=== PATIENT | female | born 1945 | race Caucasian/White ===

== ENCOUNTER → 2017-05-31 | Day surgery (SDC) | payer OTHER ==
[2017-05-09 15:07] VITALS: Ht 161.3 cm; Wt 95.5 kg
[~2017-05-31] VITALS: Ht 161.3 cm; Wt 95.5 kg
[~2017-05-31] MED LIST: 500ML BSS 0.3ML EPI 1:1000PF IRRIG ONE; ACETAMINOPHEN 325 MG TAB PO PRN; AMLO10TA3 PO; AMVISC PLUS 0.8ML SYRINGE INT OCU ONE; ATROPINE SULFATE 0.1 MG/ML 5ML SYR IV PRN; BSS FLUSH ONE; COEN100C11 PO; ENDOCOAT 0.85ML SYRINGE INT OCU ONE; EpHEDrine SULFATE INJ 50 MG/ML AMP IV PRN; EpINEphrine INJ 1MG/ML AMP 1 MG/ML AMP ONE; HYDR12.56 PO; LACTATED RINGER'S 1000ML 500 ML IV SCH; LIDOCAINE 4% OP SOLN DROP CHARGE ONE; LIDOCAINE 4% OP SOLN DROP CHARGE OPR SCH; LOSA50TA54 PO; METO50TA16 PO; MIDAZOLAM HCL 1 MG/ML 2ML VIAL ONE; MIX: 4ML BSS 1ML EPI 1:1000 PF TOP ONE; MOXIFLOXACIN OPH SOLN PER DROP CHARGE ONE; MULT-506 PO; OMG3 PO; POVIDONE-IODINE OP SOLN 30 ML BTL ONE; PROPARACAINE 0.5% OP SOLN PER DROP CHARGE OPR SCH; TOBRAMYCIN/DEXAMETHASONE OPH OINT PER APPLN CHARGE ONE
[2017-05-31] MEDS: PHENYLEPHRINE HCL 2.5% OP SOLN PER DROP CHARGE OPR SCH ×3 (11:17→11:27)
[2017-05-31] MEDS: TROPICAMIDE 1% OP SOLN PER DROP CHARGE OPR SCH ×3 (11:18→11:28)
[2017-05-31] MEDS: CYCLOPENTOLATE HCL 1% OP SOLN PER DROP CHARGE OPR SCH ×3 (11:19→11:29)
[2017-05-31] MEDS: MOXIFLOXACIN OPH SOLN PER DROP CHARGE OPR SCH ×3 (11:20→11:30)
--- NOTE | 2017-05-31 11:41 | History & Physical Bridge - [place] ---
H&P Re-Evaluation Bridge Note: I have examined the patient, reviewed the History & Physical and in the interval since the performance of the History & Physical I have noted the following changes of clinical significance: No changes noted
[2017-05-31] MEDS: LIDOCAINE HCL 1% MPF 2 ML VIAL ONE ×2 (12:37→12:39)
--- NOTE | 2017-05-31 12:48 | [facility] Post Operative Brief Note ---
Immediate Operative Summary Operative Date May 31, 2017. Pre-Operative Diagnosis Right eye cataract Post-Operative Diagnosis Same as pre-op Procedure(s) Performed Right Cataract Phacoemulsification With Intraocular Lens Implant Surgeon House Painter Helper Surgeon(s) None Estimated Blood Loss Zero Findings right cataract Specimens None Complication(s) None Disposition
[2017-05-31 12:49] VITALS: TEMP 36.4
--- NOTE | 2017-05-31 12:49 | [facility] Operative Report ---
Operative Report Date of Service May 31, 2017. Operative Report DATE OF OPERATION: 05/31/17 PREOPERATIVE DIAGNOSIS: Senile nuclear cataract, right eye POSTOPERATIVE DIAGNOSIS: Senile nuclear cataract, right eye PROCEDURE PERFORMED: Phacoemulsification with intraocular lens implantation, right eye SURGEON: Dr. Maycol Skaggs ANESTHESIA: Topical with 1% intracameral lidocaine and monitored anesthesia care COMPLICATIONS: None DESCRIPTION OF PROCEDURE: After positively identifying the patient both verbally and by wristband in the preoperative area, the right eye was marked as the operative eye. The patient was then brought back to the operating room by the anesthesia and nursing staff where they were given a drop of Lidocaine and betadine into the operative eye. They were then sterilely prepped and draped in the standard fashion typical for ophthalmic surgery. Steri-strips were placed along the upper eyelids to keep the lashes back, and a lid speculum was placed into the operative eye. At this point, a documented time out was performed with members of the ophthalmology, nursing, and anesthesia staffs all agreeing upon the correct patient, correct location for surgery, correct procedure, and correct type and power of intraocular lens to be implanted. The microscope was then swung into position. First, a paracentesis wound was made using a sideport blade. Then, in sequence, 1% preservative-free lidocaine followed by Endocoat viscoelastic was injected into the anterior chamber. Next , the main incision was made with a keratome blade in triplanar fashion. A sharp cystotome was introduced into the eye and used to create a tear in the anterior capsule, which was directed into a continuous curvilinear capsulorrhexis using Utrata forceps. Hydrodissection was then performed with BSS on a flat-tip cannula. Next, the phacoemulsification handpiece was introduced into the eye and used to remove the nucleus in a [id number] fashion. This was done without complication and then the irrigation-aspiration handpiece was introduced into the eye and used to remove all remaining cortical and epinuclear material. Amvisc was then injected into the anterior chamber as well as into the capsular bag and using the lens injector system, an MX60 21.5 D lens, serial number [id number], and expiration date 12/2018 was injected into the capsular bag and rotated into the correct position. Next, the irrigation- aspiration handpiece was used to remove all remaining Amvisc. BSS was used to hydrate the main wound, and then BSS was injected into the paracentesis site to reach physiologic pressure and then the main wound was checked and found to be watertight. The patient was given drops of Vigamox and Tobradex ointment into the operative eye, and then the surrounding area was cleaned and dried. A clear plastic shield was placed over the eye and the patient was then sat up and taken from the operating room by the anesthesia staff having tolerated the procedure well and suffering no complications. DISPOSITION: The patient was returned to the recovery room in stable condition. I attest to the content of the Intraoperative Record and any orders documented therein. Any exceptions are noted below.
--- NOTE | 2017-05-31 12:50 | Discharge Instructions-SurgCtr ---
Discharge Instructions Date of Service May 31, 2017. Visit Reason for Visit: Right Cataract Discharge Discharge Diagnosis / Problem: right cataract Discharge Goals Goal(s): Decrease discomfort, Improve function Activity Recommendations Activity Limitations: as noted below Anesthesia . Post Anesthesia Instructions: If you have had General Anesthesia or IV Sedation: * Do not drive today. * Resume driving when surgeon permits. * Do not make important decisions or sign legal documents today. * Call surgeon for: 1. Temperature elevations greater than 101 degrees F. 2. Uncontrollable pain. 3. Excessive bleeding. 4. Persistent nausea and vomiting. 5. Medication intolerance (nausea, vomiting or rash). * For nausea and vomiting use only clear liquids such as: tea, soda, bouillon until nausea subsides, then gradually increase diet as tolerated. * If you have any concerns or questions, call your surgeon's office. If physician is unavailable and it is an emergency, call 911 or go to the nearest emergency room. . Instructions / Follow-Up Instructions / Follow-Up ACTIVITY RECOMMENDATIONS: * Light activities. * You may walk outside, read, watch television. * You may notice redness on the white part of the eye and some blurry vision - this is normal. MEDICATIONS: Resume previous medications unless instructed otherwise by your surgeon. Start all eye drops at 3 pm today: * Eye drops (today): Prednisone - one drop in operative eye every 2 hours while awake Ofloxacin - one drop in operative eye every 2 hours while awake Prolensa - one drop in operative eye daily SPECIAL CARE INSTRUCTIONS: * Tape plastic shield over eye to sleep at night. Call your doctor at with any concerns or problems. FOLLOW UP VISIT: Follow-up with Dr Skaggs at [place] office as scheduled. Diet Recommendations Home Diet: no limitations Procedures Procedures Performed: Right Cataract Phacoemulsification With Intraocular Lens Implant Pending Studies Studies pending at discharge: no Medical Emergencies . Who to Call and When: Medical Emergencies: If at any time you feel your situation is an emergency, please call 911 immediately. . Non-Emergent Contact Non-Emergency issues call your: Surgeon . . "Provider Documentation" section prepared by Maycol Skaggs. .
[2017-05-31 13:05] VITALS: BP 155/78; PULSE 59; O2SAT 99
--- NOTE | 2017-05-31 13:11 | Anesthesia Progress Nt - [facility] ---
Anesthesia Post Op Note Date & Time May 31, 2017 at 13:11 Vital Signs Pain Intensity: 0 Vital Signs Past 12 Hours Date Time Temp Pulse Resp B/P (MAP) Pulse Ox O2 Delivery O2 Flow Rate FiO2 05/31/17 13:05 59 20 155/78 (103) 99 Room Air 05/31/17 12:49 36.4 56 16 157/83 (107) 99 Room Air 05/31/17 11:14 36.6 60 16 181/93 (122) 98 Notes Mental Status: alert / awake / arousable, participated in evaluation Pt Amnestic to Procedure: Yes Nausea / Vomiting: adequately controlled Pain: adequately controlled Airway Patency, RR, SpO2: stable & adequate BP & HR: stable & adequate Hydration State: stable & adequate Anesthetic Complications: no major complications apparent
== END | disposition home or self-care (01) ==
LOC: X.SURG 10:54
PROVIDERS: ATTEND Ophthalmology
DX: H25.11 Age-related nuclear cataract, right eye (principal); I10 Essential (primary) hypertension; E78.00 Pure hypercholesterolemia, unspecified; G62.9 Polyneuropathy, unspecified; Z79.899 Other long term (current) drug therapy

== ENCOUNTER → 2017-06-14 | Day surgery (SDC) | payer OTHER ==
[2017-06-13 14:50] VITALS: Ht 161.3 cm; Wt 95.5 kg
[~2017-06-14] VITALS: Ht 161.3 cm; Wt 95.5 kg
[~2017-06-14] MED LIST changes: +AMLO-114 PO; -AMLO10TA3 PO; +LIDOCAINE 4% OP SOLN DROP CHARGE OPL SCH; -LIDOCAINE 4% OP SOLN DROP CHARGE OPR SCH; -MOXIFLOXACIN OPH SOLN PER DROP CHARGE ONE; +PROPARACAINE 0.5% OP SOLN PER DROP CHARGE OPL SCH; -PROPARACAINE 0.5% OP SOLN PER DROP CHARGE OPR SCH
[2017-06-14] MEDS: PHENYLEPHRINE HCL 2.5% OP SOLN PER DROP CHARGE OPL SCH ×3 (08:13→08:23)
[2017-06-14] MEDS: TROPICAMIDE 1% OP SOLN PER DROP CHARGE OPL SCH ×3 (08:14→08:24)
[2017-06-14] MEDS: CYCLOPENTOLATE HCL 1% OP SOLN PER DROP CHARGE OPL SCH ×3 (08:15→08:25)
[2017-06-14] MEDS: MOXIFLOXACIN OPH SOLN PER DROP CHARGE OPL SCH ×3 (08:16→08:26)
[2017-06-14] MEDS: MOXIFLOXACIN OPH SOLN PER DROP CHARGE ONE ×2 (09:16→09:17)
[2017-06-14] MEDS: LIDOCAINE HCL 1% MPF 2 ML VIAL ONE ×2 (09:17→09:18)
--- NOTE | 2017-06-14 09:28 | [facility] Post Operative Brief Note ---
Immediate Operative Summary Operative Date Jun 14, 2017. Pre-Operative Diagnosis Cataract left eye Post-Operative Diagnosis Same as pre-op Procedure(s) Performed Left Cataract Phacoemulsification With Intraocular Lens Implant Surgeon Bricklayer Supervisor Surgeon(s) None Estimated Blood Loss Zero Findings left cataract Specimens None Complication(s) None Disposition
--- NOTE | 2017-06-14 09:29 | [facility] Operative Report ---
Operative Report Date of Service Jun 14, 2017. Operative Report DATE OF OPERATION: 06/14/17 PREOPERATIVE DIAGNOSIS: Senile nuclear cataract, left eye POSTOPERATIVE DIAGNOSIS: Senile nuclear cataract, left eye PROCEDURE PERFORMED: Phacoemulsification with intraocular lens implantation, left eye SURGEON: Dr. Maycol Skaggs ANESTHESIA: Topical with 1% intracameral lidocaine and monitored anesthesia care COMPLICATIONS: None DESCRIPTION OF PROCEDURE: After positively identifying the patient both verbally and by wristband in the preoperative area, the left eye was marked as the operative eye. The patient was then brought back to the operating room by the anesthesia and nursing staff where they were given a drop of Lidocaine and betadine into the operative eye. They were then sterilely prepped and draped in the standard fashion typical for ophthalmic surgery. Steri-strips were placed along the upper eyelids to keep the lashes back, and a lid speculum was placed into the operative eye. At this point, a documented time out was performed with members of the ophthalmology, nursing, and anesthesia staffs all agreeing upon the correct patient, correct location for surgery, correct procedure, and correct type and power of intraocular lens to be implanted. The microscope was then swung into position. First, a paracentesis wound was made using a sideport blade. Then, in sequence, 1% preservative-free lidocaine followed by Endocoat viscoelastic was injected into the anterior chamber. Next , the main incision was made with a keratome blade in triplanar fashion. A sharp cystotome was introduced into the eye and used to create a tear in the anterior capsule, which was directed into a continuous curvilinear capsulorrhexis using Utrata forceps. Hydrodissection was then performed with BSS on a flat-tip cannula. Next, the phacoemulsification handpiece was introduced into the eye and used to remove the nucleus in a [id number]-nvx-logggqz fashion. This was done without complication and then the irrigation-aspiration handpiece was introduced into the eye and used to remove all remaining cortical and epinuclear material. Amvisc was then injected into the anterior chamber as well as into the capsular bag and using the lens injector system, an MX60 23.0 D lens, serial number [id number], and expiration date 01/2020 was injected into the capsular bag and rotated into the correct position. Next, the irrigation- aspiration handpiece was used to remove all remaining Amvisc. BSS was used to hydrate the main wound, and then BSS was injected into the paracentesis site to reach physiologic pressure and then the main wound was checked and found to be watertight. The patient was given drops of Vigamox and Tobradex ointment into the operative eye, and then the surrounding area was cleaned and dried. A clear plastic shield was placed over the eye and the patient was then sat up and taken from the operating room by the anesthesia staff having tolerated the procedure well and suffering no complications. DISPOSITION: The patient was returned to the recovery room in stable condition. I attest to the content of the Intraoperative Record and any orders documented therein. Any exceptions are noted below.
--- NOTE | 2017-06-14 09:30 | Discharge Instructions-SurgCtr ---
Discharge Instructions Date of Service Jun 14, 2017. Visit Reason for Visit: Cataract Left Eye Discharge Discharge Diagnosis / Problem: left cataract Discharge Goals Goal(s): Decrease discomfort, Improve function Activity Recommendations Activity Limitations: as noted below Anesthesia . Post Anesthesia Instructions: If you have had General Anesthesia or IV Sedation: * Do not drive today. * Resume driving when surgeon permits. * Do not make important decisions or sign legal documents today. * Call surgeon for: 1. Temperature elevations greater than 101 degrees F. 2. Uncontrollable pain. 3. Excessive bleeding. 4. Persistent nausea and vomiting. 5. Medication intolerance (nausea, vomiting or rash). * For nausea and vomiting use only clear liquids such as: tea, soda, bouillon until nausea subsides, then gradually increase diet as tolerated. * If you have any concerns or questions, call your surgeon's office. If physician is unavailable and it is an emergency, call 911 or go to the nearest emergency room. . Instructions / Follow-Up Instructions / Follow-Up ACTIVITY RECOMMENDATIONS: * Light activities. * You may walk outside, read, watch television. * You may notice redness on the white part of the eye and some blurry vision - this is normal. MEDICATIONS: Resume previous medications unless instructed otherwise by your surgeon. Start all eye drops at 11:30 am today: * Eye drops (today): Prednisone - one drop in operative eye every 2 hours while awake Ofloxacin - one drop in operative eye every 2 hours while awake Prolensa - one drop in operative eye daily SPECIAL CARE INSTRUCTIONS: * Tape plastic shield over eye to sleep at night. Call your doctor at with any concerns or problems. FOLLOW UP VISIT: Follow-up with Dr Skaggs at [facility] as scheduled. Diet Recommendations Home Diet: no limitations Procedures Procedures Performed: Left Cataract Phacoemulsification With Intraocular Lens Implant Pending Studies Studies pending at discharge: no Medical Emergencies . Who to Call and When: Medical Emergencies: If at any time you feel your situation is an emergency, please call 911 immediately. . Non-Emergent Contact Non-Emergency issues call your: Surgeon . . "Provider Documentation" section prepared by Maycol Skaggs. .
[2017-06-14 09:33] VITALS: TEMP 36.6
--- NOTE | 2017-06-14 09:41 | Anesthesiology Progress Note ---
Anesthesia Post Op Note Date & Time Jun 14, 2017 at 09:41 Vital Signs Pain Intensity: 0 Vital Signs Past 12 Hours Date Time Temp Pulse Resp B/P (MAP) Pulse Ox O2 Delivery O2 Flow Rate FiO2 06/14/17 08:03 36.5 58 18 144/87 (106) 95 Room Air Notes Mental Status: alert / awake / arousable, participated in evaluation Nausea / Vomiting: adequately controlled Pain: adequately controlled Airway Patency, RR, SpO2: stable & adequate BP & HR: stable & adequate Hydration State: stable & adequate Anesthetic Complications: no major complications apparent
[2017-06-14 09:55] VITALS: BP 133/85; PULSE 56; O2SAT 97
== END | disposition home or self-care (01) ==
LOC: X.SURG 07:54
PROVIDERS: ATTEND Ophthalmology
DX: H25.12 Age-related nuclear cataract, left eye (principal); I10 Essential (primary) hypertension; E78.00 Pure hypercholesterolemia, unspecified

== ENCOUNTER 2023-04-17 09:05 | Observation (INO) ==
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
[~2023-04-17 09:05] MED LIST changes: -500ML BSS 0.3ML EPI 1:1000PF IRRIG ONE; +ACETAMINOPHEN 1000 MG/100 ML IV IV ONE; -ACETAMINOPHEN 325 MG TAB PO PRN; +ALLERGY Noted to ORDERED Medication SCH; -AMLO-114 PO; -AMVISC PLUS 0.8ML SYRINGE INT OCU ONE; -ATROPINE SULFATE 0.1 MG/ML 5ML SYR IV PRN; -BSS FLUSH ONE; -COEN100C11 PO; -ENDOCOAT 0.85ML SYRINGE INT OCU ONE; +ENOXAPARIN INJ 30 MG/0.3 ML SYR SQ SCH; -EpHEDrine SULFATE INJ 50 MG/ML AMP IV PRN; -EpINEphrine INJ 1MG/ML AMP 1 MG/ML AMP ONE; -HYDR12.56 PO; +LACTATED RINGER'S 1,000 ML IV SCH; -LACTATED RINGER'S 1000ML 500 ML IV SCH; -LIDOCAINE 4% OP SOLN DROP CHARGE ONE; -LIDOCAINE 4% OP SOLN DROP CHARGE OPL SCH; -LOSA50TA54 PO; -METO50TA16 PO; -MIDAZOLAM HCL 1 MG/ML 2ML VIAL ONE; -MIX: 4ML BSS 1ML EPI 1:1000 PF TOP ONE; -MULT-506 PO; -OMG3 PO; -POVIDONE-IODINE OP SOLN 30 ML BTL ONE; -PROPARACAINE 0.5% OP SOLN PER DROP CHARGE OPL SCH; -TOBRAMYCIN/DEXAMETHASONE OPH OINT PER APPLN CHARGE ONE; +ceFAZolin 2000MG 2,000 MG/15 ML SYR IV SCH
[2023-04-17] MEDS ORDERED: fentaNYL citrate PF 100 MCG/2 ML VIAL ONE ×2 (09:26→11:53)
[2023-04-17] MEDS ORDERED: ONDANSETRON INJ 2 MG/ML 2 ML VIAL IV PRN ×2 (10:04→16:08)
[2023-04-17] MEDS ORDERED: fentaNYL citrate PF 100 MCG/2 ML VIAL IV PRN (10:04)
[2023-04-17] MEDS ORDERED: ePHEDrine sulfate 50 MG/ML AMP IV PRN (10:04)
[2023-04-17] MEDS ORDERED: ATROPINE SULFATE 0.1 MG/ML 10ML SYR IV PRN (10:04)
[2023-04-17] MEDS ORDERED: BUPIVACAINE LIPOSOME 1.3% 266 MG/20 ML VIAL ONE (10:13)
[2023-04-17] MEDS ORDERED: METHYLENE BLUE 0.5% 10 ML VIAL ONE (10:13)
[2023-04-17] MEDS ORDERED: BUPIVACAINE 0.25% PF 30 ML VIAL ONE (10:14)
--- NOTE | 2023-04-17 10:16 | History & Physical Bridge Note ---
Date of Service April 17, 2023 History & Physical Bridge Note I have examined the patient, reviewed the History & Physical and in the interval since the performance of the History & Physical I have noted the following changes of clinical significance: no changes noted
[2023-04-17] MEDS ORDERED: ceFAZolin 2,000 MG/15 ML IV PUSH IV ONE (10:30)
[2023-04-17] MEDS ORDERED: Nursing to Pharmacy Communication SCH (10:30)
[2023-04-17] MEDS ORDERED: PROPOFOL IV EMULSION 10 MG/ML 20 ML VIAL IV ONE (11:27)
[2023-04-17] MEDS ORDERED: LIDOCAINE 2% 2 ML VIAL/AMP(20MG/ML) INFIL ONE (11:27)
[2023-04-17] MEDS ORDERED: ONDANSETRON INJ 2 MG/ML 2 ML VIAL ONE (11:27)
[2023-04-17] MEDS ORDERED: DEXAMETHASONE SOD INJ 4 MG/ML VIAL ONE (11:27)
--- NOTE | 2023-04-17 12:52 | Post Operative Brief Note ---
Immediate Post Op Note v1 Date of Surgery April 17, 2023 Pre & Post Diagnosis Operation Date: 04/17/23 10:30 Pre-Op Diagnosis: Carcinoma of Left Breast Metastatic to Axillary Post-Op Diagnosis: Carcinoma of Left Breast Metastatic to Axillary I identified the patient and participated in the time-out.: Yes Procedure Operation Date: 04/17/23 10:30 Actual Procedures p Left Mastectomy, Left Axillary [place] Lymph Node Biopsy and Axillary Mary Manager Research Localized Lymph Node Excision(Left) - Jayro Merrill MD Surgeon Jayro Merrill MD Eyedotter TRAV Anne assisted with tissue retraction, camera op, closure Estimated Blood Loss 25 Findings Consistent with Post-Op Diagnosis Drains Andrews-Gonzalez Drain (10 fr flat)
--- NOTE | 2023-04-17 12:59 | Operative Report ---
Post Operative Report Pre & Post Diagnosis Operation Date: 04/17/23 10:30 Pre-Op Diagnosis: Carcinoma of Left Breast Metastatic to Axillary Post-Op Diagnosis: Carcinoma of Left Breast Metastatic to Axillary I identified the patient and participated in the time-out.: Yes Procedure Operation Date: 04/17/23 10:30 Actual Procedures p Left Mastectomy, Left Axillary [place] Lymph Node Biopsy and Axillary Mary Record Changer Assembler Localized Lymph Node Excision(Left) - Jayro Merrill MD Surgeon Jayro Merrill MD Water Filtration Technician TRAV Anne assisted with tissue retraction, camera op, closure Estimated Blood Loss 25 Findings Consistent with Post-Op Diagnosis Specimens 1. Left breast mastectomy 2. [place] lymph node #1, 151 count, hot and blue 3. [place] lymph node #2, 20 count 4. [place] lymph node #3, 17 count 5. [place] lymph node #4, 18 count 6. Additional axillary tissue Drains 10 Japanese flat NEFTALI Anesthesia Type General Complications No immediate complications Description of Procedure Patient was taken the operating room, placed supine on the operating table. A timeout was performed, perioperative antibiotics were administered, SCD boots were placed. After adequate anesthesia and analgesia was obtained, a Nettles catheter was placed.4 cc of methylene blue was injected into and around the area of the nipple areolar complex, and was massaged into place. The patient was prepped and draped in the normal sterile fashion. The breast had been marked in the preoperative holding area, and the incision line was again marked on the chest wall. Elliptical incision was made with a 15 blade scalpel carried into the level of subcutaneous tissue. Flaps were raised 360 degree fashion, removing the underlying breast tissue from the overlying skin and subcutaneous fat. This was done with a traction countertraction technique using [place]una retractors. The extent of the dissection was the clavicle superiorly, the sternum medially, the rectus sheath fascia inferiorly, and the axillary fat pad laterally. Once the flap was raised into the axillary fat pad, we turned our attention to the sentinel node. The previously biopsied node had been marked preoperatively with a Mary fountain worker reflector. Using the Mary fountain worker device as well as the neoprobe, we were able to identify the sentinel lymph node, which was also the node containing the savvy fountain worker reflector. This was dissected free circumferentially with the electrocautery as well as the LigaSure device, and was sent off field for specimen. The count on this was 151. Further exploration of the axilla yielded 3 more sentinel nodes with counts of 17, 21, and 17. There was some further abnormal appearing fatty tissue that was removed and sent off the field for specimen as well. Once complete, attention was turned back to the breast. The breast was removed from the underlying pectoralis major muscle with the electrocautery, taking care to remove the pectoralis fascia with the breast. It was oriented with stitches and ink and was sent off the field for specimen. Attention was then turned to hemostasis, which was attended to and was excellent. The wound was copiously irrigated and suctioned free. Exparel and quarter percent Marcaine were mixed and was injected into the flaps and the underlying muscle. 40 cc was used. Again hemostasis was checked and attended to and was excellent. A 10 Japanese flat drain was placed through a separate stab incision was secured with a 3-0 nylon suture. The subcutaneous tissue was closed with interrupted 3-0 Vicryl. Skin was closed with running 4-0 Monocryl subcuticular stitch. Dermabond was applied. She tolerated the procedure without complication, was transferred in stable condition to the PACU. All instrument, needle, and sponge counts were correct at the end of the case. My medical assistant cardiology was necessary throughout the procedure for tissue retraction, possible camera operation, and closure of the wounds. I understand that section 1842(b)(7)(D) of the Social Security act generally prohibits Medicare physician fee schedule payment for the services of assistants at surgery in teaching hospitals when qualified residents are available to furnish such services. I certify that the services for which payment is claimed were medically necessary and that no qualified resident was available to perform the services. I further understand that these services are subject to postpayment review by the Medicare carrier. I attest to the content of the Intraoperative Record and any orders documented therein. Any exceptions are noted below.
[2023-04-17] MEDS ORDERED: PROMETHAZINE HCL INJ 25 MG/ML 1 ML VIAL ONE (13:32)
[2023-04-17] MEDS ORDERED: PROMETHAZINE HCL 6.25 MG in SODIUM CHLORIDE 0.9% 50 ML IV STA ×2 (13:38→13:54)
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
--- NOTE | 2023-04-17 14:08 | Anesthesiology Progress Note ---
Date of Service April 17, 2023 Anesthesia Post Procedure Vital Signs Vital Signs: Temp Pulse Resp BP Pulse Ox O2 Del Method O2 Flow Rate 04/17/23 14:00 75 16 154/74 H 97 Nasal Cannula 2 04/17/23 13:50 76 18 148/74 H 94 Nasal Cannula 2 04/17/23 13:40 77 18 126/91 94 Nasal Cannula 2 04/17/23 13:30 81 16 151/59 H 96 Nasal Cannula 2 04/17/23 13:20 76 16 134/72 95 Oxymask 5 04/17/23 13:12 36.4 C L 80 17 142/73 H 95 Oxymask 5 04/17/23 09:59 36.8 C 61 20 157/88 H 97 Room Air Transfer of Care Handoff Completed per policy Notes Mental Status: alert / awake / arousable and participated in evaluation Patient Amnestic to Procedure: Yes Nausea / Vomiting: adequately controlled Pain: adequately controlled Airway Patency, RR, SpO2: stable & adequate BP & HR: stable & adequate Hydration State: stable & adequate Anesthetic Complications: no major complications apparent and Pt Satisfied with anesthetic care
--- NOTE | 2023-04-17 15:11 | Mammography Report ---
SPECIMEN LEFT BREAST: 04/17/2023 CLINICAL HISTORY: 78-year-old woman presents at time of left mastectomy and axillary lymph node excis ion. Preoperative [employer] localization performed of the left axillary lymph node on March 29. COMPARISON: Comparison is made to exams dated: 03/29/2023 mammogram, 03/29/2023 localization - [facility], 03/13/2023 mammogram, 01/26/2023 mammogram, 01/26/2023 ultrasound, and 01/03/2023 ultrasound. FINDINGS: Specimen radiography was performed of the left axillary surgical excision specimen. The sp ecimen demonstrates an ovoid density with internal metallic Saturn shaped biopsy clip and adjacent me tallic [employer] reflector. These findings are compatible with successful preoperative localization and subsequent surgical excision, and this was relayed via telephone to the operating room during eaton rgery. Final surgical pathology is pending. IMPRESSION: SPECIMEN Left axillary surgical excision specimen radiograph, as above. Nafisa Govea M.D. ay/:04/17/2023 12:56:51 Facility Coordinator: OR Technologist, [facility]
--- NOTE | 2023-04-17 15:23 | Nuclear Medicine Report ---
LYMPHOSCINTIGRAPHY CLINICAL HISTORY: Carcinoma of Left Breast Metastatic to Axillary PROCEDURE: Using standard sterile technique, 4 intradermal and one deep injection of 2.5 mCi of Lymph oseek was placed in the left breast. The patient tolerated the procedure well. There were no immediat e complications. The patient was subsequently transported to the surgical suite. No imaging was obtai sarah at the referring physician's request. IMPRESSION: Satisfactory injection of Lymphoseek in the left breast. ACT 112: Negative or not required by law. Electronically signed by: Guanaco Celis M.D. 04/17/2023 3:22 PM
[2023-04-17] MEDS ORDERED: PROMETHAZINE HCL 12.5 MG in SODIUM CHLORIDE 0.9% 50 ML IV PRN (16:08)
[2023-04-17] MEDS ORDERED: oxyCODONE/ACETAMINOPHEN 5mg/325mg TAB PO PRN (16:08)
[2023-04-17] MEDS ORDERED: MoRPHine SULFATE 2 MG/ML CARP IV PRN (16:08)
[2023-04-17] MEDS ORDERED: diphenhydrAMINE Capsule 25 MG CAP PO PRN (16:08)
[2023-04-18 06:22] LABS: Hematocrit (blood only) 33.1 % (37.0-47.0); Hemoglobin 11.1 g/dl (12.0-16.0); Mean Corpuscular Hemoglobin 30.2 pg (25.0-34.0); Mean Corpuscular Hgb Conc 33.5 g/dL (32.0-36.0); Mean Corpuscular Volume 89.9 fL (80.0-100.0); Mean Platelet Volume 10.5 fL (9.4-12.4); Platelet Count 203 K/uL (130-400); RDW Standard Deviation 45.3 fL (36.4-46.3); Red Blood Count 3.68 M/uL (4.20-5.40)
[2023-04-18 06:40] LABS: BUN Creatinine Ratio 22.5 (10-20); Calcium 9.1 mg/dl (8.6-10.3); Creatinine Clr Calc Pharmacy 56.3 ml/min; Potassium 4.1 mmol/L (3.5-5.1)
--- NOTE | 2023-04-18 07:52 | Surgery Progress Note ---
Date of Service April 18, 2023 Assessment & Plan (1) S/P left mastectomy: Plan: POD#1 s/p left mastectomy and sentinel lymph node biopsy for left breast cancer doing well advance diet as tolerated ambulate will d/c to home later this morning/early afternoon Admission and Anticipated Discharge Date Admission Date: April 17, 2023 Subjective doing well; no complaints; no pain. tolerating diet; no nausea/vomiting Physical Exam Physical Exam: AFVSS NAD A&Ox3 Dressings C/D/I minimal TTP left chest wall NEFTALI drain with serosanguinous drainage Results & Data Vital Signs (Past 12 Hours) Vital Signs Temp Pulse Resp BP Pulse Ox O2 Del Method 04/18/23 07:11 36.6 C 72 18 131/55 L 96 Room Air 04/18/23 02:43 36.5 C 71 16 125/66 97 Room Air 04/17/23 23:05 36.5 C 79 16 126/61 94 Room Air 04/17/23 20:30 Room Air
[2023-04-18] MEDS ORDERED: ENOXAPARIN INJ 40 MG/0.4 ML SYR SQ SCH (08:00)
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
--- OUTSIDE RECORDS SUMMARY | 2023-04-19 06:42 | External Medical Summary | Summary of Care ---
Author Name Unknown Organization [facility] Address [address] [place] [address] Phone [phone] Care Team Providers Care Supervisor Dental Laboratory Name Role Phone Isabel Morales Primary Care Provider [phone] Reason for Visit * Reason Onset Date Comments Scheduling 03/21/2023 Dispo from 03/21 Encounter Details Date Type Department Care Team (Late st Contact Info) Description 03/21/2023 Telephone Hematology/Oncology, [address] [address] Kevan Vickers MD [address] [place] [address] Scheduling (Dispo from 03/21) Allergies Active Allergy Reactions Criticality Noted Date Comments Penicillins 02/07/2014 documented as of this encounter (statuses as of 04/06/2023) Medications Medication Sig Dispensed Refills Start Date End Date Status MULTI-VITAMINS PO TABS one daily 0 Active Tripoli 3 1000 MG CAPS Take by mouth 1 Tablet daily . 0 Active Atorvastatin Calcium 20 MG Oral Tablet (Lipitor) Take by mouth 1 Tablet in the morning. 34 Tablet 11 02/10/2022 Active Estradiol 0.1 MG/GM Vaginal Cream (Estrace) Administer 0.5 g into the vagina once a day Monday and only. At bedtime 42.5 g 3 09/29/2022 Active hydroCHLOROthiazide 12.5 MG Oral Capsule (Hydrodiuril)Indica tions:Physical exam, annual Take 1 Capsule by mouth in the morning. 90 Capsule 1 11/07/2022 Active Metoprolol Tartrate 50 MG Oral Tablet (Lopressor)Indicati ons:Physical exam, annual Take 1 Tablet by mouth in the morning and 1 Tablet before bedtime. 180 Tablet 1 11/08/2022 Active amLODIPine Besylate 10 MG Oral Tablet (Norvasc)Indication s:Physical exam, annual Take 1 Tablet by mouth in the morning. 90 Tablet 1 11/08/2022 Active Losartan Potassium 50 MG Oral Tablet (Cozaar)Indications :Essential hypertension, benign Take 1 Tablet by mouth in the morning. 90 Tablet 1 11/08/2022 Active Solifenacin Succinate 5 MG Oral Tablet (VESIcare) Take 1 Tablet by mouth in the morning. 90 Tablet 3 02/17/2023 Active documented as of this encounter (statuses as of 04/06/2023) Active Problems Problem Noted Date Diagnosed Date Advanced directives, counseling/discussion 08/06 Urge incontinence of urine 08/06/2021 Other hyperlipidemia 08/14/2018 Severe obesity (BMI 35.0-39.9) with comorbidity 08/10/2017 HTN, goal below 140/90 11/16/2015 Overview: Per HTN Protocol documented as of this encounter (statuses as of 04/06/2023) Resolved Problems Problem Noted Date Diagnosed Date Resolved Date Myelopathy 10/23/2018 01/26/2022 Obesity (BMI 35.0-39.9 without comorbidity) 08/10/2017 08/10/2017 Class 2 obesity with body ma ss index (BMI) of 35 to 39.9 without comorbidity 12/12/2016 8 HTN, goal below 140/80 05/26/201511/18 Overview: Per HTN Protocol Essential hypertension 10/06 Overview: ICD-10 update of inactive term documented as of this encounter (statuses as of 04/06/2023) Immunizations Name Administration Dates Next Due Pneumococcal Conjugate Vacc, 13 Valent (Prevnar) 05/26/2015 Pneumococcal Polysaccharide PPV23 (Pneumovax) documented as of this encounter Social History Tobacco Use Types Packs/Day Years Used Date Smoking Tobacco: Never Smokeless Tobacco: Never Alcohol Use Standard Drinks/Week Comments No 0 (1 standard drink = 0.6 oz pur e alcohol) PHQ-2 Answer Date Recorded PHQ Adult Total Score 0 01/26/2022 Hunger Vital Sign Answer Date Recorded Within the past 12 months, y ou worried that your food would run out before you got the money to buy more. Never true 01/27/20 22 Within the past 12 months, t he food you bought just didn't last and you didn't have money to get more. Never true 01/26/2022 Sex and Gender Information Value Date Recorded Sex Assigned at Female 10/23/2018 1:17 PM EDT Gender Identity Female 10/23/2018 1:17 PM EDT Sexual Orientation Straight 10/23/2018 1: 17 PM EDT Job Start Date Occupation Industry Not on file Not on file Not on file documented as of this encounter Miscellaneous Notes * Telephone Encounter - Keturah Lay OSA - 04/06/2023 10:21 AM EDT Pt seeing Gen Surg today (04/06) * Telephone Encounter - Keturah Lay OSA - 03/21/2023 3:28 PM EDT Called pt to scheduled for Office visit 2 months with CBC, diff, CMP But pt stated it needed to be after her surgery which she does not have a date for just yet. Sees Gen Surg on 04/06 and then we can call back after that appt to schedule return fro [facility]. documented in this encounter Plan of Treatment Upcoming Encounters Date Type Department Care Team (Late st Contact Info) Description 04/06/2023 11:00 AM EDT Office Visit General Surgery, [facility] [address] [id number] Jayro Merrill MD [address] [id number] 04/17/2023 7:20 AM EST Office Visit Non [facility], Operating Room, [facility] [address] [facility], [place] [address] Jayro Merrill MD [address] [address] 05/15/2023 2:40 PM EST Office Visit [facility] [address] [facility] [id number] Isabel Morales CRNP [address] [facility] [address] 05/24/2023 12:00 PM EST Laboratory Laboratory, [facility] [address] [place] [id number] [facility], Lab [address] [place] [address] 05/24/2023 1:00 PM EST Office Visit Hematology/Oncology, [facility] [address] [place] [address] Kevan Vickers MD [address] [place] [address] 09/15/2023 1:50 PM EDT Office Visit Dermatology, Tayla Reyes [place] [address] [facility] [address] [place] [address] Liliya Koch PA-C [address] [facility] [address] [place] [address] Health Maintenance Due Date Last Done Comments COVID-19 Vaccine (#1) 1945 DTaP,Tdap,and Td Vaccines (1 - Tdap) 1966 Zoster Vaccines (1 of 2) 1997 DXA Scan 03/26/2020 03/26/2013 Depression Screening 01/26/2023 01/26/2022 Influenza Vaccine (FLU shot) (#1) 2023 *NEPHROLOGY REFERRAL DUE TO RESISTANT HTN 03/12/2023 GFR 02/16/2024 02/15/2023, 06/0 02/2023, 01/26/2022, Additional history exists Albumin/Creatinine Ratio 01/26/2025 01/26/2022, 06/05 Colonoscopy Discontinued 01/11/2010 Pneumococcal Vaccine: 65+ Years Completed 05/26/2015, 04/04/2014 Cologuard Discontinued 01/02/2020, 12/04, 12/26/2019 Colorectal Cancer Screening Discontinued Fecal Occult Blood Test Discontinued GARDASIL-HPV IMMUNIZATION SERIES Aged Out No longer eligible based on patient's age to complete this topic Hepatitis B Aged Out No longer eligi ble based on patient's age to complete this topic MENINGOCOCCAL (MENACTRA/MENVEO) Aged Out No longer eligible based on patient's age to complete this topic Sigmoidoscopy Discontinued documented as of this encounter Medical Devices Implanted Type Area Supervisor Fine Grading Device Identifier Shelf Expiration Date Model / Serial / Lot Clip-03/13/2023 Implanted:Qty: 1 on 03/13/2023 by Michael Silveira DO Clip Left: Breast BARD [employer] 10/30/2024 / / [id number] [id number] Titnm 5/Ct - [id number] Implanted:Qty: 1 on 03/13/[address] [facility] CR BARD : [employer] [id number] / / documented as of this encounter Care Teams Supervisor Dental Laboratory Relationship Specialty Start Date End Date Isabel Morales CRNP [address] [facility] [place] [address] PCP - General Nurse Practitioner 11/11/22 documented as of this encounter
--- OUTSIDE RECORDS SUMMARY | 2023-04-19 06:42 | External Medical Summary | Summary of Care ---
Author Name Unknown Organization [facility] Address [address] [place] [address] Phone [phone] Care Team Providers Care Gas Well Drilling Manager Name Role Phone Isabel Morales Primary Care Provider +1- [phone] Reason for Visit * Reason Comments Outpatient Testing Encounter Details Date Type Department Care Team (Late st Contact Info) Description 04/06/2023 12:00 PM EDT Laboratory Laboratory, [facility] [address] [place] [address] [facility] [address] [place] [address] Pre-op examination Allergies Active Allergy Reactions Criticality Noted Date Comments Penicillins 02/07/2014 documented as of this encounter (statuses as of 04/06/2023) Medications Medication Sig Dispensed Refills Start Date End Date Status MULTI-VITAMINS PO TABS one daily 0 Active [place] 3 1000 MG CAPS Take by mouth [...] on file documented as of this encounter Plan of Treatment Upcoming Encounters Date Type Department Care Team (Late st Contact Info) Description 04/17/2023 7:20 AM EST Office Visit Non [facility], Operating Room, [facility] [address] [place] [facility] [address] [facility]ro Merrill [facility] [address] 05/03/2023 10:45 AM EST Office Visit General Surgery, [facility] [address] [facility] [place] [address] [facility] Merrill [facility] [address] [facility] [place] [address] 05/15/2023 2:40 PM EST Office Visit [facility] [place] [facility] [phone] Isabel Morales CRNP [address] [place] [address] 05/24/2023 12:00 PM EST Laboratory Laboratory, [address] [place] [phone] [facility], Lab [address] [place] [address] 05/24/2023 1:00 PM EST Office Visit Hematology/Oncology, [facility] [address] [place] [address] Kevan Vickers MD [address] [facility] [place] [address] 09/15/2023 1:50 PM EDT Office Visit Dermatology, [place] [address] [place] [address] Liliya Koch PA-C [address] [place] [address] Pending Results Name Type Priority Associated Diagnoses Date /Time CBC Lab Routine Pre-op examination 04/06/2023 11:58 AM EDT COMPREHENSIVE METABOLIC PANEL Lab Routine Pre-op examination 04/06/2023 11:58 AM EDT Health Maintenance Due Date Last Done Comments [...] this encounter Medical Devices Implanted Type Area Fuller Brush Worker Device Identifier Shelf Expiration Date Model / Serial / Lot Clip-03/13/2023 Implanted:Qty: 1 on 03/13/2023 by Michael Silveira DO Clip Left: Breast [employer] 10/30/2024 / / [id number] Titin 5/Ct - [id number] Implanted:Qty: 1 on 03/13/2023 at [facility] IR [facility] CR BARD : [employer] [id number] / / documented as of this encounter Visit Diagnoses Diagnosis Pre-op examination Preoperative examination, unspecified documented in this encounter Care Teams Gas Well Drilling Manager Relationship Specialty Start Date End Date Isabel Morales CRNP [address] [place] [address] PCP - General Nurse Practitioner 11/11/22 documented as of this encounter
--- OUTSIDE RECORDS SUMMARY | 2023-04-19 06:42 | External Medical Summary | Summary of Care ---
Author Name Unknown Organization [facility] Address [address] [place] [address] Phone [phone] Care Team Providers Care Pottery Striper Name Role Phone Isabel Morales Primary Care Provider +1- [phone] Reason for Visit * Reason Onset Date Comments Appointment 03/27/2023 Encounter Details Date Type Department Care Team (Late st Contact Info) Description 03/27/2023 Telephone General Surgery, [facility] [address] [place] [address] Services, Scheduling [address] [place] [address] Appointment Allergies Active Allergy Reactions Criticality Noted Date Comments Penicillins 02/07/2014 documented as of this encounter (statuses as of 03/27/2023) Medications Medication Sig Dispensed Refills Start Date End Date Status MULTI-VITAMINS PO TABS one daily 0 Active [place] 3 1000 MG CAPS Take by mouth [...] as of this encounter (statuses as of 03/27/2023) Active Problems Problem Noted Date Diagnosed Date Advanced directives, counseling/discussion 08/06 Urge incontinence of urine 08/06/2021 Other hyperlipidemia 08/14/2018 Severe obesity (BMI 35.0-39.9) with comorbidity 08/10/2017 HTN, goal below 140/90 11/16/2015 Overview: Per HTN Protocol documented as of this encounter (statuses as of 03/27/2023) Resolved Problems Problem Noted Date Diagnosed Date Resolved Date Myelopathy 10/23/2018 01/26/2022 Obesity (BMI 35.0-39.9 without comorbidity) 08/10/2017 08/10/2017 Class 2 obesity with body ma ss index (BMI) of 35 to 39.9 without comorbidity 12/12/2016 8 HTN, goal below 140/80 05/26/201511/18 Overview: Per HTN Protocol Essential hypertension 10/06 Overview: ICD-10 update of inactive term documented as of this encounter (statuses as of 03/27/2023) Immunizations Name Administration Dates Next Due Pneumococcal [...] encounter Miscellaneous Notes * Telephone Encounter - DARIUSZ Leonard - 03/27/2023 1:37 PM EDT LMOM for pt to confirm address of Mary Machine Maintenance Technician injections, [facility] building in front of [facility] at [address]. Appt is on 03/29/23 at 9:30 am documented in this encounter Plan of Treatment Upcoming Encounters Date Type Department Care Team (Late st Contact Info) Description 04/06/2023 11:00 AM EDT Office Visit General Surgery, [facility] [address] [place] [address] Jayro Merrill MD [address] [place] [address] 04/17/2023 7:20 AM EST Office Visit Non [facility], Operating Room, [facility] [address] [place] [address] Jayro Merrill MD [address] [place] [address] 05/15/2023 2:40 PM EST [facility] [address] [place] [phone] Isabel Morales, SWATHI [address] [place] [address] 09/15/2023 1:50 PM EDT Office Visit Dermatology, [place] [address] [place] [address] Liliya Koch PA-C [address] [place] [address] Health Maintenance Due Date Last Done Comments [...] this encounter Medical Devices Implanted Type Area Spd Tech Device Identifier Shelf Expiration Date Model / Serial / Lot Clip-03/13/2023 Implanted:Qty: 1 on 03/13/2023 by Michael Silveira DO Clip Left: Breast [employer] 10/30/2024 / / [id number] [place] 5/Ct - [id number] Implanted:Qty: 1 on 03/13/2023 at [facility] IR [facility] CR BARD : [employer] [id number] / / documented as of this encounter Care Teams Pottery Striper Relationship Specialty Start Date End Date Isabel Morales CRNP [address] [place] [address] PCP - General Nurse Practitioner 11/11/22 documented as of this encounter
--- OUTSIDE RECORDS SUMMARY | 2023-04-19 06:42 | External Medical Summary ---
Author Name Unknown Address Unknown Organization [facility] [address] [place] [address] Laboratory Report Ordering Provider Test Date Status DAVID SCOTT 04/06/2023 11:58:28 Final Observation Date Value Abnormality Reference (Units ) Status BUN 04/06/2023 11:58:28 21 Above high normal 6-20 (mg/dL) Final Creatinine 04/06/2023 11:58:28 0.8 0.5-1.0 (mg/dL) Final Glomerular filtration rate/1.73 sq M.predicted [Volume Rate/Area] in Serum, Plasma or Blood by Creatinine-based formula (CKD-EPI) 04/06/2023 11:58:28 76 >=60 (mL/min) Final eGFR is calculated based on the CKD-EPI 2020 equation SODIUM 04/06/2023 11:58:28 140 135-146 (m mol/L) Final Potassium 04/06/2023 11:58:28 4.5 3.5-5.1 (m mol/L) Final Cl 04/06/2023 11:58:28 102 98-107 (mm ol/L) Final CO2 04/06/2023 11:58:28 26 22-32 (mmo l/L) Final Anion gap 04/06/2023 11:58:28 12 7-15 (mmol /L) Final Glucose 04/06/2023 11:58:28 87 70-120 (mg /dL) Final Albumin 04/06/2023 11:58:28 4.3 3.8-5.0 (g /dL) Final AST (Aspartate aminotransferase) 04/06/2023 11:58:28 20 10-35 (U/L) Final Alk Phos 04/06/2023 11:58:28 76 35-130 (U/ L) Final Bilirubin, Total 04/06/2023 11:58:28 0.6 <=1 .2 (mg/dL) Final Calcium 04/06/2023 11:58:28 9.9 8.4-10.2 ( mg/dL) Final Protein 04/06/2023 11:58:28 7.1 6.0-8.3 (g /dL) Final ALT (Alanine aminotransferase) 04/06/2023 11:58:28 15 10-35 (U/L) Final Performing Location [facility] [address] [facility] [address]
--- OUTSIDE RECORDS SUMMARY | 2023-04-19 06:42 | External Medical Summary ---
Author Name Unknown Address Unknown Organization [facility] [address] [place] [address] Laboratory Report Ordering Provider Test Date Status DAVID SCOTT 04/06/2023 11:58:28 Final Observation Date Value Abnormality Reference (Units ) Status WBC, Total 04/06/2023 11:58:28 5.22 4.00-10.8 0 (K/uL) Final RBC 04/06/2023 11:58:28 4.53 3.85-5.15 (M/uL) Final Hemoglobin 04/06/2023 11:58:28 13.8 12.0-15.3 (g/dL) Final HCT 04/06/2023 11:58:28 42.1 36.0-45.2 (%) Final MCV 04/06/2023 11:58:28 92.9 81.5-97.5 (fL) Final MCH 04/06/2023 11:58:28 30.5 27.0-34.0 (pg) Final MCHC 04/06/2023 11:58:28 32.8 32.0-36.0 (g/dL) Final RDW 04/06/2023 11:58:28 14.3 11.5-15.5 (%) Final Platelets 04/06/2023 11:58:28 204 140-400 (K /uL) Final MPV 04/06/2023 11:58:28 10.3 6.6-11.1 ( fL) Final Performing Location [facility] [address] [place] [address]
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
--- OUTSIDE RECORDS SUMMARY | 2023-04-19 06:43 | External Medical Summary | Summary of Care ---
Author Name Unknown Organization [facility] Address [address] [place] [address] Phone [phone] Care Team Providers Care Fish Trapper Name Role Phone Isabel Morales Primary Care Provider +1- [phone] Encounter Details Date Type Department Care Team Description 03/13/2023 Hospital Encounter Radiology, [facility] [address] [place] [address] Arrived Allergies Active Allergy Reactions Severity Noted Date Comments Penicillins 02/07/2014 documented as of this encounter (statuses as of 03/14/2023) Medications Medication Sig Dispensed Refills Start Date End Date Status MULTI-VITAMINS PO TABS one daily 0 Active [place] 3 1000 MG CAPS Take by mouth [...] as of this encounter (statuses as of 03/14/2023) Active Problems Problem Noted Date Advanced directives, counseling/discussi on 08/06/2021 Urge incontinence of urine 08/06/2021 Other hyperlipidemia 08/14/2018 Severe obesity (BMI 35.0-39.9) with sridevi rbidity 08/10/2017 HTN, goal below 140/90 11/16/2015 Overview: Per HTN Protocol documented as of this encounter (statuses as of 03/14/2023) Resolved Problems Problem Noted Date Resolved Date Myelopathy 10/23/2018 01/26/2022 Obesity (BMI 35.0-39.9 without comorbidity) 01/201808/10/2017 Class 2 obesity with body ma ss index (BMI) of 35 to 39.9 without comorbidity 12/12/2016 08/10/2017 HTN, goal below 140/80 05/26/2015 6 Overview: Per HTN Protocol Essential hypertension 5 Overview: ICD-10 update of inactive term documented as of this encounter (statuses as of 03/14/2023) Immunizations Name Administration Dates Next Due Pneumococcal Conjugate Vacc, 13 Valent (Prevnar) 05/26/2015 Pneumococcal Polysaccharide PPV23 (Pneumovax) documented as of this encounter Social History Tobacco Use Types Packs/Day Years Used Date Smoking Tobacco: Never Smokeless Tobacco: Never Alcohol Use Standard Drinks/Week Comments No 0 (1 standard drink = 0.6 oz pur e alcohol) Food Insecurity Answer Date Recorded Within the past 12 months, y ou worried that your food would run out before you got money to buy more. Never true 01/26/2022 Within the past 12 months, t he food you bought just didn't last and you didn't have money to get more. Never true 01/26/2022 Sex Assigned at Date Recorded Female 10/23/2018 1:17 PM E DT Job Start Date Occupation Industry Not on file Not on file Not on file documented as of this encounter Plan of Treatment Upcoming Encounters Date Type Specialty Care Team Description 03/16/2023 Office Visit General Surgery Jayro Merrill MD [address] [place] [address] 03/21/2023 Telemedicine Hematology Oncology Kevan Vickers MD [address] 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) Malignant neoplasm of central portion of left female breast, unspecified estrogen receptor status (HCC) 03/13/2023 10:35 AM EDT Scheduled Orders Name Type Priority Associated Diagnoses Orde r Schedule SURGICAL PATHOLOGY Pathology Routine 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) Malignant neoplasm of central portion of left female breast, unspecified estrogen receptor status (HCC) Release Upon Ordering for 1 Occurrences starting 03/13/2023, 1 completed Health Maintenance Due Date Last Done Comments [...] this encounter Medical Devices Implanted Type Area Car Repairer Pullman Device Identifier Shelf Expiration Date Model / Serial / Lot Clip-03/13/2023 Implanted:Qty: 1 on 03/13/2023 by Michael Silveira DO Clip Left: Breast [employer] 10/30/2024 / / [id number] documented as of this encounter Procedures Procedure Name Priority Date/Time Associated Diagnosis Comments US GUIDED BREAST BIOPSY LEFT Routine 03/13/2023 11:30 AM EDT 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 No recommendations is pending pathology. Recommendations regarding management of the additional enhancing masses in the right breast is pending pathology results. Narrative 03/13/2023 3:23 PM EDT EXAM US GUIDED BREAST BIOPSY RIGHT; MAMMOGRAM POST BIOPSY CLIP PLACEMENT; US GUIDED BREAST BIOPSY LEFT- 03/13/2023 11:40 am; 03/13/2023 11:43 am; 03/13/2023 11:30 am HISTORY abnl MRI, check u/s for possible biopsy; Post US Bilateral Breast Biopsy - Clip Mammo; abnormal MRI; check u/s for possible biopsy She presents for MR directed ultrasound with intent to biopsy ultrasound correlates of MRI findings in both breasts. COMPARISON MRI DATED 02/23/2023. TECHNIQUE See below FINDINGS Preliminary ultrasound demonstrates an irregular hypoechoic mass with echogenic periphery in the 2 o'clock position approximately 6 cm from the nipple. This measures 0.6 x 0.9 x 0.7 cm and corresponds to the mass in the upper outer left breast on the recent MRI. A hypoechoic mass with a focus of calcification in the 11 o'clock position of the right breast, 4 cm from the nipple measures 0.9 x 0.5 x 1.0 cm. This likely corresponds to an enhancing mass near the central right breast on MRI dated 02/23/2023. There is no additional masses or sonographic correlates of the other enhancing masses identified in the right breast on the prior MRI. The above masses are targeted for biopsy. The left breast biopsy was performed phase followed by the right. Left breast biopsy A timeout procedure was performed and the patient's identification was verified. After discussion of the risks, benefits, and alternatives to the procedure as well as a detailed explanation of the procedure, the patient was given the opportunity to ask questions. After her questions were answered to her satisfaction, informed consent with agreement of procedure, site, and position was obtained. The procedure matches the verbalized consent. All necessary equipment was available prior to procedure. The side of the intended procedure was marked on the skin. Patient denies allergies to medications. She has no known blood dyscrasias and is not taking anticoagulant medication. Using aseptic technique, local anesthesia with buffered 10 cc of 1% lidocaine, and ultrasound guidance, core biopsy was performed of the mass. Passes through the target were documented. A heart shaped marker was placed in the mass. Successful clip placement was documented on orthogonal ultrasound images. On initial unilateral post biopsy right breast mammogram, the clip does not visualize in the left breast. Additional ultrasound evaluation of the area revealed no marker. A ribbon shaped marker was then placed at the sites of the biopsies. Repeat unilateral left breast mammogram revealed marker to be in appropriate position. The patient tolerated the procedure well, and there were no complications. Specimens were sent to surgical pathology and results are pending. Right breast biopsy Using aseptic technique, local anesthesia with buffered 10 cc of 1% lidocaine, and ultrasound guidance, core biopsy was performed of the mass . Passes through the target were documented. A heart shaped marker was placed in the mass. Unilateral right breast mammogram reveals the marker to be in appropriate position. The patient tolerated the procedure well, and there were no complications. Specimens were sent to surgical pathology and results are pending. Written discharge instructions were given to the patient and also the reviewed verbally with her. The patient expressed understanding of the instructions and was discharged from the department in stable condition. Procedure Note Michael Silveira DO - 03/13/2023 EXAM US GUIDED BREAST BIOPSY RIGHT; MAMMOGRAM POST BIOPSY CLIP PLACEMENT; USGUIDED BREAST BIOPSY LEFT- 03/13/2023 11:40 am; 03/13/2023 11:43 am;03/13/2023 11:30 am HISTORY abnl MRI, check u/s for possible biopsy; Post US Bilateral Breast Biopsy -Clip Mammo; abnormal MRI; check u/s for possible biopsy She presents for MR directed ultrasound with intent to biopsy ultrasoundcorrelates of MRI findings in both breasts. COMPARISON MRI DATED 02/23/2023. TECHNIQUE See below FINDINGS Preliminary ultrasound demonstrates an irregular hypoechoic mass withechogenic periphery in the 2 o'clock position approximately 6 cm from thenipple. This measures 0.6 x 0.9 x 0.7 cm and corresponds to the mass inthe upper outer left breast on the recent MRI. A hypoechoic mass with a focus of calcification in the 11 o'clock positionof the right breast, 4 cm from the nipple measures 0.9 x 0.5 x 1.0 cm.This likely corresponds to an enhancing mass near the central right breaston MRI dated 02/23/2023. There is no additional masses or sonographiccorrelates of the other enhancing masses identified in the right breast onthe prior MRI. The above masses are targeted for biopsy. The left breast biopsy wasperformed phase followed by the right. Left breast biopsy A timeout procedure was performed and the patient's identification wasverified. After discussion of the risks, benefits, and alternatives tothe procedure as well as a detailed explanation of the procedure, thepatient was given the opportunity to ask questions. After her questionswere answered to her satisfaction, informed consent with agreement ofprocedure, site, and position was obtained. The procedure matches theverbalized consent. All necessary equipment was available prior toprocedure. The side of the intended procedure was marked on the skin.Patient denies allergies to medications. She has no known blooddyscrasias and is not taking anticoagulant medication. Using aseptic technique, local anesthesia with buffered 10 cc of 1%lidocaine, and ultrasound guidance, core biopsy was performed of the mass.Passes through the target were documented. A heart shaped marker wasplaced in the mass. Successful clip placement was documented onorthogonal ultrasound images. On initial unilateral post biopsy rightbreast mammogram, the clip does not visualize in the left breast.Additional ultrasound evaluation of the area revealed no marker. A ribbonshaped marker was then placed at the sites of the biopsies. Repeatunilateral left breast mammogram revealed marker to be in appropriateposition. The patient tolerated the procedure well, and there were nocomplications. Specimens were sent to surgical pathology and results arepending. Right breast biopsy Using aseptic technique, local anesthesia with buffered 10 cc of 1%lidocaine, and ultrasound guidance, core biopsy was performed of the mass. Passes through the target were documented. A heart shaped marker wasplaced in the mass. Unilateral right breast mammogram reveals the markerto be in appropriate position. The patient tolerated the procedure well,and there were no complications. Specimens were sent to surgicalpathology and results are pending. Written discharge instructions weregiven to the patient and also the reviewed verbally with her. The patientexpressed understanding of the instructions [facility] IMPRESSION IMPRESSION Successful ultrasound-guided core biopsy of both breasts is performedwith markers placed. No recommendations is pending pathology.Recommendations regarding management of the additional enhancing masses inthe right breast is pending pathology results. 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
--- OUTSIDE RECORDS SUMMARY | 2023-04-19 06:43 | External Medical Summary | Summary of Care ---
Author Name Unknown Organization [facility] Address [address] [place] [address] Phone [phone] Care Team Providers Care Rv Parts And Service Director Name Role Phone Isabel Morales Primary Care Provider +1- [phone] Reason for Visit * Reason Onset Date Comments Information 03/23/2023 Encounter Details Date Type Department Care Team Description 03/23/2023 Telephone General Surgery, [facility] [address] [place] [address] Jayro Merrill MD [address] [facility] [place] [address] Information Allergies Active Allergy Reactions Severity Noted Date Comments Penicillins 02/07/2014 documented as of this encounter (statuses as of 03/23/2023) Medications Medication Sig Dispensed Refills Start Date End Date Status MULTI-VITAMINS PO TABS one daily 0 Active [place] 3 1000 MG CAPS Take by mouth [...] as of this encounter (statuses as of 03/23/2023) Active Problems Problem Noted Date Advanced directives, counseling/discussi on 08/06/2021 Urge incontinence of urine 08/06/2021 Other hyperlipidemia 08/14/2018 Severe obesity (BMI 35.0-39.9) with sridevi rbidity 08/10/2017 HTN, goal below 140/90 11/16/2015 Overview: Per HTN Protocol documented as of this encounter (statuses as of 03/23/2023) Resolved Problems Problem Noted Date Resolved Date Myelopathy 10/23/2018 01/26/2022 Obesity (BMI 35.0-39.9 without comorbidity) 01/201808/10/2017 Class 2 obesity with body ma ss index (BMI) of 35 to 39.9 without comorbidity 12/12/2016 08/10/2017 HTN, goal below 140/80 05/26/2015 6 Overview: Per HTN Protocol Essential hypertension 5 Overview: ICD-10 update of inactive term documented as of this encounter (statuses as of 03/23/2023) Immunizations Name Administration Dates Next Due Pneumococcal [...] Miscellaneous Notes * Telephone Encounter - DARIUSZ Fung - 03/23/2023 10:15 AM EDT Images pushed via PACS and reports faxed. * Telephone Encounter - DARIUSZ Woo - 03/23/2023 8:39 AM EDT Please push images for breast over to [facility]. Patient is having surgery on 04/17/23. documented in this encounter Plan of Treatment Upcoming Encounters Date Type Specialty Care Team Description 04/06/2023 Office Visit General Surgery Jayro Merrill MD [address] [place] [address] 04/17/2023 Office Visit Surgery Jayro Merrill MD [address] [place] [address] 05/15/2023 Office Visit Family Medicine Isabel Morales CRNP [address] [place] [address] 09/15/2023 Office Visit Dermatology Liliya Koch PA-C [address] [place] [address] Health Maintenance Due Date Last Done Comments [...] this encounter Medical Devices Implanted Type Area Percolator Operator Device Identifier Shelf Expiration Date Model / Serial / Lot Clip-03/13/2023 Implanted:Qty: 1 on 03/13/2023 by Michael Silveira DO Clip Left: Breast [employer] 10/30/2024 / / [id number] [id number] Titnm 5/Ct - [id number] Implanted:Qty: 1 on 03/13/2023 at [facility] IR IMAGING CR BARD : PERIPHER[employer]ASC[employer] [id number] / / documented as of this encounter Care Teams Rv Parts And Service Director Relationship Specialty Start Date End Date Isabel Morales CRNP [address] [place] [id number] PCP - General Nurse Practitioner 11/11/22 documented as of this encounter
--- OUTSIDE RECORDS SUMMARY | 2023-04-19 06:43 | External Medical Summary | Summary of Care ---
Author Name Unknown Organization [facility] Address [address] [place] [address] Phone [phone] Care Team Providers Care Supervisor Lime Name Role Phone Isabel Morales Primary Care Provider +1- [phone] Encounter Details Date Type Department Care Team Description 03/13/2023 Hospital Encounter Radiology, [facility] [address] [place] [address] Arrived Allergies Active Allergy Reactions Severity Noted Date Comments Penicillins 02/07/2014 documented as of this encounter (statuses as of 03/14/2023) Medications Medication Sig Dispensed Refills Start Date End Date Status MULTI-VITAMINS PO TABS one daily 0 Active [facility] 3 1000 MG CAPS Take by mouth [...] Merrill MD [address] [place] [address] 03/21/2023 Telemedicine Hematology Oncology Kevan Vickers MD [address] [facility] [place] [address] 05/15/2023 Office Visit Family Medicine Isabel Morales CRNP [address] [place] [address] 09/15/2023 Office Visit Dermatology Liliya Koch PA-C [address] [place] [address] Health Maintenance Due Date Last Done Comments COVID-19 Vaccine (#1) 1945 DTaP,Tdap,and Td Vaccines (1 - Tdap) 1966 Zoster Vaccines (1 of 2) 1997 DXA Scan 03/26/2020 03/26/2013 Depression Screening 01/26/2023 01/26/2022 Influenza Vaccine (FLU shot) (#1) 2023 *NEPHROLOGY REFERRAL DUE TO RESISTANT HTN 03/12/2023 GFR 02/16/2024 02/15/2023, 06/02/2023, 01/26/2022, Additional history exists Albumin/Creatinine Ratio 01/26/2025 [...] this encounter Medical Devices Implanted Type Area Direct Service Worker Device Identifier Shelf Expiration Date Model / Serial / Lot Clip-03/13/2023 Implanted:Qty: 1 on 03/13/2023 by Michael Silveira, Clip Left: Breast [employer] 10/30/2024 / / [id number] documented as of this encounter Procedures Procedure Name Priority Date/Time Associated Diagnosis Comments US GUIDED BREAST BIOPSY RIGHT Routine 03/13/2023 11:40 AM EDT 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 Procedure Note JordanaMichaelDO - 03/13/2023 EXAM US GUIDED BREAST BIOPSY [...] of the instructions and [facility]. IMPRESSION IMPRESSION Successful ultrasound-guided [...] (HCC) documented in this encounter Care Teams Supervisor Lime Relationship Specialty Start Date End Date Isabel Morales CRNP [address] [facility] [place] [id number] PCP - General Nurse Practitioner 11/11/22 documented as of this encounter
--- OUTSIDE RECORDS SUMMARY | 2023-04-19 06:43 | External Medical Summary | Summary of Care ---
Author Name Unknown Organization [facility] Address [address] [place] [address] Phone [phone] Care Team Providers Care Sheet Combining Operator Name Role Phone Isabel Morales Primary Care Provider +1- [phone] Reason for Visit * Reason Onset Date Comments Information 03/13/2023 Encounter Details Date Type Department Care Team Description 03/13/2023 Telephone Radiology, [facility] [address] [place], [place] [id number] [facility] [address] [facility] [address] Information Allergies Active Allergy Reactions Severity Noted Date Comments Penicillins 02/07/2014 documented as of this encounter (statuses as of 03/13/2023) Medications Medication Sig Dispensed Refills Start Date End Date Status MULTI-VITAMINS PO TABS one daily 0 Active [place] 3 1000 MG CAPS Take by mouth [...] as of this encounter (statuses as of 03/13/2023) Active Problems Problem Noted Date Advanced directives, counseling/discussi on 08/06/2021 Urge incontinence of urine 08/06/2021 Other hyperlipidemia 08/14/2018 Severe obesity (BMI 35.0-39.9) with sridevi rbidity 08/10/2017 HTN, goal below 140/90 11/16/2015 Overview: Per HTN Protocol documented as of this encounter (statuses as of 03/13/2023) Resolved Problems Problem Noted Date Resolved Date Myelopathy 10/23/2018 01/26/2022 Obesity (BMI 35.0-39.9 without comorbidity) 01/201808/10/2017 Class 2 obesity with body ma ss index (BMI) of 35 to 39.9 without comorbidity 12/12/2016 08/10/2017 HTN, goal below 140/80 05/26/2015 6 Overview: Per HTN Protocol Essential hypertension 5 Overview: ICD-10 update of inactive term documented as of this encounter (statuses as of 03/13/2023) Immunizations Name Administration Dates Next Due Pneumococcal [...] encounter Miscellaneous Notes * Telephone Encounter - Maggie Mark RDMS - 03/13/2023 11:41 AM EDT Following completion of a bilateral breast ultrasound guided core biopsy, discharge instructions were provided and patient expressed understanding. Specimen was delivered to the lab at 1142 am. documented in this encounter Plan of Treatment Upcoming Encounters Date Type Specialty Care Team Description 03/16/2023 Office Visit General Surgery Jayro Merrill MD [address] [place] [address] 03/21/2023 Telemedicine Hematology Oncology Kevan Vickers MD [address] [facility] [place] [address] 05/15/2023 Office Visit Family Medicine Isabel Morales CRNP [address] [place] [id number] 09/15/2023 Office Visit Dermatology Liliya Koch PA-C [address] [place] [address] Health [...] this encounter Medical Devices Implanted Type Area Water Quality Analyst Device Identifier Shelf Expiration Date Model / Serial / Lot Clip-03/13/2023 Implanted:Qty: 1 on 03/13/2023 by Michael Silveira DO Clip Right: Breast [employer] 10/30/2025 / / [id number] documented as of this encounter Care Teams Sheet Combining Operator Relationship Specialty Start Date End Date Isabel Morales CRNP [address] [facility] [place] [address] PCP - General Nurse Practitioner 11/11/22 documented as of this encounter
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
--- OUTSIDE RECORDS SUMMARY | 2023-04-19 06:43 | External Medical Summary | Summary of Care ---
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)*; Malignant neoplasm of central portion of left female breast, unspecified estrogen receptor status (HCC) Allergies Active Allergy Reactions Severity Noted Date Comments Penicillins 02/07/2014 documented as of this encounter (statuses as of 03/01/2023) Medications Medication Sig Dispensed Refills Start Date End Date Status MULTI-VITAMINS PO TABS one daily 0 Active [place] 3 1000 MG CAPS Take by mouth [...] as of this encounter (statuses as of 03/01/2023) Active Problems Problem Noted Date Advanced directives, counseling/discussi on 08/06/2021 Urge incontinence of urine 08/06/2021 Other hyperlipidemia 08/14/2018 Severe obesity (BMI 35.0-39.9) with sridevi rbidity 08/10/2017 HTN, goal below 140/90 11/16/2015 Overview: Per HTN Protocol documented as of this encounter (statuses as of 03/01/2023) Resolved Problems Problem Noted Date Resolved Date Myelopathy 10/23/2018 01/26/2022 Obesity (BMI 35.0-39.9 without comorbidity) 01/201808/10/2017 Class 2 obesity with body ma ss index (BMI) of 35 to 39.9 without comorbidity 12/12/2016 08/10/2017 HTN, goal below 140/80 05/26/2015 6 Overview: Per HTN Protocol Essential hypertension 5 Overview: ICD-10 update of inactive term documented as of this encounter (statuses as of 03/01/2023) Immunizations Name Administration Dates Next Due Pneumococcal [...] Progress Notes * Jayro Merrill MD - 03/01/2023 2:51 PM EDT [facility] BREAST CLINIC NOTES INDICATION: Left Breast [...] MRI biopsy. She saw hematology/oncology last week. A PET scan is pending for the end of this week. BREAST HISTORY: Mass: No Breast Pain: no [...] BREAST BILATERAL W WO CONTRAST performed on 9/21/23. 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 Films Compared Multiple priors to include most recent previous bilateral mammogram 11/18/2022, ultrasound guided left axilla lymph node biopsy and post clip mammogram 01/26/2023. Technique Multiplanar pre-and post gadolinium enhanced MRI of the breasts. The exam was interpreted in conjunction with AppSurfer software with kinetic and morphologic analysis and [...] with a container labeled with "Chelsie Robertson", "[id number]", "1945" and " left axillary lymph node [...] Out Location Pathologist sign out performed at [facility] ([facility] [place] [address]. FAMILY HISTORY: Family history of breast or [...] Dispense Refill MULTI-VITAMINS PO TABS one daily [place] 3 1000 MG CAPS Take by mouth [...] for this visit. Allergies: Allergies as of 03/01/2023 - Reviewed 03/01/2023 Allergen Reaction Noted Penicillins 02/07/2014 REVIEW OF [...] with breast primary, in the left axilla. Mammogram was negative for any abnormalities in November. The MRI demonstrates an almost 3 cm mass in the left mid breast with associated non-mass enhancement extending over 5 cm. She is set for PET scan at the end of this week. I had a long discussion with her concerning the findingson the MRI. We discussed the need for second-look ultrasound for both breasts and possible ultrasound-guided biopsy of the mass in the suspicious area on the right breast. If the ultrasound fails to note the mass, she will require MRI guided biopsy. We will await the results of the biopsies as wellas the PET scan. We will see her back once these studies are complete and after she sees the oncologists again. We discussed possibility of neoadjuvant chemotherapy prior to surgery. We will see her back in 2 weeks. She will call with any new or concerning symptoms in the meantime. Jayro Merrill MD 03/01/2023 documented in this encounter Nursing Notes * Patria Feliciano LPN - 03/01/2023 1:01 PM EDT Chief Complaint Patient presents with Follow Up F/u after MRI Patient is not having pain. No problems or concerns, just wants to know what going on. documented in this encounter Plan of Treatment Upcoming Encounters Date Type Specialty Care Team Description 03/03/2023 Imaging Radiology 03/09/2023 Office Visit Hematology Oncology [place], Kevan Gonzales MD [address] [place] [address] [place] [address] 03/10/2023 Office Visit Cardiology Kimberlee Rodriguez MD [address] [facility] [place] [phone] 03/13/2023 Appointment Radiology 03/13/2023 Appointment Radiology 03/13/2023 Appointment Radiology 03/16/2023 Office Visit General Surgery Jayro Merrill MD [address] [place] [address] 05/15/2023 Office Visit Family Medicine Isabel Morales CRNP [address] [place] [address] 09/15/2023 Office Visit Dermatology Liliya Koch PA-C [address] 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) Malignant neoplasm of central portion of left female breast, unspecified estrogen receptor status (HCC) Expected: 03/01/2023, Expires: 03/31/2024 US BREAST LIMITED BILATERAL Medical Imaging Routine 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) Expected: 03/01/2023, Expires: 03/31/2024 Health Maintenance Due Date Last Done Comments COVID-19 Vaccine (#1) 1945 DTaP,Tdap,and Td Vaccines (1 - Tdap) 1966 Zoster Vaccines (1 of 2) 1997 DXA Scan 03/26/2020 03/26/2013 Depression Screening 01/26/2023 01/26/2022 Influenza Vaccine (FLU shot) (#1) 2023 GFR 02/16/2024 02/15/2023, 06/0 02/2023, 01/26/2022, Additional [...] documented as of this encounter Medical Devices Not on filedocumented as of this encounter Visit Diagnoses Diagnosis 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
--- OUTSIDE RECORDS SUMMARY | 2023-04-19 06:43 | External Medical Summary | Summary of Care ---
Author Name Unknown Organization [facility] Address [address] [place] [address] Phone [phone] Care Team Providers Care Product Safety Compliance Leader Name Role Phone Isabel Morales Primary Care Provider +1- [phone] Encounter Details Date Type Department Care Team Description 03/13/2023 Hospital Encounter Radiology, [facility] [address] [place] [address] Arrived Allergies Active Allergy Reactions Severity Noted Date Comments Penicillins 02/07/2014 documented as of this encounter (statuses as of 03/14/2023) Medications Medication Sig Dispensed Refills Start Date End Date Status MULTI-VITAMINS PO TABS one daily 0 Active [place] 3 1000 MG CAPS Take by mouth [...] Merrill MD [address] [place] [address] 03/21/2023 Telemedicine Hematology Oncology Kevan Vickers MD [address] [facility] [place] [address] 05/15/2023 [...] this encounter Medical Devices Implanted Type Area Trimming Inspector Device Identifier Shelf Expiration Date Model / Serial / Lot Clip-03/13/2023 Implanted:Qty: 1 on 03/13/2023 by Michael Sivleira, DO [place] Left: Breast [employer] 10/30/2024 / / [id number] documented as of this encounter Procedures Procedure Name Priority Date/Time Associated Diagnosis Comments US BREAST LIMITED BILATERAL Routine 03/13/2023 9:31 AM EDT 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 She has current diagnosis of metastatic carcinoma to the left axilla. She presents for MRI directed ultrasound of both breasts with intent to biopsy any suspicious correlate of enhancing masses identified on MRI dated 02/23/2023. The patient has no documented relevant family history. Films Compared MRI dated 02/23/2023. Findings MRI directed ultrasound evaluation of both breasts is performed. The breast tissue has a homogeneous background echotexture - fibroglandular. Left breast In the 2 o'clock position of the left breast approximately 6 cm from the nipple, an irregular, hypoechoic, shadowing mass with echogenic periphery and demonstrable internal vascularity measures 0.6 x 0.9 x 0.7 cm. This corresponds to the enhancing mass in the upper-outer left breast on the prior MRI. This is targeted for biopsy. Right breast In the 11 o'clock position approximately 4 cm from the nipple, a hypoechoic mass with a focus of calcification measures 0.9 x 0.5 x 1.0 cm. This is thought to correlate with an enhancing mass in the near central right breast on prior MRI. This is also targeted for biopsy. No sonographic correlate of additional enhancing masses on the previous MRI is identified. Impression Bilateral Suspicious masses in the 2:00 left breast, and 11:00 right breast correlate with suspicious MRI findings. No additional sonographic correlate of additional masses in the right breast on the prior MRI BI-RADS Category: 4 - Suspicious. Recommendation Ultrasound guided core needle biopsies of the suspicious masses in both breasts have been performed. The procedure notes were dictated separately. Additional recommendations pending pathology results. These recommendations will be provided in addendum to the biopsy report when the pathology results become available. This examination was performed at [facility] US IMAGING, [address] [place] [address]. 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
--- OUTSIDE RECORDS SUMMARY | 2023-04-19 06:43 | External Medical Summary | Summary of Care ---
Author Name Unknown Organization [facility] Address [address] [place] [address] Phone [phone] Care Team Providers Care Barman Name Role Phone Isabel Morales Primary Care Provider +1- [phone] Encounter Details Date Type Department Care Team Description 03/22/2023 Telephone General Surgery, [facility] [address] [place] [id number] Jayro Merrill MD [address] [employer] [place] [address] Allergies Active Allergy Reactions Severity Noted Date Comments Penicillins 02/07/2014 documented as of this encounter (statuses as of 03/22/2023) Medications Medication Sig Dispensed Refills Start Date End Date Status MULTI-VITAMINS PO TABS one daily 0 Active [place] 3 1000 MG CAPS Take by mouth [...] as of this encounter (statuses as of 03/22/2023) Active Problems Problem Noted Date Advanced directives, counseling/discussi on 08/06/2021 Urge incontinence of urine 08/06/2021 Other hyperlipidemia 08/14/2018 Severe obesity (BMI 35.0-39.9) with sridevi rbidity 08/10/2017 HTN, goal below 140/90 11/16/2015 Overview: Per HTN Protocol documented as of this encounter (statuses as of 03/22/2023) Resolved Problems Problem Noted Date Resolved Date Myelopathy 10/23/2018 01/26/2022 Obesity (BMI 35.0-39.9 without comorbidity) 01/201808/10/2017 Class 2 obesity with body ma ss index (BMI) of 35 to 39.9 without comorbidity 12/12/2016 08/10/2017 HTN, goal below 140/80 05/26/2015 6 Overview: Per HTN Protocol Essential hypertension 5 Overview: ICD-10 update of inactive term documented as of this encounter (statuses as of 03/22/2023) Immunizations Name Administration Dates Next Due Pneumococcal [...] encounter Miscellaneous Notes * Telephone Encounter - Jayro Merrill MD - 03/22/2023 3:33 PM EDT I spoke with Mrs. Robertson by phone, as we had to cancel her telehealth appointment yesterday. I reviewed the biopsy results from both the left and the right breast. The right breast demonstrated a benign fibroadenoma. Recommendation for six-month follow-up MRI. We discussed surgical options. All her questions were answered. As of now, she would like to proceed with just a left breast mastectomy, andnot proceed with contralateral mastectomy. We discussed left breast mastectomy with sentinel lymph node biopsy and preop localization of the previously biopsied left axillary lymph node. We will havethis set up at the earliest possible convenience at the hospital. She will call with any new or concerning symptoms in the meantime. documented in this encounter Plan of Treatment Upcoming Encounters Date Type Specialty Care Team Description 05/15/2023 Office Visit Family Medicine Isabel Morales CRNP [address] [place] [address] 09/15/2023 Office Visit Dermatology Liliya Koch PA-C [address] [place] [address] [place] [address] Health Maintenance Due Date Last Done Comments [...] this encounter Medical Devices Implanted Type Area Lye Machine Operator Device Identifier Shelf Expiration Date Model / Serial / Lot Clip-03/13/2023 Implanted:Qty: 1 on 03/13/2023 by Michael Silveira DO Clip Left: Breast [employer] 10/30/2024 / / [id number] Titnm 5/Ct - [id number] Implanted:Qty: 1 on 03/13/2023 at [facility] CR BARD : [employer] [id number] / / documented as of this encounter Care Teams Barman Relationship Specialty Start Date End Date Isabel Morales CRNP [facility] [place] [address] PCP - General Nurse Practitioner 11/11/22 documented as of this encounter
--- OUTSIDE RECORDS SUMMARY | 2023-04-19 06:43 | External Medical Summary | Summary of Care ---
Author Name Unknown Organization [facility] Address [address] [place] [address] Phone [phone] Care Team Providers Care Steel Grinder Name Role Phone Isabel Morales Primary Care Provider +1- [phone] Reason for Visit * Reason Onset Date Comments Test Results 03/06/2023 Unexpected or In determinate Result Encounter Details Date Type Department Care Team Description 03/06/2023 Telephone Hematology/Oncology, [facility] [address] [place] [address] Kevan Vickers MD [address] [place] [address] Test Results (Unexpected or Indeterminate ... Allergies Active Allergy Reactions Severity Noted Date Comments Penicillins 02/07/2014 documented as of this encounter (statuses as of 03/06/2023) Medications Medication Sig Dispensed Refills Start Date End Date Status MULTI-VITAMINS PO TABS one daily 0 Active [place] 3 1000 MG CAPS Take by mouth [...] as of this encounter (statuses as of 03/06/2023) Active Problems Problem Noted Date Advanced directives, counseling/discussi on 08/06/2021 Urge incontinence of urine 08/06/2021 Other hyperlipidemia 08/14/2018 Severe obesity (BMI 35.0-39.9) with sridevi rbidity 08/10/2017 HTN, goal below 140/90 11/16/2015 Overview: Per HTN Protocol documented as of this encounter (statuses as of 03/06/2023) Resolved Problems Problem Noted Date Resolved Date Myelopathy 10/23/2018 01/26/2022 Obesity (BMI 35.0-39.9 without comorbidity) 01/201808/10/2017 Class 2 obesity with body ma ss index (BMI) of 35 to 39.9 without comorbidity 12/12/2016 08/10/2017 HTN, goal below 140/80 05/26/2015 6 Overview: Per HTN Protocol Essential hypertension 5 Overview: ICD-10 update of inactive term documented as of this encounter (statuses as of 03/06/2023) Immunizations Name Administration Dates Next Due Pneumococcal [...] Miscellaneous Notes * Telephone Encounter - DARIUSZ Richey - 03/06/2023 1:01 PM EDT Hello- The radiologist discovered an unexpected or indeterminate finding on Chelsie Ailyn ([id number]) and asks that you review the following report. Study Type: PET CT SKULL BASE TO MID-THIGH Date of Study: 03/03/2023 IMPRESSION 1. The biopsy-proven left axillary lymph node has activity below background blood pool activity. This would indicate that evaluation for the primary lesion or other sites of metastatic disease is markedly limited by FDG PET. 2. There is a small nodule with minimally increased activity in the lateral left breast, approximate 2 o'clock position, as detailed above. This activity is barely above background glandular activityand is nonspecific. Correlation with prior mammographic imaging would be recommended. 3. No other significant abnormality identified to suggest a metastatic process. 4. Multiple thyroid nodules without appreciable activity. Ultrasound follow-up could be performed as clinically desired to evaluate morphology. Please respond to this encounter to acknowledge receipt of this message and take responsibility to ensure this report is reviewed. Thank you, DARIUSZ Richey Client Service Rep [facility] documented in this encounter Plan of Treatment Upcoming Encounters Date Type Specialty Care Team Description 03/09/2023 Office Visit Hematology Oncology Kevan Vickers MD [address] [place] [address] [place] [id number] 03/13/2023 Appointment Radiology 03/13/2023 Appointment Radiology 03/13/2023 Appointment Radiology 03/16/2023 Office Visit General Surgery Jayro Merrill MD [address] [place] [address] 05/15/2023 Office Visit Family Medicine Isabel Moraels CRNP [address] [place] [address] 09/15/2023 Office Visit Dermatology Liliya Koch PA-C [address] [place] [address] Health Maintenance Due Date Last Done Comments COVID-19 Vaccine (#1) 1945 DTaP,Tdap,and Td Vaccines (1 - Tdap) 1966 Zoster Vaccines (1 of 2) 1997 DXA Scan 03/26/2020 03/26/2013 Depression Screening 01/26/2023 01/26/2022 Influenza Vaccine (FLU shot) (#1) 2023 GFR 02/16/2024 02/15/2023, 02/2023, 01/26/2022, Additional history exists Albumin/Creatinine Ratio [...] Not on filedocumented as of this encounter Care Teams Steel Grinder Relationship Specialty Start Date End Date Isabel Morales CRNP [address] [facility] [place] [address] PCP - General Nurse Practitioner 11/11/22 documented as of this encounter
--- OUTSIDE RECORDS SUMMARY | 2023-04-19 06:43 | External Medical Summary | Summary of Care ---
Author Name Unknown Organization [facility] Address [address] [place] [address] Phone [phone] Care Team Providers Care City Marshal Name Role Phone Isabel Morales Primary Care Provider +1- [phone] Encounter Details Date Type Department Care Team Description 03/13/2023 Hospital Encounter Radiology, [facility] [address] [place] [address] Arrived Allergies Active Allergy Reactions Severity Noted Date Comments Penicillins 02/07/2014 documented as of this encounter (statuses as of 03/14/2023) Medications Medication Sig Dispensed Refills Start Date End Date Status MULTI-VITAMINS PO TABS one daily 0 Active [place] 3 1000 MG CAPS Take by mouth [...] Merrill MD [address] [place] [address] 03/21/2023 Telemedicine Hematology Oncology [facility] [address] [facility] [address] 05/15/2023 Office Visit Family Medicine Isabel [...] TO RESISTANT HTN 03/12/2023 GFR 02/16/2024 02/15/2023, 0602/2023, 01/26/2022, Additional history exists Albumin/Creatinine Ratio 01/26/2025 [...] this encounter Medical Devices Implanted Type Area Optical Instrument Inspector Device Identifier Shelf Expiration Date Model / Serial / Lot Clip-03/13/2023 Implanted:Qty: 1 on 03/13/2023 by Michael Silveira, Clip Left: Breast [employer] 10/30/2024 / / [id number] documented as of this encounter Procedures Procedure Name Priority Date/Time Associated Diagnosis Comments MAMMOGRAM POST BIOPSY CLIP PLACEMENT Routine 03/13/2023 11:43 AM EDT 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 Procedure Note Jordana MichaelDO - 03/13/2023 EXAM US GUIDED BREAST BIOPSY [...] [facility] the [facility]. IMPRESSION IMPRESSION Successful ultrasound-guided core biopsy of both breasts is performedwith markers placed. No recommendations is pending pathology.Recommendations regarding management of the additional enhancing masses inthe right breast is pending pathology results. 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
--- OUTSIDE RECORDS SUMMARY | 2023-04-19 06:43 | External Medical Summary | Summary of Care ---
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) Procedures MRI BREAST BILATERAL W WO CONTRAST Jayro Merrill MD [address] [place] [address] Referral ID Status Reason Start Date Expiration Date V isits Requested Visits Authorized [id number] Authorized 02/09/2023 999 999 Reason for Visit * Precert (Within 10 days (routine)) - Authorized Specialty Diagnoses / Procedures Referred By Contarnoldo almazan Referred To Contact Radiology Diagnoses 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) Procedures MRI BREAST BILATERAL W WO CONTRAST Jayro Merrill MD [address] [place] [address] Referral ID Status Reason Start Date Expiration Date V isits Requested Visits Authorized [id number] Authorized 02/09/2023 999 999 Encounter Details Date Type Department Care Team Description 02/23/2023 Hospital Encounter Radiology, [address] [phone] Arrived Allergies Active Allergy Reactions Severity Noted Date Comments Penicillins 02/07/2014 documented as of this encounter (statuses as of 02/24/2023) Medications Medication Sig Dispensed Refills Start Date End Date Status MULTI-VITAMINS PO TABS one daily 0 Active [place] 3 1000 MG CAPS Take by mouth [...] the morning. 90 Tablet 3 02/17/2023 Active Hospital, Clinic, or Other Facility Administered Medication Ordered Dose Route Frequency Start Date End Date Status sodium chloride 0.9 % flush/inj 10 mL 10 mL IV PUSH ONCE 02/23/2023 02/23/2023 Ended documented as of this encounter (statuses as of 02/24/2023) Active Problems Problem Noted Date Advanced directives, counseling/discussi on 08/06/2021 Urge incontinence of urine 08/06/2021 Other hyperlipidemia 08/14/2018 Severe obesity (BMI 35.0-39.9) with sridevi rbidity 08/10/2017 HTN, goal below 140/90 11/16/2015 Overview: Per HTN Protocol documented as of this encounter (statuses as of 02/24/2023) Resolved Problems Problem Noted Date Resolved Date Myelopathy 10/23/2018 01/26/2022 Obesity (BMI 35.0-39.9 without comorbidity) 01/201808/10/2017 Class 2 obesity with body ma ss index (BMI) of 35 to 39.9 without comorbidity 12/12/2016 08/10/2017 HTN, goal below 140/80 05/26/2015 6 Overview: Per HTN Protocol Essential hypertension 5 Overview: ICD-10 update of inactive term documented as of this encounter (statuses as of 02/24/2023) Immunizations Name Administration Dates Next Due Pneumococcal [...] Encounters Date Type Specialty Care Team Description 03/01/2023 Office Visit General Surgery Jayro Merrill MD [address] [place] [address] 03/03/2023 Imaging Radiology 03/09/2023 Office Visit Hematology Oncology Kevan Vickers MD [address] [place] [address] 03/10/2023 Office Visit Cardiology Kimberlee Rodriguez MD [address] 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) 1 Occurrences starting 02/23/2023 until 02/23/2023 Health Maintenance Due Date Last Done Comments [...] lymph node (HCC) documented in this encounter Administered Medications Inactive Administered Medications - up to 3 most recent administrations Medication Order MAR Action Action Date Dose Rate Site gadobutrol (Gadavist) inj 9 mL 9 mL (rounded from 9.04 mL = 0.1 mL/kg 90.4 kg), Intravenous, ONCE, On Madhavi 02/23/23 at 0735, For 1 dose, Radiology Medication Routing (Non-IR) Given 02/23/2023 8:02 AM EDT 9 mL Forearm Left sodium chloride 0.9 % flush/inj 10 mL 10 mL, IV Push, ONCE, On Madhavi 02/23/23 at 0735, For 1 dose, Do not flush if lock, PICC, or central line not in place; IV infusing or unable to flush., Radiology Medication Routing (Non-IR) Given 02/23/2023 7:35 AM EDT 10 mL Forearm Left documented in this encounter Care Teams Master Electrician Relationship Specialty Start Date End Date Isabel Morales CRNP [address] [facility] [place] [address] PCP - General Nurse Practitioner 11/11/22 documented as of this encounter
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
--- OUTSIDE RECORDS SUMMARY | 2023-04-19 06:43 | External Medical Summary | Summary of Care ---
Author Name Unknown Organization [facility] Address [address] [place] [address] Phone [phone] Care Team Providers Care Commercial Analyst Name Role Phone Isabel Morales Primary Care Provider +1- [phone] Reason for Visit * Reason Onset Date Comments Information 03/23/2023 Encounter Details Date Type Department Care Team Description 03/23/2023 Telephone General Surgery, [facility] [address] [place] [address] [facility]ill MD [address] [facility] [place] [address] Information Allergies Active Allergy Reactions Severity Noted Date Comments Penicillins 02/07/2014 documented as of this encounter (statuses as of 03/23/2023) Medications Medication Sig Dispensed Refills Start Date End Date Status MULTI-VITAMINS PO TABS one daily 0 Active [place] 3 1000 MG CAPS Take by mouth [...] Miscellaneous Notes * Telephone Encounter - DARIUSZ Woo - 03/23/2023 8:39 AM EDT Please push images for breast over to [facility] [place]. Patient is having surgery on 04/17/23. documented in this encounter Plan of Treatment Upcoming Encounters Date Type Specialty Care Team Description 04/17/2023 Office Visit Surgery Jayro Merrill MD [address] [place] [address] 05/15/2023 Office Visit Family Medicine Isabel Morales CRNP [address] [place] [address] 09/15/2023 Office Visit Dermatology Liliya Koch PA-C [address] [facility] [address] [place] [address] Health Maintenance Due Date Last Done Comments [...] this encounter Medical Devices Implanted Type Area Assistant Superintendent Device Identifier Shelf Expiration Date Model / Serial / Lot Clip-03/13/2023 Implanted:Qty: 1 on 03/13/2023 by Michael Silveira DO Clip Left: Breast [employer] 10/30/2024 / / [id number] Titnm 5/Ct - [id number] Implanted:Qty: 1 on 03/13/2023 at [facility] IR IMAGING CR BARD : [employer] [id number] / / documented as of this encounter Care Teams Commercial Analyst Relationship Specialty Start Date End Date Isabel Morales CRNP [address] [facility] [place] [id number] PCP - General Nurse Practitioner 11/11/22 documented as of this encounter
--- OUTSIDE RECORDS SUMMARY | 2023-04-19 06:43 | External Medical Summary | Summary of Care ---
Author Name Unknown Organization [facility] Address [address] [place] [address] Phone [phone] Care Team Providers Care Rural Health Consultant Name Role Phone Isabel Morales Primary Care Provider +1- [phone] Reason for Visit * Reason Onset Date Comments Scheduling 03/21/2023 Dispo from 03/21 Encounter Details Date Type Department Care Team Description 03/21/2023 Telephone Hematology/Oncology, [facility] [address] [place] [address] Kevan Vickers MD [address] [place] [address] Scheduling (Dispo from 03/21) Allergies Active Allergy Reactions Severity Noted Date Comments Penicillins 02/07/2014 documented as of this encounter (statuses as of 03/21/2023) Medications Medication Sig Dispensed Refills Start Date End Date Status MULTI-VITAMINS PO TABS one daily 0 Active [place] 3 1000 MG CAPS Take by mouth [...] as of this encounter (statuses as of 03/21/2023) Active Problems Problem Noted Date Advanced directives, counseling/discussi on 08/06/2021 Urge incontinence of urine 08/06/2021 Other hyperlipidemia 08/14/2018 Severe obesity (BMI 35.0-39.9) with sridevi rbidity 08/10/2017 HTN, goal below 140/90 11/16/2015 Overview: Per HTN Protocol documented as of this encounter (statuses as of 03/21/2023) Resolved Problems Problem Noted Date Resolved Date Myelopathy 10/23/2018 01/26/2022 Obesity (BMI 35.0-39.9 without comorbidity) 01/201808/10/2017 Class 2 obesity with body ma ss index (BMI) of 35 to 39.9 without comorbidity 12/12/2016 08/10/2017 HTN, goal below 140/80 05/26/2015 6 Overview: Per HTN Protocol Essential hypertension 5 Overview: ICD-10 update of inactive term documented as of this encounter (statuses as of 03/21/2023) Immunizations Name Administration Dates Next Due Pneumococcal [...] Miscellaneous Notes * Telephone Encounter - DARIUSZ Vu - 03/21/2023 3:28 PM EDT Called pt to scheduled for Office visit 2 months with CBC, diff, CMP But pt stated it needed to be after her surgery which she does not have a date for just yet. Sees Gen Surg on 04/06 and then we can call back after that appt to schedule return fro [place]. documented in this encounter Plan of Treatment Upcoming Encounters Date Type Specialty Care Team Description 04/06/2023 Office Visit General Surgery Jayro Merrill MD [address] [place] [address] 05/15/2023 Office Visit Family Medicine Isabel Morales CRNP [address] [place] [address] 09/15/2023 Office Visit Dermatology Liliya Koch PA-C [address] [place] [address] [place] [address] Health Maintenance Due Date Last Done Comments [...] this encounter Medical Devices Implanted Type Area Digital Imager Device Identifier Shelf Expiration Date Model / Serial / Lot Clip-03/13/2023 Implanted:Qty: 1 on 03/13/2023 by Michael Silveira DO Clip Left: Breast [employer] 10/30/2024 / / [id number] Titnm 5/Ct - [id number] Implanted:Qty: 1 on 03/13/2023 at [facility] IR IMAGING CR BARD : [employer] [id number] / / documented as of this encounter Care Teams Rural Health Consultant Relationship Specialty Start Date End Date Isabel Morales CRNP [address] [facility] [place] [address] PCP - General Nurse Practitioner 11/11/22 documented as of this encounter
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
--- OUTSIDE RECORDS SUMMARY | 2023-04-19 06:44 | External Medical Summary | Summary of Care ---
Author Name Unknown Organization [facility] Address [address] [place] [address] Phone [phone] Care Team Providers Care Adhesive Bandage Machine Operator Name Role Phone Isabel Morales Primary Care Provider +1- [phone] Reason for Referral * Evaluate & Treat - Unlimited Visits (Within 10 days (routine)) - Authorized Specialty Diagnoses / Procedures Referred By Fer almazan Referred To Contact Hematology/Oncology / Hematology Oncology Diagnoses Metastatic carcinoma (HCC) Abnormal breast biopsy Isabel Morales CRNP [address] [place] [address] Referral ID Status Reason Start Date Expiration Date Visits Requested Visits Authorized [id number] Authorized Specialty Services Required 02/01/2023 999 999 Question Answer Referral Priority Within 10 days (routine) Reason for Referral Malignant Oncology (Solid Organ Cancer) * Evaluate & Treat - Unlimited Visits (Within 10 days (routine)) - Authorized Specialty Diagnoses / Procedures Referred By Fer almazan Referred To Contact Breast Clinic Multi Specialty / Surgical Oncology Diagnoses Abnormal mammogram Metastatic carcinoma (HCC) Abnormal breast biopsy Isabel Morales CRNP [address] [place] [address] Referral ID Status Reason Start Date Expiration Date Visits Requested Visits Authorized [id number] Authorized Specialty Services Required 02/01/2023 999 999 Question Answer Referral Priority Within 10 days (routine) What is the reason to be seen? Breast Cancer Is there suspicion of Breast Cancer? Yes Comments Biopsy positive for carcinoma Reason for Visit * Reason Onset Date Comments Test Results Biopsy 02/01/2023 Referral 02/01/2023 Metastatic carci noma Encounter Details Date Type Department Care Team Description 02/01/2023 Telephone [facility] [place] [address] [place] [address] Isabel Morales CRNP [address] [facility] [place] [address] Test Results Biopsy; Referral (Metastatic ... Allergies Active Allergy Reactions Severity Noted Date Comments Penicillins 02/07/2014 documented as of this encounter (statuses as of 02/09/2023) Medications Medication Sig Dispensed Refills Start Date End Date Status MULTI-VITAMINS PO TABS one daily 0 Active [place] 3 1000 MG CAPS Take by mouth [...] as of this encounter (statuses as of 02/09/2023) Active Problems Problem Noted Date Advanced directives, counseling/discussi on 08/06/2021 Urge incontinence of urine 08/06/2021 Other hyperlipidemia 08/14/2018 Severe obesity (BMI 35.0-39.9) with sridevi rbidity 08/10/2017 HTN, goal below 140/90 11/16/2015 Overview: Per HTN Protocol documented as of this encounter (statuses as of 02/09/2023) Resolved Problems Problem Noted Date Resolved Date Myelopathy 10/23/2018 01/26/2022 Obesity (BMI 35.0-39.9 without comorbidity) 01/201808/10/2017 Class 2 obesity with body ma ss index (BMI) of 35 to 39.9 without comorbidity 12/12/2016 08/10/2017 HTN, goal below 140/80 05/26/2015 6 Overview: Per HTN Protocol Essential hypertension 5 Overview: ICD-10 update of inactive term documented as of this encounter (statuses as of 02/09/2023) Immunizations Name Administration Dates Next Due Pneumococcal [...] Notes * Telephone Encounter - DARIUSZ Vu 02/09/2023 2:29 PM EDT PT scheduled to see Dr. Kevan Vickers on 02/15. * Telephone Encounter - SWATHI Strong - 02/01/2023 4:19 PM EDT Phone call to patient to inform her of biopsy results, all questions answered. She is agreeable to referral to breast center and oncology. Referrals ordered. She is expecting a call for scheduling. Thank you documented in this encounter Plan of Treatment Upcoming Encounters Date Type Specialty Care Team Description 02/15/2023 Office Visit Hematology Oncology Kevan Vickers MD [address] [place] [phone] 02/23/2023 Appointment Radiology 03/01/2023 Office Visit General Surgery Jayro Merrill MD [address] [place] [address] 03/10/2023 Office Visit Cardiology Kimberlee Rodriguez MD [address] [place] [address] 05/15/2023 Office Visit Family Medicine Isabel Morales CRNP [address] [place] [address] 09/15/2023 Office Visit Dermatology Liliya Koch PA-C [address] [place] [address] Scheduled Referrals Name Type Priority Associated Diagnoses Orde r Schedule BREAST CLINIC REFERRAL OP Referral Within 10 days (routine) Abnormal mammogram Metastatic carcinoma (HCC) Abnormal breast biopsy Ordered: 02/01/2023 HEMATOLOGY/ONCOLOGY REFERRAL OP Referral Within 10 days (routine) Metastatic carcinoma (HCC) Abnormal breast biopsy Ordered: 02/01/2023 Health Maintenance Due Date Last Done Comments COVID-19 Vaccine (#1) 1945 DTaP,Tdap,and Td Vaccines (1 - Tdap) 1966 Zoster Vaccines (1 of 2) 1997 DXA Scan 03/26/2020 03/26/2013 Depression Screening 01/26/2023 01/26/2022 Influenza Vaccine (FLU shot) (#1) 2023 GFR 11/12/2023 11/11/2022, 01/04, 12/03/2020, Additional history exists Albumin/Creatinine Ratio 01/26/2025 01/26/2022, [...] as of this encounter Visit Diagnoses Diagnosis Abnormal mammogram- Primary Abnormal mammogram, unspecified Metastatic carcinoma (HCC) Other malignant neoplasm without specification of site Abnormal breast biopsy Other nonspecific abnormal histological findings documented in this encounter Care Teams Adhesive Bandage Machine Operator Relationship Specialty Start Date End Date Isabel Morales CRNP [address] [facility] [place] [address] PCP - General Nurse Practitioner 11/11/22 documented as of this encounter
--- OUTSIDE RECORDS SUMMARY | 2023-04-19 06:44 | External Medical Summary ---
Author Name Unknown Address Unknown Organization [id number]:[facility] [place] [address] [place] [address] Laboratory Report Ordering Provider Test Date Status ROZINA WISE 02/15/2023 14:07:48 Final Observation Date Value Abnormality Reference (Units ) Status Iron 02/15/2023 14:07:48 94 33-151 (ug /dL) Final Iron-binding capacity 02/15/2023 14:07:48 283 250-425 (ug/dL) Final Transferrin Sat % 02/15/2023 14:07:48 33 15 -55 (%) Final Performing Location LABORATORY C - [address] [place] [address]
--- OUTSIDE RECORDS SUMMARY | 2023-04-19 06:44 | External Medical Summary ---
Author Name Unknown Address Unknown Organization [id number]:LABORATORY [facility] - [address] [place] [address] [address] [place] [address] Laboratory Report Ordering Provider Test Date Status ROZINA WISE 02/15/2023 14:07:48 Final Observation Date Value Abnormality Reference (Units ) Status WBC, Total 02/15/2023 14:07:48 5.44 4.00-10.80 (K/uL) Final RBC 02/15/2023 14:07:48 4.69 3.85-5.15 (M/uL) Final Hemoglobin 02/15/2023 14:07:48 14.5 12.0-15.3 (g/dL) Final HCT 02/15/2023 14:07:48 43.1 36.0-45.2 (%) Final MCV 02/15/2023 14:07:48 91.9 81.5-97.5 (fL) Final MCH 02/15/2023 14:07:48 30.9 27.0-34.0 (pg) Final MCHC 02/15/2023 14:07:48 33.6 32.0-36.0 (g/dL) Final RDW 02/15/2023 14:07:48 14.0 11.5-15.5 (%) Final Platelets 02/15/2023 14:07:48 219 140-400 (K/uL) Final MPV 02/15/2023 14:07:48 10.3 6.6-11.1 (fL) Final Nucleated erythrocytes/100 leukocytes [Ratio] in Blood by Automated count 02/15/2023 14:07:48 0 <=0 (/100 WBCs) Final Performing Location LABORATORY [facility] - [address] [facility] [address] [place] [address]
--- OUTSIDE RECORDS SUMMARY | 2023-04-19 06:44 | External Medical Summary | Summary of Care ---
Author Name Unknown Organization [facility] Address [address] [place] [address] Phone [phone] Care Team Providers Care Manager Utilities Name Role Phone Isabel Morales Primary Care Provider +1- [phone] Reason for Visit * Reason Onset Date Comments Medication Refill 02/17/2023 Encounter Details Date Type Department Care Team Description 02/17/2023 Refill Urogynecology [facility] [address] [place] [address] Zay Chanel MD [address] [place] [address] Allergies Active Allergy Reactions Severity Noted Date Comments Penicillins 02/07/2014 documented as of this encounter (statuses as of 02/17/2023) Medications Medication Sig Dispensed Refills Start Date End Date Status MULTI-VITAMINS PO TABS one daily 0 Active [place] 3 1000 MG CAPS Take by mouth 1 Tablet daily . 0 Active Atorvastatin Calcium 20 MG Oral Tablet (Lipitor) Take by mouth 1 Tablet in the morning. 34 Tablet 11 02/10/2022 Active Estradiol 0.1 MG/GM Vaginal Cream (Estrace) Administer 0.5 g into the vagina once a day Monday and only. At bedtime 42.5 g 3 09/29/2022 Active hydroCHLOROthiaz lisa 12.5 MG Oral Capsule (Hydrodiuril)Ind ications:Physica l exam, annual Take 1 Capsule by mouth in the morning. 90 Capsule 1 11/07/2022 Active Metoprolol Tartrate 50 MG Oral Tablet (Lopressor)Indic ations:Physical exam, annual Take 1 Tablet by mouth in the morning and 1 Tablet before bedtime. 180 Tablet 1 11/08/2022 Active amLODIPine Besylate 10 MG Oral Tablet (Norvasc)Indicat ions:Physical exam, annual Take 1 Tablet by mouth in the morning. 90 Tablet 1 11/08/2022 Active Losartan Potassium 50 MG Oral Tablet (Cozaar)Indicati ons:Essential hypertension, benign Take 1 Tablet by mouth in the morning. 90 Tablet 1 11/08/2022 Active Solifenacin Succinate 5 MG Oral Tablet (VESIcare) Take 1 Tablet by mouth in the morning. 90 Tablet 3 02/17/2023 Active Solifenacin Succinate 5 MG Oral Tablet (VESIcare) Take 1 Tablet by mouth in the morning. 90 Tablet 3 06/16/2022 02/17/2023 Discontinue d(Refill) documented as of this encounter (statuses as of 02/17/2023) Active Problems Problem Noted Date Advanced directives, counseling/discussi on 08/06/2021 Urge incontinence of urine 08/06/2021 Other hyperlipidemia 08/14/2018 Severe obesity (BMI 35.0-39.9) with sridevi rbidity 08/10/2017 HTN, goal below 140/90 11/16/2015 Overview: Per HTN Protocol documented as of this encounter (statuses as of 02/17/2023) Resolved Problems Problem Noted Date Resolved Date Myelopathy 10/23/2018 01/26/2022 Obesity (BMI 35.0-39.9 without comorbidity) 01/201808/10/2017 Class 2 obesity with body ma ss index (BMI) of 35 to 39.9 without comorbidity 12/12/2016 08/10/2017 HTN, goal below 140/80 05/26/2015 6 Overview: Per HTN Protocol Essential hypertension 5 Overview: ICD-10 update of inactive term documented as of this encounter (statuses as of 02/17/2023) Immunizations Name Administration Dates Next Due Pneumococcal [...] encounter Miscellaneous Notes * Telephone Encounter - Zay Chanel MD - 02/17/2023 1:50 PM EDTSigned Prescriptions: Disp Refills Solifenacin Succinate 5 MG Oral Tablet (VE*90 Tab*3 Sig: Take 1 Tablet by mouth in the morning. Authorizing Provider: ZAY CHANEL * Telephone Encounter - DARIUSZ Tan - 02/17/2023 1:35 PM EDT Received call from patient that needs refill from [facility] SOLIFENACIN Patient last seen 09/29/2022 (in office), Visit date not found (telemedicine) Future appt Visit date not found documented in this encounter Plan of Treatment Upcoming Encounters Date Type Specialty Care Team Description 02/23/2023 Appointment Radiology 03/01/2023 Office Visit General Surgery Jayro Merrill MD [address] [place] [address] 03/03/2023 Appointment Radiology 03/09/2023 Office Visit Hematology Oncology Kevan Vickers MD [address] [facility] [place] [phone] 03/10/2023 Office Visit Cardiology Kimberlee Rodriguez MD [address] [facility] [place] [phone] 05/15/2023 Office Visit Family Medicine Isabel Morales CRNP [address] [place], [place] [phone] 09/15/2023 Office Visit Dermatology Liliya oKch PA-C [address] [facility] [address] [place], [place] [phone] Health Maintenance Due Date Last Done Comments COVID-19 Vaccine (#1) 1945 DTaP,Tdap,and Td Vaccines (1 - Tdap) 1966 Zoster Vaccines (1 of 2) 1997 DXA Scan 03/26/2020 03/26/2013 Depression Screening 01/26/2023 01/26/2022 Influenza Vaccine (FLU shot) (#1) 2023 GFR 02/16/2024 02/15/2023, 06/02/2023, 01/26/2022, Additional history [...] filedocumented as of this encounter Care Teams Manager Utilities Relationship Specialty Start Date End Date Isabel Morales CRNP 21 [facility] [place] [address] PCP - General Nurse Practitioner 11/11/22 documented as of this encounter
--- OUTSIDE RECORDS SUMMARY | 2023-04-19 06:44 | External Medical Summary ---
Author Name Unknown Address Unknown Organization K01:[facility] [place] [address] [place] [address] Laboratory Report Ordering Provider Test Date Status CHERELLE BRUNER 02/15/2023 14:07:48 Final Observation Date Value Abnormality Reference (Units ) Status MYCODE SPECIMEN-LAV 02/15/2023 14:07:48 Freezing of extracted DNA, whole blood and/or serum. Final Performing Location LABORATORY C - [address] [place] [address]
--- OUTSIDE RECORDS SUMMARY | 2023-04-19 06:44 | External Medical Summary ---
Author Name Unknown Address Unknown Organization K01:[facility] [place] - [address] [facility] [place] [address] Laboratory Report Ordering Provider Test Date Status ROZINA WISE 02/15/2023 14:07:48 Final Observation Date Value Abnormality Reference (Units ) Status Ferritin 02/15/2023 14:07:48 203 Above high normal 13 -150 (ng/mL) Final Postmenopausal women have hi gher ferritin levels than pre-menopausal women. The above reference interval is based on pre-menopausal women. Performing Location LABORATORY C - [address] [place] [address]
--- OUTSIDE RECORDS SUMMARY | 2023-04-19 06:44 | External Medical Summary | Summary of Care ---
Author Name Unknown Organization [facility] Address [address] [place] [address] Phone [phone] Care Team Providers Care Supervisor Malted Milk Name Role Phone Isabel Morales Primary Care Provider +1- [phone] Reason for Visit * Reason Comments Outpatient Testing Encounter Details Date Type Department Care Team Description 02/15/2023 Laboratory Laboratory, [facility] [address] [place] [address] 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); Secondary malignant neoplasm of breast (HCC); Other abnormal tumor markers Allergies Active Allergy Reactions Severity Noted Date Comments Penicillins 02/07/2014 documented as of this encounter (statuses as of 02/15/2023) Medications Medication Sig Dispensed Refills Start Date End Date Status MULTI-VITAMINS PO TABS one daily 0 Active [place] 3 1000 MG CAPS Take by mouth [...] as of this encounter (statuses as of 02/15/2023) Active Problems Problem Noted Date Advanced directives, counseling/discussi on 08/06/2021 Urge incontinence of urine 08/06/2021 Other hyperlipidemia 08/14/2018 Severe obesity (BMI 35.0-39.9) with sridevi rbidity 08/10/2017 HTN, goal below 140/90 11/16/2015 Overview: Per HTN Protocol documented as of this encounter (statuses as of 02/15/2023) Resolved Problems Problem Noted Date Resolved Date Myelopathy 10/23/2018 01/26/2022 Obesity (BMI 35.0-39.9 without comorbidity) 01/201808/10/2017 Class 2 obesity with body ma ss index (BMI) of 35 to 39.9 without comorbidity 12/12/2016 08/10/2017 HTN, goal below 140/80 05/26/2015 6 Overview: Per HTN Protocol Essential hypertension 5 Overview: ICD-10 update of inactive term documented as of this encounter (statuses as of 02/15/2023) Immunizations Name Administration Dates Next Due Pneumococcal [...] Jayro Merrill MD [address] [place] [address] 03/03/2023 Appointment Radiology 03/09/2023 Office Visit Hematology Oncology Kevan Vickers MD [address] [place] [place] [phone] 03/10/2023 Office Visit [facility] [phone] 05/15/2023 Office Visit Family Medicine Isabel Morales CRNP [address] [place] [phone] 09/15/2023 Office Visit Dermatology Liliya Koch PA-C [address] [place] [phone] Pending Results Name Type Priority Associated Diagnoses Date /Time MYCODE INITIAL ADULT Lab Routine MyCode Research Other*[id number] 02/15/2023 2:07 PM EDT COMPREHENSIVE METABOLIC PANEL Lab STAT 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) 02/15/2023 2:07 PM EDT LD Lab STAT 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) 02/15/2023 2:07 PM EDT IRON SCREEN, INCLUDING TIBC Lab STAT 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) 02/15/2023 2:07 PM EDT FERRITIN Lab STAT 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) 02/15/2023 2:07 PM EDT CA 27.29 Lab STAT 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) 02/15/2023 2:07 PM EDT CEA Lab STAT 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) Other abnormal tumor markers 02/15/2023 2:07 PM EDT MYCODE INITIAL ADULT-PINK Lab Routine MyCode Research Other*[id number] 02/15/2023 2:07 PM EDT MYCODE SST1 Lab Routine MyCode Research Other*[id number] 02/15/2023 2:07 PM EDT MYCODE SST2 Lab Routine MyCode Research Other*[id number] 02/15/2023 2:07 PM EDT Health Maintenance Due Date Last Done [...] Not on filedocumented as of this encounter Procedures Procedure Name Priority Date/Time Associated Diagnosis Comments DIFFERENTIAL, AUTOMATED STAT 02/15/2023 2:07 PM EDT 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) CBC WITH WBC DIFFERENTIAL STAT 02/15/2023 2:07 PM EDT 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) CBC STAT 02/15/2023 2:07 PM EDT 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75 1.80 - 7.70 K/uL 02/15/2023 2:19 PM EDT [facility] Absolute Lymphocytes 1.80 1.00 - 4.80 K/ul 02/15/2023 2:19 PM EDT [facility] Absolute Monocytes 0.58 0.00 - 1.10 K/uL 02/15/2023 2:19 PM EDT LABORATORY GL Absolute Eosinophils 0.25 0.00 - 0.70 K/uL 02/15/2023 2:19 PM EDT LABORATORY [facility] Absolute Basophils 0.05 0.00 - 0.20 K/uL 02/15/2023 2:19 PM EDT LABORATORY GL Absolute Immature Granulocytes 0.01 0.00 - 0.20 K/uL 02/15/2023 2:19 PM EDT LABORATORY [facility] Blood Venous blood specimen / Unknown Venipuncture / Unknown 02/15/2023 2:07 PM EDT 02/15/2023 2:09 PM EDT Kevan Vickers MD LAB BLOOD ORD ERABLES LABORATORY [facility] [address] [place] [address] * CBC (02/15/2023 2:07 PM EDT) Pathologist [facility] WBC 5.44 4.00 - 10.80 K/uL 02/15/2023 2:19 PM EDT LABORATORY [facility] RBC 4.69 3.85 - 5.15 M/uL 02/15/2023 2:19 PM EDT LABORATORY [facility] HGB 14.5 12.0 - 15.3 g/dL 02/15/2023 2:19 PM EDT LABORATORY [facility] HCT 43.1 36.0 - 45.2 % 02/15/2023 2:19 PM EDT LABORATORY [facility] MCV 91.9 81.5 - 97.5 fL 02/15/2023 2:19 PM EDT LABORATORY [facility] MCH 30.9 27.0 - 34.0 pg 02/15/2023 2:19 PM EDT LABORATORY [facility] MCHC 33.6 32.0 - 36.0 g/dL 02/15/2023 2:19 PM EDT LABORATORY [facility] RDW 14.0 11.5 - 15.5 % 02/15/2023 2:19 PM EDT LABORATORY [facility] PLT 219 140 - 400 K/uL 02/15/2023 2:19 PM EDT LABORATORY [facility] MPV 10.3 6.6 - 11.1 fL 02/15/2023 2:19 PM EDT LABORATORY [facility] nRBCs 0 <=0 /100 WBCs 02/15/2023 2:19 PM EDT LABORATORY [facility] Blood Venous blood specimen / Unknown Venipuncture / Unknown 02/15/2023 2:07 PM EDT 02/15/2023 2:09 PM EDT Kevan Vickers MD LAB BLOOD ORD ERABLES LABORATORY [facility] [address] [facility] [place] [address] documented in this encounter Visit Diagnoses Diagnosis MyCode Research Other*[id number] 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 [place] [address] PCP - General Nurse Practitioner 11/11/22 documented as of this encounter
--- OUTSIDE RECORDS SUMMARY | 2023-04-19 06:44 | External Medical Summary | Summary of Care ---
Author Name Unknown Organization [facility] Address [address] [place] [address] Phone [phone] Care Team Providers Care Window And Door Installer Name Role Phone Isabel Morales Primary Care Provider +1- [phone] Encounter Details Date Type Department Care Team Description 02/20/2023 Orders Only Outcomes Research Department [address] [place] [address] Lizette Pimentel CHRA [employer]CC[employer]nection Research Other*[id number] Allergies Active Allergy Reactions Severity Noted Date Comments Penicillins 02/07/2014 documented as of this encounter (statuses as of 02/20/2023) Medications Medication Sig Dispensed Refills Start Date End Date Status MULTI-VITAMINS PO TABS one daily 0 Active [place] 3 1000 MG CAPS Take by mouth [...] as of this encounter (statuses as of 02/20/2023) Active Problems Problem Noted Date Advanced directives, counseling/discussi on 08/06/2021 Urge incontinence of urine 08/06/2021 Other hyperlipidemia 08/14/2018 Severe obesity (BMI 35.0-39.9) with sridevi rbidity 08/10/2017 HTN, goal below 140/90 11/16/2015 Overview: Per HTN Protocol documented as of this encounter (statuses as of 02/20/2023) Resolved Problems Problem Noted Date Resolved Date Myelopathy 10/23/2018 01/26/2022 Obesity (BMI 35.0-39.9 without comorbidity) 01/201808/10/2017 Class 2 obesity with body ma ss index (BMI) of 35 to 39.9 without comorbidity 12/12/2016 08/10/2017 HTN, goal below 140/80 05/26/2015 6 Overview: Per HTN Protocol Essential hypertension 5 Overview: ICD-10 update of inactive term documented as of this encounter (statuses as of 02/20/2023) Immunizations Name Administration Dates Next Due Pneumococcal [...] Jayro Merrill MD [address] [place] [address] 03/03/2023 Appointment Radiology 03/09/2023 Office Visit Hematology Oncology [facility]ickers [facility] [address] [facility] [place] [phone] 03/10/2023 Office Visit Cardiology Kimberlee Rodriguez MD [address] [facility] [place] [phone] 05/15/2023 Office Visit Family Medicine Isabel Morales CRNP [address] [place] [phone] 09/15/2023 Office Visit Dermatology Liliya Koch PA-C [address] [facility] [address] [place] [phone] Scheduled Orders Name Type Priority Associated Diagnoses Orde r Schedule MYCODE SUBSEQUENT ADULT Lab Routine MyCode Research Other*[id number] Every 6 Months for 2 Occurrences starting 02/20/2023 until 03/11/2024 Health Maintenance Due Date Last Done Comments [...] as of this encounter Visit Diagnoses Diagnosis MyCode Research Other*[id number] documented in this encounter Care Teams Window And Door Installer Relationship Specialty Start Date End Date [facility]ales [facility] [place] [address] PCP - General Nurse Practitioner 11/11/22 documented as of this encounter
--- OUTSIDE RECORDS SUMMARY | 2023-04-19 06:44 | External Medical Summary ---
Author Name Unknown Address Unknown Organization K01:LABORATORY [facility] - [address] [place] [address] Laboratory Report Ordering Provider Test Date Status ROZINA WISE 02/15/2023 14:07:48 Final Observation Date Value Abnormality Reference (Units ) Status LDH 02/15/2023 14:07:48 223 <=250 (U/L ) Final Performing Location LAB[facility]ATORY [facility] - [address] [place] [address]
--- OUTSIDE RECORDS SUMMARY | 2023-04-19 06:44 | External Medical Summary | Summary of Care ---
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 * Evaluate & Treat - Unlimited Visits (Within 10 days (routine)) - Authorized Specialty Diagnoses / Procedures Referred By Fer almazan Referred To Contact Breast Clinic Multi Specialty / Surgical Oncology Diagnoses Abnormal mammogram Metastatic carcinoma (HCC) Abnormal breast biopsy Isabel Morales CRNP [address] [place] [address] Referral ID Status Reason Start Date Expiration Date Visits Requested Visits Authorized [id number] Authorized Specialty Services Required 02/01/2023 999 999 Encounter Details Date Type Department Care Team Description 02/09/2023 Office Visit General [facility] [address] [facility] [address] Jayro Merrill MD [address] [place] [address] 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)* Allergies Active Allergy Reactions Severity Noted Date Comments Penicillins 02/07/2014 documented as of this encounter (statuses as of 02/09/2023) Medications Medication Sig Dispensed Refills Start Date End Date Status MULTI-VITAMINS PO TABS one daily 0 Active Brigantine 3 1000 MG CAPS Take by mouth [...] Sign Reading Time Taken Comments Blood Pressure - - Pulse 73 02/09/2023 8:50 AM EDT Temperature - - Respiratory Rate - - Oxygen Saturation - - Inhaled Oxygen Concentration - - Weight 91.7 kg (202 lb 3.2 oz) 02/09/2023 8:50 A M EDT Height - - Body Mass Index 35.82 02/10/2022 12:48 PM EDT documented in this encounter Progress Notes * Jayro Merrill MD - 02/09/2023 1:57 PM EDT [facility] BRE[facility]IC NOTES INDICATION: Left Breast Cancer Clinical Stage unknown HISTORY OF PRESENT ILLNESS: Chelsie Robetrson is a 78 year old year old [...] negative. This was found on screening mammogram. BREAST HISTORY: Mass: No Breast Pain: no Nipple discharge: No Previous problems/surgeries: None Breast Cancer: no Other Cancers: no GYNECOLOGIC HISTORY: Menarche at age: 15 Menopause at age: [age] Number of children: 5 Patient's age at first live : 26 Ever take oral contraceptives? Yes, history of use for 2 year(s) Ever take estrogen? Estradiol RADIOLOGIC INTERPRETATION: Result MAMMOGRAM SCREENING MARIBEL BILATERAL History Encounter for screening mammogram for breast cancer The patient has no documented relevant family history. Films Compared 01/14/2021 MAMMOGRAM SCREENING MARIBEL BILATERAL, 01/01/2020 MAMMOGRAM SCREENING BILATERAL, 09/18/2018MAMMOGRAM SCREENING BILATERAL, and 08/10/2017 MAMMOGRAM SCREENING BILATERAL Findings Left The left breast has scattered areas [...] Category: 0 - Incomplete: Needs Additional Imaging Evaluation. Recommendation Callback ultrasound is recommended for the left axilla. Screening mammogram in 1 year is recommended for the right breast. ------ EXAM MAMMOGRAM POST BIOPSY CLIP PLACEMENT; US GUIDED BREAST BIOPSY LEFT- 01/26/2023 11:25 am; 01/26/2023 11:46 am HISTORY Post US Left Lymph Node Biopsy - Clip Mammo; left axillary lymph node biopsy COMPARISON Ultrasound dated 01/03/2023. TECHNIQUE Please see below FINDINGS A timeout procedure was performed and the patient's identification was verified. After discussion of the benefits and risks of the procedure and the alternatives, the patient was given the opportunity to ask questions. After her questions were answered to her satisfaction, informed consent with agreement of procedure, site, and position was obtained. The procedure matches verbalized consent. All necessary equipment was available prior to procedure. The side of the intended procedure was marked on the skin. Patient denies allergies to medications. She has no known blood dyscrasias and is not taking anticoagulant medication. Preliminary ultrasound redemonstrates morphologically abnormal left axillary lymph node with cortical thickness of 5.3 mm corresponding to the lymph node recommended for biopsy. Using aseptic technique, local anesthesia with 1% buffered lidocaine, and ultrasound guidance, core biopsy was performed of the lymph node. Passes through the target were documented. A tumark marker was placed in the lymph node. Postprocedure lateral and exaggerated CC views of the left breast were obtained revealing the marker to be within the lymph node. the patient tolerated the procedure well, and there were no complications. Specimens were sent to surgical pathology and results are pending. IMPRESSION IMPRESSION Successful ultrasound-guided core biopsy of morphologically abnormal left axillary lymph node performed. Recommendation Pending pathology MY INTERPRETATION: I have reviewed the films [...] with a container labeled with "Chelsie Robertson", "[id number]", "1945" and " left axillary lymph node [...] Out Location Pathologist sign out performed at [facility] [address] [place] [address]. FAMILY HISTORY: Family history of breast or [...] Dispense Refill MULTI-VITAMINS PO TABS one daily [place] 3 1000 MG CAPS Take by mouth [...] for this visit. Allergies: Allergies as of 02/09/2023 - Reviewed 02/09/2023 Allergen Reaction Noted Penicillins 02/07/2014 REVIEW OF SYSTEMS - ROS EXAM: As per HPI, otherwise negative EXAMINATION Pulse 73, weight 91.7 kg (202 lb 3.2 oz). Constitutional: alert, healthy, well nourished Head: normocephalic, atraumatic Eyes: conjunctiva non-injected, sclera white Neck: supple, no adenopathy Lungs: clear to auscultation, breath sounds are equal and symmetric Heart: regular rate & rhythm and no murmur, gallops or rubs Abdomen: soft, non-tender Extremities: no edema, no skin discoloration Neuro: alert, gait normal, motor normal Skin: no obvious rashes or significant lesions BREAST EXAMINATION Right Breast: No evidence of mass, skin retraction, nipple inversion, Pagets, peau d'orange, arm edema, nipple discharge, palpable axillary adenopathy, or palpable supraclavicular adenopathy. There are no surgical scars. Left Breast: No evidence of mass, skin retraction, nipple inversion, Pagets, peau d'orange, arm edema, nipple discharge, palpable axillary adenopathy, or palpable supraclavicular adenopathy. There are no surgical scars. IMPRESSION: 78-year-old woman presents with metastatic carcinoma, consistent with breast primary, in the left axilla. Mammogram was negative for any abnormalities in November. I had a long discussion with her concerning the finding. We discussed the need for a breast MRI for further evaluation of the left breast as well as the contralateral breast. I briefly discussed certain treatment modalities, however much will depend on what is found on the MRI. She has a appointment with the medical oncologist next week. We have set her up for the MRI, she will return to clinic once this is complete for further discussion of treatment options. She will call with any new or concerning symptoms in the meantime. I spent a total of 40-54 minutes (exact time 50 mins) on the date of service in preparation, delivery, and documentation of the care provided to Chelsie Robertson excluding any time spent in the performanceof separately billed services. Jayro Merrill MD 02/09/2023 1:57 PM documented in this encounter Nursing Notes * Patria Feliciano LPN - 02/09/2023 9:11 AM EDT Cultural Anthropology Professor Documentation Provider requested paper machine back tender. Name of paper machine back tender: Patria Felciiano * SHAUNA Waldrop - 02/09/2023 8:52 AM EDT Chief Complaint Patient presents with NEW PATIENT Left breast Ca. Patient presents today for evaluation of Abnormal Mammogram. Patient had mammogram done at [facility] on 11/18/2022. BREAST HISTORY: Mass: No Breast Pain: no Nipple discharge: No Previous problems/surgeries: None Breast Cancer: no Other Cancers: no GYNECOLOGIC HISTORY: LMP: No LMP recorded. Patient is postmenopausal. Menarche at age: 15 Menopause at age: 54-53 Number of children: 5 Patient's age at first live : 26 Did you breast feed any of your children: Yes Ever take oral contraceptives? Yes, history of use for 2 year(s) Ever take estrogen? Estradiol Family History of Breast Cancer: Yes. Mother and a sister. documented in this encounter Plan of Treatment Upcoming Encounters Date Type Specialty Care Team Description 02/15/2023 Office Visit Hematology Oncology Kevan Vickers MD [address] [place], [place] [address] [place] [id number] 02/23/2023 Appointment Radiology 03/01/2023 Office Visit General Surgery Jayro Merrill MD [address] [place] [address] 03/10/2023 Office Visit Cardiology [facility] [phone] 05/15/2023 Office Visit Family Medicine Isabel Morales CRNP [address] [place] [address] 09/15/2023 Office Visit Dermatology Liliya Koch PA-C [address] [facility] [address] [place] [address] Scheduled Orders Name Type Priority Associated Diagnoses Orde r Schedule MRI BREAST BILATERAL W WO CONTRAST Medical Imaging Routine 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
--- OUTSIDE RECORDS SUMMARY | 2023-04-19 06:44 | External Medical Summary ---
Author Name Unknown Address Unknown Organization [id number]:[facility]ORY [facility] [place] [address] [facility] [address] Laboratory Report Ordering Provider Test Date Status ROZINA WISE 02/15/2023 14:07:48 Final Observation Date Value Abnormality Reference (Units ) Status BUN 02/15/2023 14:07:48 25 Above high normal 6-20 (mg/dL) Final Creatinine 02/15/2023 14:07:48 1.2 Above high normal 0.5-1.0 (mg/dL) Final Glomerular filtration rate/1.73 sq M.predicted [Volume Rate/Area] in Serum, Plasma or Blood by Creatinine-based formula (CKD-EPI) 02/15/2023 14:07:48 49 Below low normal >=60 (mL/min) Final eGFR is calculated based on the CKD-EPI 2020 equation SODIUM 02/15/2023 14:07:48 141 135-146 (m mol/L) Final Potassium 02/15/2023 14:07:48 4.8 3.5-5.1 (m mol/L) Final Cl 02/15/2023 14:07:48 105 98-107 (mm ol/L) Final CO2 02/15/2023 14:07:48 24 22-32 (mmo l/L) Final Anion gap 02/15/2023 14:07:48 12 7-15 (mmol /L) Final Glucose 02/15/2023 14:07:48 99 70-120 (mg /dL) Final Albumin 02/15/2023 14:07:48 4.6 3.8-5.0 (g /dL) Final AST (Aspartate aminotransferase) 02/15/2023 14:07:48 22 10-35 (U/L) Final Alk Phos 02/15/2023 14:07:48 73 35-130 (U/ L) Final Bilirubin, Total 02/15/2023 14:07:48 0.4 <=1 .2 (mg/dL) Final Calcium 02/15/2023 14:07:48 10.0 8.4-10.2 ( mg/dL) Final Protein 02/15/2023 14:07:48 7.7 6.0-8.3 (g /dL) Final ALT (Alanine aminotransferase) 02/15/2023 14:07:48 20 10-35 (U/L) Final Performing Location [facility]ORY [facility] [place] - [address] [facility] [address]
--- OUTSIDE RECORDS SUMMARY | 2023-04-19 06:44 | External Medical Summary ---
Author Name Unknown Address Unknown Organization K01:LABORATORY [facility] - [address] [place] [address] Laboratory Report Ordering Provider Test Date Status ROZINA WISE 02/15/2023 14:07:48 Final Observation Date Value Abnormality Reference (Units ) Status CEA 02/15/2023 14:07:48 1.8 <=5.2 (ng/ mL) Final Performing Location LAB[facility]ORY [facility] - [address] [facility] [address]
--- OUTSIDE RECORDS SUMMARY | 2023-04-19 06:44 | External Medical Summary ---
Author Name Unknown Address Unknown Organization K01:[facility]ATORY [facility] [place] - [address] [address] Laboratory Report Ordering Provider Test Date Status CHERELLE BRUNER 02/15/2023 14:07:48 Final Observation Date Value Abnormality Reference (Units ) Status MYCODE SPECIMEN-SST 02/15/2023 14:07:48 Freezing of extracted DNA, whole blood and/or serum. Final Performing Location LABORATORY [facility] - [address] [place] [address]
--- OUTSIDE RECORDS SUMMARY | 2023-04-19 06:44 | External Medical Summary ---
Author Name Unknown Address Unknown Organization : Laboratory Report Ordering Provider Test Date Status ROZINA WISE 02/15/2023 14:07:48 Final Observation Date Value Abnormality Reference (Units ) Status Cancer Ag 27-02/15/2023 14:07:48 13 <38 (U/mL) Final This test was performed usin g the Siemens chemilumi-
nescent method. Values obtained from different assay
methods cannot be used interchangeably. CA27.29
levels, regardless of value, should not be interpreted
as absolute evidence of the presence or absence of
disease.

Test Performed at:
[facility]
[address]
[place] [address]
Kash Mayfield M.D., Ph.D.,Director of Laboratories Performing Location
--- OUTSIDE RECORDS SUMMARY | 2023-04-19 06:44 | External Medical Summary ---
Author Name Unknown Address Unknown Organization K01:LABORATORY [facility] [place] - [address] [address] Laboratory Report Ordering Provider Test Date Status CHERELLE BRUNER 02/15/2023 14:07:48 Final Observation Date Value Abnormality Reference (Units ) Status MYCODE SPECIMEN-SST 02/15/2023 14:07:48 Freezing of extracted DNA, whole blood and/or serum. Final Performing Location LABORATORY C - [address] [place] [address]
--- OUTSIDE RECORDS SUMMARY | 2023-04-19 06:44 | External Medical Summary ---
Author Name Unknown Address Unknown Organization K1F:LABORATORY [facility] - [address] [facility] [place] [address] Laboratory Report Ordering Provider Test Date Status ROZINA WISE 02/15/2023 14:07:48 Final Observation Date Value Abnormality Reference (Units ) Status SYNC LEUKOCYTES IN BLOOD BY AUTOMATED COUNT 02/15/2023 14:07:48 5.44 4.00-10.80 (K/uL) Final Segs 02/15/2023 14:07:48 50.5 40.0-75.0 (%) Final Lymphs % 02/15/2023 14:07:48 33.1 18.0-42.0 (%) Final Monos 02/15/2023 14:07:48 10.7 1.0-11.0 (%) Final Eosinophils 02/15/2023 14:07:48 4.6 0.0-6.0 (%) Final Basos 02/15/2023 14:07:48 0.9 0.0-2.0 (%) Final Immature Granulocyte, Percent 02/15/2023 14:07:48 0.2 0.0-2.0 (%) Final Absolute Segs 02/15/2023 14:07:48 2.75 1.80-7.70 (K/uL) Final Lymphs, absolute 02/15/2023 14:07:48 1.80 1.00-4.80 (K/ul) Final Monos, Abs 02/15/2023 14:07:48 0.58 0.00-1.10 (K/uL) Final Eos, Abs 02/15/2023 14:07:48 0.25 0.00-0.70 (K/uL) Final Basos, Abs 02/15/2023 14:07:48 0.05 0.00-0.20 (K/uL) Final Immature Granulocytes, Number 02/15/2023 14:07:48 0.01 0.00-0.20 (K/uL) Final Performing Location LABORATORY [facility] - [facility] [address] [place] [address]
--- OUTSIDE RECORDS SUMMARY | 2023-04-19 06:45 | External Medical Summary | Summary of Care ---
Author Name Unknown Organization [facility] Address [address] [place] [address] Phone [phone] Care Team Providers Care Secretarial Stenographer Name Role Phone Isabel Morales Primary Care Provider +1- [phone] Encounter Details Date Type Department Care Team Description 01/23/2023 Orders Only Outcomes Research Department [address] [place] [address] Lizette Pimentel CHRA [employer] Other*[id number] Allergies Active Allergy Reactions Severity Noted Date Comments Penicillins 02/07/2014 documented as of this encounter (statuses as of 01/23/2023) Medications Medication Sig Dispensed Refills Start Date End Date Status MULTI-VITAMINS PO TABS one daily 0 Active [place] 3 1000 MG CAPS Take by mouth [...] as of this encounter (statuses as of 01/23/2023) Active Problems Problem Noted Date Advanced directives, counseling/discussi on 08/06/2021 Urge incontinence of urine 08/06/2021 Other hyperlipidemia 08/14/2018 Severe obesity (BMI 35.0-39.9) with sridevi rbidity 08/10/2017 HTN, goal below 140/90 11/16/2015 Overview: Per HTN Protocol documented as of this encounter (statuses as of 01/23/2023) Resolved Problems Problem Noted Date Resolved Date Myelopathy 10/23/2018 01/26/2022 Obesity (BMI 35.0-39.9 without comorbidity) 01/201808/10/2017 Class 2 obesity with body ma ss index (BMI) of 35 to 39.9 without comorbidity 12/12/2016 08/10/2017 HTN, goal below 140/80 05/26/2015 6 Overview: Per HTN Protocol Essential hypertension 5 Overview: ICD-10 update of inactive term documented as of this encounter (statuses as of 01/23/2023) Immunizations Name Administration Dates Next Due Pneumococcal [...] Encounters Date Type Specialty Care Team Description 01/26/2023 Appointment Radiology 03/10/2023 Office Visit Cardiology Kimberlee Rodriguez MD [address] [facility] [place] [phone] 05/15/2023 Office Visit Family Medicine Isabel Morales CRNP [address] [facility] [address] [place] [phone] 09/15/2023 Office Visit Dermatology Liliya Koch PA-C [address] [facility] [address] [place] [phone] Scheduled Orders Name Type Priority Associated Diagnoses Orde r Schedule MYCODE INITIAL ADULT Lab Routine [employer] Other*[id number] Expected: 01/23/2023 (Approximate), Expires: 02/12/2024 Health Maintenance Due Date Last Done Comments COVID-19 Vaccine (#1) 1945 DTaP,Tdap,and Td Vaccines (1 - Tdap) 1966 Zoster Vaccines (1 of 2) 1997 DXA Scan 03/26/2020 03/26/2013 Depression Screening, Annual for Pts 12 and Over 01/26/2023 01/26/2022 Influenza Vaccine (FLU shot) (#1) [...] this encounter Visit Diagnoses Diagnosis [employer] Other*[id number] documented in this encounter Care Teams Secretarial Stenographer Relationship Specialty Start Date End Date Isabel Morales CRNP [address] [facility] [place] [address] PCP - General Nurse Practitioner 11/11/22 documented as of this encounter
--- OUTSIDE RECORDS SUMMARY | 2023-04-19 06:45 | External Medical Summary | Summary of Care ---
Author Name Unknown Organization [facility] Address [address] [place] [address] Phone [phone] Care Team Providers Care Edge Roller Name Role Phone Isabel Morales Primary Care Provider +1- [phone] Reason for Referral * Evaluate & Treat - Unlimited Visits (Within 10 days (routine)) - Authorized Specialty Diagnoses / Procedures Referred By Fer almazan Referred To Contact Hematology/Oncology / Hematology Oncology Diagnoses Metastatic carcinoma (HCC) Abnormal breast biopsy Isabel Morales CRNP [address] [place] [address] Referral ID Status Reason Start Date Expiration Date Visits Requested Visits Authorized [id number] Authorized Specialty Services Required 02/01/2023 999 999 [...] Abnormal breast biopsy Isabel Morales CRNP [address] [place] [address] Referral ID Status Reason Start Date Expiration Date Visits Requested Visits Authorized [id number] Authorized Specialty Services Required 02/01/2023 999 999 Question Answer Referral Priority Within 10 days (routine) What is the reason to be seen? Breast Cancer Is there suspicion of Breast Cancer? Yes Comments Biopsy positive for carcinoma Reason for Visit * Reason Onset Date Comments Test Results Biopsy 02/01/2023 Referral 02/01/2023 Encounter Details Date Type Department Care Team Description [facility]/01[facility]2023 [facility] [address] [place] [address] Isabel Morales CRNP [address] [facility] [place] [address] Test Results Biopsy; Referral Allergies Active Allergy Reactions Severity Noted Date Comments Penicillins 02/07/2014 documented as of this encounter (statuses as of 02/07/2023) Medications Medication Sig Dispensed Refills Start Date End Date Status MULTI-VITAMINS PO TABS one daily 0 Active [place] 3 1000 MG CAPS Take by mouth [...] as of this encounter (statuses as of 02/07/2023) Active Problems Problem Noted Date Advanced directives, counseling/discussi on 08/06/2021 Urge incontinence of urine 08/06/2021 Other hyperlipidemia 08/14/2018 Severe obesity (BMI 35.0-39.9) with sridevi rbidity 08/10/2017 HTN, goal below 140/90 11/16/2015 Overview: Per HTN Protocol documented as of this encounter (statuses as of 02/07/2023) Resolved Problems Problem Noted Date Resolved Date Myelopathy 10/23/2018 01/26/2022 Obesity (BMI 35.0-39.9 without comorbidity) 01/201808/10/2017 Class 2 obesity with body ma ss index (BMI) of 35 to 39.9 without comorbidity 12/12/2016 08/10/2017 HTN, goal below 140/80 05/26/2015 6 Overview: Per HTN Protocol Essential hypertension 5 Overview: ICD-10 update of inactive term documented as of this encounter (statuses as of 02/07/2023) Immunizations Name Administration Dates Next Due Pneumococcal [...] encounter Miscellaneous Notes * Telephone Encounter - SWATHI Strong - 02/01/2023 4:19 PM EDT Phone call to patient to inform her of biopsy results, all questions answered. She is agreeable to referral to breast center and oncology. Referrals ordered. She is expecting a call for scheduling. Thank you documented in this encounter Plan of Treatment Upcoming Encounters Date Type Specialty Care Team Description 02/09/2023 Office Visit General Surgery Jayro Merrill MD [address] [facility] [place] [address] 02/15/2023 Office Visit Hematology Oncology Kevan Vickers MD [address] [facility] [phone] 03/10/2023 Office Visit Cardiology Kimberlee Rodriguez MD [address] [facility] [place] [phone] 05/15/2023 Office Visit Family Medicine Isabel Morales CRNP [address] [place] [phone] 09/15/2023 Office Visit Dermatology [facility] Koch [facility]C [facility] [address] [place] [address] Scheduled Referrals Name Type Priority Associated Diagnoses [...] findings documented in this encounter Care Teams Edge Roller Relationship Specialty Start Date End Date Isabel Morales CRNP [address] [place] [address] PCP - General Nurse Practitioner 11/11/22 documented as of this encounter
--- OUTSIDE RECORDS SUMMARY | 2023-04-19 06:45 | External Medical Summary | Summary of Care ---
Author Name Unknown Organization [facility] Address [address] [place] [address] Phone [phone] Care Team Providers Care Retail Field Supervisor Name Role Phone Isabel Morales Primary Care Provider +1- [phone] Reason for Visit * Reason Onset Date Comments Order Request 01/10/2023 Encounter Details Date Type Department Care Team Description 01/10/2023 Telephone Radiology [facility] [address] [facility] [address] Isabel Morales CRNP [address] [place] [address] Order Request Allergies Active Allergy Reactions Severity Noted Date Comments Penicillins 02/07/2014 documented as of this encounter (statuses as of 01/11/2023) Medications Medication Sig Dispensed Refills Start Date End Date Status MULTI-VITAMINS PO TABS one daily 0 Active [place] 3 1000 MG CAPS Take by mouth [...] as of this encounter (statuses as of 01/11/2023) Active Problems Problem Noted Date Advanced directives, counseling/discussi on 08/06/2021 Urge incontinence of urine 08/06/2021 Other hyperlipidemia 08/14/2018 Severe obesity (BMI 35.0-39.9) with sridevi rbidity 08/10/2017 HTN, goal below 140/90 11/16/2015 Overview: Per HTN Protocol documented as of this encounter (statuses as of 01/11/2023) Resolved Problems Problem Noted Date Resolved Date Myelopathy 10/23/2018 01/26/2022 Obesity (BMI 35.0-39.9 without comorbidity) 01/201808/10/2017 Class 2 obesity with body ma ss index (BMI) of 35 to 39.9 without comorbidity 12/12/2016 08/10/2017 HTN, goal below 140/80 05/26/2015 6 Overview: Per HTN Protocol Essential hypertension 5 Overview: ICD-10 update of inactive term documented as of this encounter (statuses as of 01/11/2023) Immunizations Name Administration Dates Next Due Pneumococcal [...] * Telephone Encounter - SWATHI Strong - 01/11/2023 1:34 PM EDT Orders signed. Thank you * Telephone Encounter - DARIUSZ Fung - 01/11/2023 9:00 AM EDT Spoke with patient, she is requesting to be scheduled at [facility]. * Telephone Encounter - Krystyna Cisse RDMS - 01/10/2023 3:39 PM EDT Confirmed with the lab - the number of specimens should be ONE, as one lymph node will be sampled. Thank you! * Telephone Encounter - SWATHI Strong - 01/10/2023 12:22 PM EDT Ashlee, I am happy to sign the orders, but I do not know what to put in the number of specimens slot and cannot sign the orders without this information. Please fereIsabel * Telephone Encounter - Krystyna Cisse RDMS - 01/10/2023 8:30 AM EDT Order pended as recommended per 01/03/23 diagnostic work-up. Mammography professor of social work will contact patient to schedule. documented in this encounter Plan of Treatment Upcoming Encounters Date Type Specialty Care Team Description 03/10/2023 [facility] [address] [facility] [id number] 05/15/2023 [facility] [place] [phone] 09/15/2023 Office Visit Dermatology Liliya Koch PA-C [address] [place] [phone] Scheduled Orders Name Type Priority Associated Diagnoses Orde r Schedule US NEEDLE BIOPSY Medical Imaging Routine Abnormal mammogram Expected: 01/11/2023 (Approximate), Expires: 04/12/2023 SURGICAL PATHOLOGY Pathology Routine Abnormal mammogram Expected: 01/11/2023 (Approximate), Expires: 01/12/2024 Health Maintenance Due Date Last Done Comments [...] Diagnosis Abnormal mammogram- Primary Abnormal mammogram, unspecified documented in this encounter Care Teams Retail Field Supervisor Relationship Specialty Start Date End Date Isabel Morales CRNP 21 [facility] [place] [address] PCP - General Nurse Practitioner 11/11/22 documented as of this encounter
--- OUTSIDE RECORDS SUMMARY | 2023-04-19 06:45 | External Medical Summary | Summary of Care ---
Author Name Unknown Organization [facility] Address [address] [place] [address] Phone [phone] Care Team Providers Care Clay Shop Supervisor Name Role Phone Isabel Morales Primary Care Provider +1- [phone] Reason for Referral * Evaluate & Treat - Unlimited Visits (Within 10 days (routine)) - Authorized Specialty Diagnoses / Procedures Referred By Fer almazan Referred To Contact Hematology/Oncology / Hematology Oncology Diagnoses Metastatic carcinoma (HCC) Abnormal breast biopsy Isabel Morales CRNP [address] [place] [address] Referral ID Status Reason Start Date Expiration Date Visits Requested Visits Authorized [id number] Authorized Specialty Services Required 02/01/2023 999 999 [...] Abnormal breast biopsy Isabel Morales CRNP [address] [place] [address] Referral ID Status Reason Start Date Expiration Date Visits Requested Visits Authorized [id number] Authorized Specialty Services Required 02/01/2023 999 999 Question Answer Referral Priority Within 10 days (routine) What is the reason to be seen? Breast Cancer Is there suspicion of Breast Cancer? Yes Comments Biopsy positive for carcinoma Reason for Visit * Reason Onset Date Comments Test Results Biopsy 02/01/2023 Encounter Details Date Type Department Care Team Description [facility] [address] [place] [address] Isabel Morales CRNP 21 [facility] [place] [address] Test Results Biopsy Allergies Active Allergy Reactions Severity Noted Date Comments Penicillins 02/07/2014 documented as of this encounter (statuses as of 02/01/2023) Medications Medication Sig Dispensed Refills Start Date End Date Status MULTI-VITAMINS PO TABS one daily 0 Active [place] 3 1000 MG CAPS Take by mouth [...] as of this encounter (statuses as of 02/01/2023) Active Problems Problem Noted Date Advanced directives, counseling/discussi on 08/06/2021 Urge incontinence of urine 08/06/2021 Other hyperlipidemia 08/14/2018 Severe obesity (BMI 35.0-39.9) with sridevi rbidity 08/10/2017 HTN, goal below 140/90 11/16/2015 Overview: Per HTN Protocol documented as of this encounter (statuses as of 02/01/2023) Resolved Problems Problem Noted Date Resolved Date Myelopathy 10/23/2018 01/26/2022 Obesity (BMI 35.0-39.9 without comorbidity) 01/201808/10/2017 Class 2 obesity with body ma ss index (BMI) of 35 to 39.9 without comorbidity 12/12/2016 08/10/2017 HTN, goal below 140/80 05/26/2015 6 Overview: Per HTN Protocol Essential hypertension 5 Overview: ICD-10 update of inactive term documented as of this encounter (statuses as of 02/01/2023) Immunizations Name Administration Dates Next Due Pneumococcal [...] Kimberlee Rodriguez MD 400 [facility] [place] [id number] 05/15/2023 Office Visit Family Medicine Isabel Morales CRNP [address] [place] [phone] 09/15/2023 Office Visit Dermatology Liliya Koch PA-C [address] [place] [phone] Scheduled Referrals Name Type Priority Associated Diagnoses [...] findings documented in this encounter Care Teams Clay Shop Supervisor Relationship Specialty Start Date End Date Isabel Morales CRNP 21 [facility] [place] [address] PCP - General Nurse Practitioner 11/11/22 documented as of this encounter
--- OUTSIDE RECORDS SUMMARY | 2023-04-19 06:45 | External Medical Summary | Summary of Care ---
Author Name Unknown Organization [facility] Address [address] [place] [address] Phone [phone] Care Team Providers Care Manager Furniture Name Role Phone Isabel Morales Primary Care Provider +1- [phone] Encounter Details Date Type Department Care Team Description 01/03/2023 Hospital Encounter Radiology, [address] [place] [phone] Arrived Allergies Active Allergy Reactions Severity Noted Date Comments Penicillins 02/07/2014 documented as of this encounter (statuses as of 01/04/2023) Medications Medication Sig Dispensed Refills Start Date End Date Status MULTI-VITAMINS PO TABS one daily 0 Active [place] 3 1000 MG CAPS Take by mouth [...] as of this encounter (statuses as of 01/04/2023) Active Problems Problem Noted Date Advanced directives, counseling/discussi on 08/06/2021 Urge incontinence of urine 08/06/2021 Other hyperlipidemia 08/14/2018 Severe obesity (BMI 35.0-39.9) with sridevi rbidity 08/10/2017 HTN, goal below 140/90 11/16/2015 Overview: Per HTN Protocol documented as of this encounter (statuses as of 01/04/2023) Resolved Problems Problem Noted Date Resolved Date Myelopathy 10/23/2018 01/26/2022 Obesity (BMI 35.0-39.9 without comorbidity) 01/201808/10/2017 Class 2 obesity with body ma ss index (BMI) of 35 to 39.9 without comorbidity 12/12/2016 08/10/2017 HTN, goal below 140/80 05/26/2015 6 Overview: Per HTN Protocol Essential hypertension 5 Overview: ICD-10 update of inactive term documented as of this encounter (statuses as of 01/04/2023) Immunizations Name Administration Dates Next Due Pneumococcal [...] Encounters Date Type Specialty Care Team Description 03/02/2023 Office Visit Cardiology Kimberlee Rodriguez MD [address] [place] [id number] 05/15/2023 Office Visit Family Medicine Isabel Morales CRNP [address] [place] [phone] 09/15/2023 Office Visit Dermatology Liliya Koch PA-C [address] [place] [id number] Health Maintenance Due Date Last Done Comments [...] Name Priority Date/Time Associated Diagnosis Comments US AXILLA LEFT Routine 01/03/2023 2:22 PM EDT Abnormal mammogram documented in this encounter Results * (ABNORMAL) US BREAST AXILLA LEFT (01/03/2023 2:22 PM EDT) Anatomical Region Laterality Modality Breast Left Ultrasound Narrative 01/03/2023 4:58 PM EDT Result US BREAST AXILLA LEFT History Abnormal mammogram The patient has no documented relevant family history. Films Compared 11/18/2022 MAMMOGRAM SCREENING MARIBEL BILATERAL, 01/14/2021 MAMMOGRAM SCREENING MARIBEL BILATERAL, 01/01/2020 MAMMOGRAM SCREENING BILATERAL, and 09/18/2018 MAMMOGRAM SCREENING BILATERAL Findings The axilla tissue has a homogeneous background echotexture. Targeted ultrasound of the left axilla demonstrates 3 lymph nodes. 1 of the lymph nodes is bulky with thickened cortex measuring 5 mm in thickness. This is thought to correlate with dense lymph node seen partially overlying the pectoralis on MLO view on screening mammogram 11/18/2022. Color Doppler demonstrates no increased vascularity. The remainder of the 2 lymph nodes are morphologically normal, well-defined with hypoechoic rim /cortex and hyperechoic fatty hilum. Cortex measures approximately 2 mm in thickness, within normal range. Impression Lymph node with thickened cortex. Clinical correlation, correlation with lab data and ultrasound-guided core biopsy would be helpful for further evaluation. BI-RADS Category: 4 - Suspicious. Recommendation US guided axilla lymph node core biopsy is recommended. CT chest with intravenous contrast is a consideration for further evaluation as deemed clinically necessary. Patient was informed of the above at the time of her visit on 01/03/2023. This examination was performed at [facility], [address] [place] [id number]. Isabel ECHEVARRIA RAD ULTRASOUND documented in this encounter Visit Diagnoses Diagnosis Abnormal mammogram Abnormal mammogram, unspecified documented in this encounter Care Teams Manager Furniture Relationship Specialty Start Date End Date Isabel Morales CRNP 21 [facility] [place] [phone] PCP - General Nurse Practitioner 11/11/22 documented as of this encounter
--- OUTSIDE RECORDS SUMMARY | 2023-04-19 06:45 | External Medical Summary | Summary of Care ---
Author Name Unknown Organization [facility] Address [address] [place] [address] Phone [phone] Care Team Providers Care Activities Specialist Name Role Phone Isabel Morales Primary Care Provider +1- [phone] Encounter Details Date Type Department Care Team Description 01/26/2023 Hospital Encounter Radiology, [facility] [address] [place] [address] Arrived Allergies Active Allergy Reactions Severity Noted Date Comments Penicillins 02/07/2014 documented as of this encounter (statuses as of 01/27/2023) Medications Medication Sig Dispensed Refills Start Date End Date Status MULTI-VITAMINS PO TABS one daily 0 Active [place] 3 1000 MG CAPS Take by mouth [...] as of this encounter (statuses as of 01/27/2023) Active Problems Problem Noted Date Advanced directives, counseling/discussi on 08/06/2021 Urge incontinence of urine 08/06/2021 Other hyperlipidemia 08/14/2018 Severe obesity (BMI 35.0-39.9) with sridevi rbidity 08/10/2017 HTN, goal below 140/90 11/16/2015 Overview: Per HTN Protocol documented as of this encounter (statuses as of 01/27/2023) Resolved Problems Problem Noted Date Resolved Date Myelopathy 10/23/2018 01/26/2022 Obesity (BMI 35.0-39.9 without comorbidity) 01/201808/10/2017 Class 2 obesity with body ma ss index (BMI) of 35 to 39.9 without comorbidity 12/12/2016 08/10/2017 HTN, goal below 140/80 05/26/2015 6 Overview: Per HTN Protocol Essential hypertension 5 Overview: ICD-10 update of inactive term documented as of this encounter (statuses as of 01/27/2023) Immunizations Name Administration Dates Next Due Pneumococcal [...] Office Visit Cardiology Kimberlee Rodriguez MD 400 [facility] [place] [phone] 05/15/2023 Office Visit Family Medicine Isabel Morales CRNP [address] [place] [phone] 09/15/2023 Office Visit Dermatology Liliya Koch PA-C [address] [place] [phone] Pending Results Name Type Priority Associated Diagnoses Date /Time SURGICAL PATHOLOGY Pathology Routine Abnormal mammogram 01/26/2023 10:53 AM EDT Scheduled Orders Name Type Priority Associated Diagnoses Orde r Schedule SURGICAL PATHOLOGY Pathology Routine Abnormal mammogram Release Upon Ordering for 1 Occurrences starting 01/26/2023, 1 completed Health Maintenance Due Date Last [...] this encounter Medical Devices Implanted Type [employer] Device Identifier Shelf Expiration Date Model / Serial / Lot Hologic [employer]ark Vision Implanted:Qty: 1 on 01/26/2023 by Michael Silveira DO at [facility] Breast [id number] / / [id number] documented as of this encounter Procedures Procedure Name Priority Date/Time Associated Diagnosis Comments US GUIDED BREAST BIOPSY LEFT Routine 01/26/2023 11:46 AM EDT Abnormal mammogram documented in this encounter Results * US GUIDED BREAST BIOPSY LEFT (01/26/2023 11:46 AM EDT) Anatomical Region Laterality Modality Breast Left Ultrasound 01/26/2023 2:58 PM EDT Impressions 01/26/2023 2:55 PM EDT IMPRESSION Successful ultrasound-guided core biopsy of morphologically abnormal left axillary lymph node performed. Recommendation Pending pathology Narrative 01/26/2023 2:55 PM EDT EXAM MAMMOGRAM POST BIOPSY CLIP PLACEMENT; US [...] to surgical pathology and results are pending. Procedure Note Michael Silveira DO - 01/26/2023 EXAM MAMMOGRAM POST BIOPSY CLIP PLACEMENT; US GUIDED BREAST BIOPSY LEFT-01/26/2023 11:25 am; 01/26/2023 11:46 am HISTORY Post US Left Lymph Node Biopsy - Clip Mammo; left axillary lymph nodebiopsy COMPARISON Ultrasound dated 01/03/2023. TECHNIQUE Please see below FINDINGS A timeout procedure was performed and the patient's identification wasverified. After discussion of the benefits and risks of the procedure andthe alternatives, the patient was given the opportunity to ask questions.After her questions were answered to her satisfaction, informed consentwith agreement of procedure, site, and position was obtained. Theprocedure matches verbalized consent. All necessary equipment wasavailable prior to procedure. The side of the intended procedure wasmarked on the skin. Patient denies allergies to medications. She has noknown blood dyscrasias and is not taking anticoagulant medication. Preliminary ultrasound redemonstrates morphologically abnormal leftaxillary lymph node with cortical thickness of 5.3 mm corresponding to thelymph node recommended for biopsy. Using aseptic technique, localanesthesia with 1% buffered lidocaine, and ultrasound guidance, corebiopsy was performed of the lymph node. Passes through the target weredocumented. A tumark marker was placed in the lymph node. Postprocedurelateral and exaggerated CC views of the left breast were obtainedrevealing the marker to be within the lymph node. the patient toleratedthe procedure well, and there were no complications. Specimens were sentto surgical pathology and results are pending. IMPRESSION IMPRESSION Successful ultrasound-guided core biopsy of morphologically abnormal leftaxillary lymph node performed. Recommendation Pending pathology Isabel ECHEVARRIA RAD ULTRASOUND documented in this encounter Visit Diagnoses Diagnosis Abnormal mammogram Abnormal mammogram, unspecified documented in this encounter Care Teams Activities Specialist Relationship Specialty Start Date End Date Isabel Morales CRNP 21 [facility] [place] [address] PCP - General Nurse Practitioner 11/11/22 documented as of this encounter
--- OUTSIDE RECORDS SUMMARY | 2023-04-19 06:45 | External Medical Summary | Summary of Care ---
Author Name Unknown Organization [facility] Address [address] [place] [address] Phone [phone] Care Team Providers Care Fly Fishing Guide Name Role Phone Isabel Morales Primary Care Provider +1- [phone] Reason for Referral * Evaluate & Treat - Unlimited Visits (Within 10 days (routine)) - Authorized Specialty Diagnoses / Procedures Referred By Fer almazan Referred To Contact Hematology/Oncology / Hematology Oncology Diagnoses Metastatic carcinoma (HCC) Abnormal breast biopsy Isabel Morales CRNP [address] [place] [address] Referral ID Status Reason Start Date Expiration Date Visits Requested Visits Authorized [id number] Authorized Specialty Services Required 02/01/2023 999 999 [...] Abnormal breast biopsy Isabel Morales CRNP [address] [place] [address] Referral ID Status Reason Start Date Expiration Date Visits Requested Visits Authorized [id number] Authorized Specialty Services Required 02/01/2023 999 999 Question Answer Referral Priority Within 10 days (routine) What is the reason to be seen? Breast Cancer Is there suspicion of Breast Cancer? Yes Comments Biopsy positive for carcinoma Reason for Visit * Reason Onset Date Comments Test Results Biopsy 02/01/2023 Encounter Details Date Type Department Care Team Description [facility] [place] [address] Isabel Morales CRNP 21 [facility] [place] [address] Test Results Biopsy Allergies Active Allergy Reactions Severity Noted Date Comments Penicillins 02/07/2014 documented as of this encounter (statuses as of 02/01/2023) Medications Medication Sig Dispensed Refills Start Date End Date Status MULTI-VITAMINS PO TABS one daily 0 Active [place] 3 1000 MG CAPS Take by mouth [...] Office Visit Cardiology Kimberlee Rodriguez MD 400 [facility] [place] [phone] 05/15/2023 Office Visit Family Medicine Isabel Morales CRNP [address] [place] [phone] 09/15/2023 Office Visit Dermatology Liliya Koch PA-C [address] [place] [phone] Scheduled Referrals Name Type Priority Associated Diagnoses [...] findings documented in this encounter Care Teams Fly Fishing Guide Relationship Specialty Start Date End Date Isabel Morales CRNP 21 [facility] [place] [address] PCP - General Nurse Practitioner 11/11/22 documented as of this encounter
--- OUTSIDE RECORDS SUMMARY | 2023-04-19 06:45 | External Medical Summary | Summary of Care ---
Author Name Unknown Organization [facility] Address [address] [place] [address] Phone [phone] Care Team Providers Care Wardrobe Coordinator Name Role Phone Isabel Morales Primary Care Provider +1- [phone] Encounter Details Date Type Department Care Team Description 11/16/2022 Telephone Nephrology, [address] [address] Cain William MD [address] [place] [address] Allergies Active Allergy Reactions Severity Noted Date Comments Penicillins 02/07/2014 documented as of this encounter (statuses as of 12/01/2022) Medications Medication Sig Dispensed Refills Start Date End Date Status MULTI-VITAMINS PO TABS one daily 0 Active [place] 3 1000 MG CAPS Take by mouth [...] as of this encounter (statuses as of 12/01/2022) Active Problems Problem Noted Date Advanced directives, counseling/discussi on 08/06/2021 Urge incontinence of urine 08/06/2021 Other hyperlipidemia 08/14/2018 Severe obesity (BMI 35.0-39.9) with sridevi rbidity 08/10/2017 HTN, goal below 140/90 11/16/2015 Overview: Per HTN Protocol documented as of this encounter (statuses as of 12/01/2022) Resolved Problems Problem Noted Date Resolved Date Myelopathy 10/23/2018 01/26/2022 Obesity (BMI 35.0-39.9 without comorbidity) 01/201808/10/2017 Class 2 obesity with body ma ss index (BMI) of 35 to 39.9 without comorbidity 12/12/2016 08/10/2017 HTN, goal below 140/80 05/26/2015 6 Overview: Per HTN Protocol Essential hypertension 5 Overview: ICD-10 update of inactive term documented as of this encounter (statuses as of 12/01/2022) Immunizations Name Administration Dates Next Due Pneumococcal [...] Miscellaneous Notes * Telephone Encounter - DARIUSZ Alaniz - 11/16/2022 9:49 AM EDT Called patient to schedule appointment on recall list. Patient is not interested to schedule an follow-up visit with Dr. William. documented in this encounter Plan of Treatment Upcoming Encounters Date Type Specialty Care Team Description 01/03/2023 Appointment Radiology 01/03/2023 Appointment Radiology 03/02/2023 Office Visit [facility]iology [facility] [address] [facility] [phone] 05/15/2023 Office Visit Family Medicine Isabel Morales CRNP [address] [place] [address] 09/15/2023 Office Visit Dermatology Liliya Koch PA-C [address] [place] [address] Health Maintenance Due Date Last Done Comments COVID-19 Vaccine (#1) 1945 DTaP,Tdap,and Td Vaccines (1 - Tdap) 1966 Zoster Vaccines (1 of 2) 1997 DXA Scan 03/26/2020 03/26/2013 Depression Screening, Annual for Pts 12 and Over 01/26/2023 01/26/2022 Influenza Vaccine (FLU shot) (Season Ended) 2023 GFR 11/12/2023 11/11/2022, 01/04, 12/03/2020, Additional [...] filedocumented as of this encounter Care Teams Wardrobe Coordinator Relationship Specialty Start Date End Date Isabel Morales CRNP 21 [facility] [place] [address] PCP - General Nurse Practitioner 11/11/22 documented as of this encounter
--- OUTSIDE RECORDS SUMMARY | 2023-04-19 06:45 | External Medical Summary | Summary of Care ---
Author Name Unknown Organization [facility] Address [address] [place] [address] Phone [phone] Care Team Providers Care Supervisor Vendor Quality Name Role Phone Isabel Morales Primary Care Provider +1- [phone] Reason for Visit * Reason Onset Date Comments Appointment 01/13/[address] B iopsy Encounter Details Date Type Department Care Team Description 01/13[facility] [place] [address] Isabel Morales CRNP [address] [place] [address] Appointment (US Axillary LN Biopsy) Allergies Active Allergy Reactions Severity Noted Date Comments Penicillins 02/07/2014 documented as of this encounter (statuses as of 01/13/2023) Medications Medication Sig Dispensed Refills Start Date End Date Status MULTI-VITAMINS PO TABS one daily 0 Active [place] 3 1000 MG CAPS Take by mouth [...] as of this encounter (statuses as of 01/13/2023) Active Problems Problem Noted Date Advanced directives, counseling/discussi on 08/06/2021 Urge incontinence of urine 08/06/2021 Other hyperlipidemia 08/14/2018 Severe obesity (BMI 35.0-39.9) with sridevi rbidity 08/10/2017 HTN, goal below 140/90 11/16/2015 Overview: Per HTN Protocol documented as of this encounter (statuses as of 01/13/2023) Resolved Problems Problem Noted Date Resolved Date Myelopathy 10/23/2018 01/26/2022 Obesity (BMI 35.0-39.9 without comorbidity) 01/201808/10/2017 Class 2 obesity with body ma ss index (BMI) of 35 to 39.9 without comorbidity 12/12/2016 08/10/2017 HTN, goal below 140/80 05/26/2015 6 Overview: Per HTN Protocol Essential hypertension 5 Overview: ICD-10 update of inactive term documented as of this encounter (statuses as of 01/13/2023) Immunizations Name Administration Dates Next Due Pneumococcal [...] Miscellaneous Notes * Telephone Encounter - DARIUSZ Goetz - 01/13/2023 3:40 PM EDT Called and spoke with the patient. Scheduled US guided left breast axillary lymph node biopsy for 01/26/23 at 1030. Patient identified by: name/birthdate Person taught: Patient PATIENT INSTRUCTIONS GIVEN: - General Preoperative Instructions Reviewed - No Medication Instructions Reviewed - patient denies taking any anticoagulants - No food or fluid restrictions prior procedure - Software Configuration Engineer recommended - Location and check-in instructions - Wear comfortable, supportive bra Verbalizes understanding of education: Yes Procedure date at time of Imaging Encounter: 01/26/23 at 1030 What procedure is patient having? US Guided Axillary Lymph Node Biopsy Laterality confirmed as Left The Patient was given the opportunity to ask questions concerning the procedure. Signature: DARIUSZ Goetz 01/13/2023 documented in this encounter Plan of Treatment Upcoming Encounters Date Type Specialty Care Team Description 01/26/2023 Appointment Radiology 03/10/2023 Office Visit Cardiology Kimberlee Rodriguez MD [address] [place] [address] [place] [id number] 05/15/2023 Office Visit Family Medicine Isabel Morales CRNP 21 [facility] [place] [address] 09/15/2023 Office Visit Dermatology Liliya Koch PA-C [address] [place] [address] Health Maintenance Due Date Last Done Comments [...] filedocumented as of this encounter Care Teams Supervisor Vendor Quality Relationship Specialty Start Date End Date Isabel Morales CRNP [address] [place] [address] PCP - General Nurse Practitioner 11/11/22 documented as of this encounter
--- OUTSIDE RECORDS SUMMARY | 2023-04-19 06:45 | External Medical Summary | Summary of Care ---
Author Name Unknown Organization [facility] Address [address] [place] [address] Phone [phone] Care Team Providers Care Cork Compounder Name Role Phone Isabel Morales Primary Care Provider +1- [phone] Encounter Details Date Type Department Care Team Description 01/03/2023 Hospital Encounter Radiology, [address] [id number] Canceled (Clinician Appt Cancel Appt Not Needed) Allergies Active Allergy Reactions Severity Noted Date Comments Penicillins 02/07/2014 documented as of this encounter (statuses as of 01/04/2023) Medications Medication Sig Dispensed Refills Start Date End Date Status MULTI-VITAMINS PO TABS one daily 0 Active [place] 3 1000 MG CAPS Take by mouth [...] Office Visit [facility] [phone] 05/15/2023 Office Visit Family Medicine Isabel Morales CRNP 21 [place] [phone] 09/15/2023 Office Visit Dermatology Liliya Koch PA-C [address] [place] [phone] Health Maintenance Due Date Last Done Comments [...] of this encounter Visit Diagnoses Diagnosis Abnormal mammogram Abnormal mammogram, unspecified documented in this encounter Care Teams Cork Compounder Relationship Specialty Start Date End Date Isabel Morales CRNP 21 [facility] [place] [phone] PCP - General Nurse Practitioner 11/11/22 documented as of this encounter
--- OUTSIDE RECORDS SUMMARY | 2023-04-19 06:45 | External Medical Summary | Summary of Care ---
Author Name Unknown Organization [facility] Address [address] [place] [address] Phone [phone] Care Team Providers Care Sucker Machine Operator Name Role Phone Isabel Morales Primary Care Provider +1- [phone] Reason for Visit * Reason Onset Date Comments Information 01/26/2023 Encounter Details Date Type Department Care Team Description 01/26/2023 Telephone Radiology, [facility] [address] [place] [address] Isabel Morales CRNP [address] [place] [address] Information Allergies Active Allergy Reactions Severity Noted Date Comments Penicillins 02/07/2014 documented as of this encounter (statuses as of 01/26/2023) Medications Medication Sig Dispensed Refills Start Date End Date Status MULTI-VITAMINS PO TABS one daily 0 Active [place] 3 1000 MG CAPS Take by mouth [...] as of this encounter (statuses as of 01/26/2023) Active Problems Problem Noted Date Advanced directives, counseling/discussi on 08/06/2021 Urge incontinence of urine 08/06/2021 Other hyperlipidemia 08/14/2018 Severe obesity (BMI 35.0-39.9) with sridevi rbidity 08/10/2017 HTN, goal below 140/90 11/16/2015 Overview: Per HTN Protocol documented as of this encounter (statuses as of 01/26/2023) Resolved Problems Problem Noted Date Resolved Date Myelopathy 10/23/2018 01/26/2022 Obesity (BMI 35.0-39.9 without comorbidity) 01/201808/10/2017 Class 2 obesity with body ma ss index (BMI) of 35 to 39.9 without comorbidity 12/12/2016 08/10/2017 HTN, goal below 140/80 05/26/2015 6 Overview: Per HTN Protocol Essential hypertension 5 Overview: ICD-10 update of inactive term documented as of this encounter (statuses as of 01/26/2023) Immunizations Name Administration Dates Next Due Pneumococcal [...] Telephone Encounter - Maggie Mark RDMS - 01/26/2023 11:46 AM EDT Following completion of left axillary ultrasound guided core biopsy, discharge instructions were provided and patient expressed understanding. Specimen was delivered to the lab at 1150 am. documented in this encounter Plan of Treatment Upcoming Encounters Date Type Specialty Care Team Description 03/10/2023 Office Visit Cardiology Kimberlee Rodriguez MD 400 [facility] [place] [phone] 05/15/2023 Office Visit Family Medicine Isabel Morales CRNP [address] [place] [phone] 09/15/2023 Office Visit Dermatology Liliya Koch PA-C 27 [facility] [address] [place] [phone] Health Maintenance Due Date Last Done Comments [...] this encounter Medical Devices Implanted Type Area Adult Basic Education Instructor Device Identifier Shelf Expiration Date Model / Serial / Lot Hologic [place] Vision Implanted:Qty: 1 on 01/26/2023 by Michael Silveira DO at [facility] Breast [id number] / / [id number] documented as of this encounter Care Teams Sucker Machine Operator Relationship Specialty Start Date End Date Isabel Morales CRNP 21 [facility] [place] [address] PCP - General Nurse Practitioner 11/11/22 documented as of this encounter
--- OUTSIDE RECORDS SUMMARY | 2023-04-19 06:45 | External Medical Summary | Summary of Care ---
Author Name Unknown Organization [facility] Address [address] [place] [address] Phone [phone] Care Team Providers Care Weight Engineer Name Role Phone Isabel Morales Primary Care Provider +1- [phone] Encounter Details Date Type Department Care Team Description 01/26/2023 Hospital Encounter Radiology, [facility] [address] [place] [address] Arrived Allergies Active Allergy Reactions Severity Noted Date Comments Penicillins 02/07/2014 documented as of this encounter (statuses as of 01/27/2023) Medications Medication Sig Dispensed Refills Start Date End Date Status MULTI-VITAMINS PO TABS one daily 0 Active [place] 3 1000 MG CAPS Take by mouth [...] Office Visit Cardiology Kimberlee Rodriguez MD 400 [facility] [place] [address] 05/15/2023 Office Visit Family Medicine Isabel Morales CRNP [address] [place] [address] 09/15/2023 Office Visit Dermatology Liliya Koch PA-C [address] [place] [phone] Health Maintenance Due Date Last Done Comments [...] this encounter Medical Devices Implanted Type Area Business Planning Director Device Identifier Shelf Expiration Date Model / Serial / Lot Kandygic [place]ark Vision Implanted:Qty: 1 on 01/26/2023 by Michael Silveira DO at [facility] Breast [id number] / / [id number] documented as of this encounter Procedures Procedure Name Priority Date/Time Associated Diagnosis Comments MAMMOGRAM POST BIOPSY CLIP PLACEMENT Routine 01/26/2023 11:25 AM EDT Abnormal mammogram documented in this encounter Results * MAMMOGRAM POST BIOPSY CLIP PLACEMENT (01/26/2023 11:25 AM EDT) Anatomical Region Laterality Modality Breast Mammography 01/26/2023 2:58 PM EDT Impressions 01/26/2023 2:55 [...] performed. Recommendation Pending pathology Isabel ECHEVARRIA RAD MAMMOGRAPHY documented in this encounter Visit Diagnoses Diagnosis Abnormal mammogram Abnormal mammogram, unspecified documented in this encounter Care Teams Weight Engineer Relationship Specialty Start Date End Date Isabel Morales CRNP 21 [facility] [place] [address] PCP - General Nurse Practitioner 11/11/22 documented as of this encounter
--- OUTSIDE RECORDS SUMMARY | 2023-04-19 06:45 | External Medical Summary | Summary of Care ---
Author Name Unknown Organization [facility] Address [address] [place] [address] Phone [phone] Care Team Providers Care Guitar Teacher Name Role Phone Isabel Morales Primary Care Provider +1- [phone] Reason for Referral * Evaluate & Treat - Unlimited Visits (Within 10 days (routine)) - Authorized Specialty Diagnoses / Procedures Referred By Fer almazan Referred To Contact Hematology/Oncology / Hematology Oncology Diagnoses Metastatic carcinoma (HCC) Abnormal breast biopsy Isabel Morales CRNP [address] [place] [address] Referral ID Status Reason Start Date Expiration Date Visits Requested Visits Authorized [id number] Authorized Specialty Services Required 02/01/2023 999 999 Question Answer Referral Priority Within 10 days (routine) Reason for Referral Malignant Oncology (Solid Organ Cancer) * Evaluate & Treat - Unlimited Visits (Within 10 days (routine)) - Authorized Specialty Diagnoses / Procedures Referred By Fer lamazan Referred To Contact Breast Clinic Multi Specialty / Surgical Oncology Diagnoses Abnormal mammogram Metastatic carcinoma (HCC) Abnormal breast biopsy Isabel Morales CRNP [address] [place] [address] Referral ID Status Reason Start Date Expiration Date Visits Requested Visits Authorized [id number] Authorized Specialty Services Required 02/01/2023 999 999 Question Answer Referral Priority Within 10 days (routine) What is the reason to be seen? Breast Cancer Is there suspicion of Breast Cancer? Yes Comments Biopsy positive for carcinoma Reason for Visit * Reason Onset Date Comments Test Results Biopsy 02/01/2023 Referral 02/01/2023 Metastatic carci noma Encounter Details Date Type Department Care Team Description 02/01/2023 Telephone [facility] [place] [address] [place] [address] Isabel Morales CRNP 21 [facility] [place] [address] Test Results Biopsy; Referral (Metastatic ... Allergies Active Allergy Reactions Severity Noted Date Comments Penicillins 02/07/2014 documented as of this encounter (statuses as of 02/07/2023) Medications Medication Sig Dispensed Refills Start Date End Date Status MULTI-VITAMINS PO TABS one daily 0 Active [place] 3 1000 MG CAPS Take by mouth [...] Jayro Merrill MD [address] [place] [address] 02/15/2023 Office Visit Hematology Oncology Kevan Vickers MD 400 [facility] [place] [phone] 03/10/2023 Office Visit Cardiology Kimberlee Rodriguez MD 400 [facility] [place] [phone] 05/15/2023 Office Visit Family Medicine Isabel Morales CRNP [address] [place] [phone] 09/15/2023 Office Visit Dermatology [facility]ya [facility]-C [facility] [address] [place] [phone] Scheduled Referrals Name Type Priority Associated Diagnoses [...] findings documented in this encounter Care Teams Guitar Teacher Relationship Specialty Start Date End Date Isabel Morales CRNP 21 [facility] [place] [address] PCP - General Nurse Practitioner 11/11/22 documented as of this encounter
--- OUTSIDE RECORDS SUMMARY | 2023-04-19 06:46 | External Medical Summary | Summary of Care ---
Author Name Unknown Organization [facility] Address [address] [place] [address] Phone [phone] Care Team Providers Care Teacher Cclc Name Role Phone Isabel Morales Primary Care Provider +1- [phone] Encounter Details Date Type Department Care Team Description 11/18/2022 Hospital Encounter Radiology, [address] [place] [address] Arrived Allergies Active Allergy Reactions Severity Noted Date Comments Penicillins 02/07/2014 documented as of this encounter (statuses as of 11/19/2022) Medications Medication Sig Dispensed Refills Start Date End Date Status MULTI-VITAMINS PO TABS one daily 0 Active [place] 3 1000 MG CAPS Take by mouth [...] as of this encounter (statuses as of 11/19/2022) Active Problems Problem Noted Date Advanced directives, counseling/discussi on 08/06/2021 Urge incontinence of urine 08/06/2021 Other hyperlipidemia 08/14/2018 Severe obesity (BMI 35.0-39.9) with sridevi rbidity 08/10/2017 HTN, goal below 140/90 11/16/2015 Overview: Per HTN Protocol documented as of this encounter (statuses as of 11/19/2022) Resolved Problems Problem Noted Date Resolved Date Myelopathy 10/23/2018 01/26/2022 Obesity (BMI 35.0-39.9 without comorbidity) 01/201808/10/2017 Class 2 obesity with body ma ss index (BMI) of 35 to 39.9 without comorbidity 12/12/2016 08/10/2017 HTN, goal below 140/80 05/26/2015 6 Overview: Per HTN Protocol Essential hypertension 5 Overview: ICD-10 update of inactive term documented as of this encounter (statuses as of 11/19/2022) Immunizations Name Administration Dates Next Due Pneumococcal [...] Office Visit [facility] [phone] 05/15/2023 Office Visit Family Medicine Isabel Morales CRNP 21 [place] [phone] 09/15/2023 Office Visit Dermatology Liliya Koch PA-C 27 [place] [phone] Pending Results Name Type Priority Associated Diagnoses Date /Time MAMMOGRAM SCREENING MARIBEL BILATERAL Medical Imaging Routine Encounter for screening mammogram for breast cancer 11/18/2022 3:00 PM EDT Scheduled Orders Name Type Priority Associated Diagnoses Orde r Schedule MAMMOGRAM SCREENING MARIBEL BILATERAL Medical Imaging Routine Encounter for screening mammogram for breast cancer 1 Occurrences starting 11/18/2022 until 11/18/2022 Health Maintenance Due Date Last Done Comments [...] as of this encounter Visit Diagnoses Diagnosis Encounter for screening mammogram for breast cancer documented in this encounter Care Teams Teacher Cclc Relationship Specialty Start Date End Date Isabel Morales CRNP 21 [facility] [place] [phone] PCP - General Nurse Practitioner 11/11/22 documented as of this encounter
--- OUTSIDE RECORDS SUMMARY | 2023-04-19 06:46 | External Medical Summary ---
Author Name Unknown Address Unknown Organization K01:[facility] [place] [facility] [address] [facility] [address] [facility] [address] Laboratory Report Ordering Provider Test Date Status JUJU NEVILLE 11/11/2022 15:10:29 Final Observation Date Value Abnormality Reference (Units ) Status WBC, Total 11/11/2022 15:10:29 5.62 4.00-10.80 (K/uL) Final RBC 11/11/2022 15:10:29 4.66 3.85-5.15 (M/uL) Final Hemoglobin 11/11/2022 15:10:29 14.2 12.0-15.3 (g/dL) Final HCT 11/11/2022 15:10:29 43.3 36.0-45.2 (%) Final MCV 11/11/2022 15:10:29 92.9 81.5-97.5 (fL) Final MCH 11/11/2022 15:10:29 30.5 27.0-34.0 (pg) Final MCHC 11/11/2022 15:10:29 32.8 32.0-36.0 (g/dL) Final RDW 11/11/2022 15:10:29 13.7 11.5-15.5 (%) Final Platelets 11/11/2022 15:10:29 221 140-400 (K/uL) Final MPV 11/11/2022 15:10:29 10.9 6.6-11.1 (fL) Final Nucleated erythrocytes/100 leukocytes [Ratio] in Blood by Automated count 11/11/2022 15:10:29 0 <=0 (/100 WBCs) Final Performing Location [facility] [place] [facility] [address] [facility] [address]
--- OUTSIDE RECORDS SUMMARY | 2023-04-19 06:46 | External Medical Summary | Summary of Care ---
Author Name Unknown Organization [facility] Address [address] [place] [address] Phone [phone] Care Team Providers Care Public Records Officer Name Role Phone Isabel Morales Primary Care Provider +1- [phone] Reason for Visit * Reason Onset Date Comments Order Request 11/22/2022 Breast Ultrasoun d Encounter Details Date Type Department Care Team Description 11/22/[address] [facility] [address] [place] [address] Isabel Morales CRNP [address] [place] [address] Order Request (Breast Ultrasound) Allergies Active Allergy Reactions Severity Noted Date Comments Penicillins 02/07/2014 documented as of this encounter (statuses as of 11/22/2022) Medications Medication Sig Dispensed Refills Start Date End Date Status MULTI-VITAMINS PO TABS one daily 0 Active [place] 3 1000 MG CAPS Take by mouth [...] as of this encounter (statuses as of 11/22/2022) Active Problems Problem Noted Date Advanced directives, counseling/discussi on 08/06/2021 Urge incontinence of urine 08/06/2021 Other hyperlipidemia 08/14/2018 Severe obesity (BMI 35.0-39.9) with sridevi rbidity 08/10/2017 HTN, goal below 140/90 11/16/2015 Overview: Per HTN Protocol documented as of this encounter (statuses as of 11/22/2022) Resolved Problems Problem Noted Date Resolved Date Myelopathy 10/23/2018 01/26/2022 Obesity (BMI 35.0-39.9 without comorbidity) 01/201808/10/2017 Class 2 obesity with body ma ss index (BMI) of 35 to 39.9 without comorbidity 12/12/2016 08/10/2017 HTN, goal below 140/80 05/26/2015 6 Overview: Per HTN Protocol Essential hypertension 5 Overview: ICD-10 update of inactive term documented as of this encounter (statuses as of 11/22/2022) Immunizations Name Administration Dates Next Due Pneumococcal [...] * Telephone Encounter - DARIUSZ Fung - 11/22/2022 10:31 AM EDT Per 11/18 mammogram recommendation, patient needs to be scheduled per below. Impression Left Left axilla lymph node. Assessment: 0 - Incomplete. Callback ultrasound is recommended. Recommendation Callback ultrasound is recommended for the left axilla. Diagnostic mammogram order placed. Unable to place ultrasound order. Please review and place appropriate order. Thank you documented in this encounter Plan of Treatment Upcoming Encounters Date Type Specialty Care Team Description 03/02/2023 Office Visit Cardiology Kimberlee Rodriguez MD 400 [facility] [place] [phone] 05/15/2023 Office Visit Family Medicine Isabel Morales CRNP 21 [place] [phone] 09/15/2023 Office Visit Dermatology Liliya Koch PA-C [address] [place] [phone] Health Maintenance Due Date Last Done Comments [...] filedocumented as of this encounter Care Teams Public Records Officer Relationship Specialty Start Date End Date Isabel Morales CRNP 21 [facility] [place] [address] PCP - General Nurse Practitioner 11/11/22 documented as of this encounter
--- OUTSIDE RECORDS SUMMARY | 2023-04-19 06:46 | External Medical Summary | Summary of Care ---
Author Name Unknown Organization [facility] Address [address] [place] [address] Phone [phone] Care Team Providers Care Adjunct Faculty Name Role Phone Isabel Morales Primary Care Provider +1- [phone] Reason for Visit * Reason Comments Outpatient Testing Encounter Details Date Type Department Care Team Description 11/11/2022 Laboratory Laboratory, [place] [address] [place] [address] [place], [facility] [address] [place] [address] HTN, goal below 140/90; Other hyperlipidemia Allergies Active Allergy Reactions Severity Noted Date Comments Penicillins 02/07/2014 documented as of this encounter (statuses as of 11/11/2022) Medications Medication Sig Dispensed Refills Start Date End Date Status MULTI-VITAMINS PO TABS one daily 0 Active [place] 3 1000 MG CAPS Take by mouth [...] as of this encounter (statuses as of 11/11/2022) Active Problems Problem Noted Date Advanced directives, counseling/discussi on 08/06/2021 Urge incontinence of urine 08/06/2021 Other hyperlipidemia 08/14/2018 Severe obesity (BMI 35.0-39.9) with sridevi rbidity 08/10/2017 HTN, goal below 140/90 11/16/2015 Overview: Per HTN Protocol documented as of this encounter (statuses as of 11/11/2022) Resolved Problems Problem Noted Date Resolved Date Myelopathy 10/23/2018 01/26/2022 Obesity (BMI 35.0-39.9 without comorbidity) 01/201808/10/2017 Class 2 obesity with body ma ss index (BMI) of 35 to 39.9 without comorbidity 12/12/2016 08/10/2017 HTN, goal below 140/80 05/26/2015 6 Overview: Per HTN Protocol Essential hypertension 5 Overview: ICD-10 update of inactive term documented as of this encounter (statuses as of 11/11/2022) Immunizations Name Administration Dates Next Due Pneumococcal [...] Encounters Date Type Specialty Care Team Description 11/14/2022 Office Visit Nephrology Cain William MD [address] [place] [phone] 11/18/2022 Appointment Radiology 03/02/2023 Office Visit Cardiology Kimberlee Rodriguez MD [address] [place] [phone] 05/15/2023 Office Visit Family Medicine Isabel Morales CRNP 21 [place] [phone] 09/15/2023 Office Visit Dermatology Liliya Koch PA-C [address] [place] [address] Pending Results Name Type Priority Associated Diagnoses Date /Time COMPREHENSIVE METABOLIC PANEL Lab Routine HTN, goal below 140/90 11/11/2022 3:10 PM EDT LIPID PANEL WITH DIRECT LDL IF TG IS HIGH Lab Routine Other hyperlipidemia 11/11/2022 3:10 PM EDT CBC Lab Routine HTN, goal below 140/90 11/11/2022 3:10 PM EDT Health Maintenance Due Date Last Done Comments COVID-19 Vaccine (#1) 1945 DTaP,Tdap,and Td Vaccines (1 - Tdap) 1966 Zoster Vaccines (1 of 2) 1997 DXA Scan 03/26/2020 03/26/2013 Depression Screening, Annual for Pts 12 and Over 01/26/2023 01/26/2022 GFR 01/26/2023 01/26/2022, 07/0 06/2020, 08/10/2017, Additional history exists Influenza Vaccine (FLU shot) (Season Ended) 2023 Albumin/Creatinine Ratio 01/26/2025 01/26/2022, 06/05 Colonoscopy Discontinued [...] as of this encounter Visit Diagnoses Diagnosis HTN, goal below 140/90 Unspecified essential hypertension Other hyperlipidemia documented in this encounter Care Teams Adjunct Faculty Relationship Specialty Start Date End Date Isabel Morales CRNP 21 [facility] [place] [address] PCP - General Nurse Practitioner 11/11/22 documented as of this encounter
--- OUTSIDE RECORDS SUMMARY | 2023-04-19 06:46 | External Medical Summary | Summary of Care ---
Author Name Unknown Organization [facility] Address [address] [place] [address] Phone [phone] Care Team Providers Care Panama Hat Smearer Name Role Phone Isabel Morales Primary Care Provider [phone]- [phone] Reason for Visit * Reason Onset Date Comments Order Request 11/22/2022 Breast Ultrasoun d Encounter Details Date Type Department Care Team Description 11/22/2022 Telephone [facility] [address] [place] [address] Isabel Morales CRNP [address] [place] [address] Order Request (Breast Ultrasound) Allergies Active Allergy Reactions Severity Noted Date Comments Penicillins 02/07/2014 documented as of this encounter (statuses as of 11/23/2022) Medications Medication Sig Dispensed Refills Start Date End Date Status MULTI-VITAMINS PO TABS one daily 0 Active [place] 3 1000 MG CAPS Take by mouth [...] as of this encounter (statuses as of 11/23/2022) Active Problems Problem Noted Date Advanced directives, counseling/discussi on 08/06/2021 Urge incontinence of urine 08/06/2021 Other hyperlipidemia 08/14/2018 Severe obesity (BMI 35.0-39.9) with sridevi rbidity 08/10/2017 HTN, goal below 140/90 11/16/2015 Overview: Per HTN Protocol documented as of this encounter (statuses as of 11/23/2022) Resolved Problems Problem Noted Date Resolved Date Myelopathy 10/23/2018 01/26/2022 Obesity (BMI 35.0-39.9 without comorbidity) 01/201808/10/2017 Class 2 obesity with body ma ss index (BMI) of 35 to 39.9 without comorbidity 12/12/2016 08/10/2017 HTN, goal below 140/80 05/26/2015 6 Overview: Per HTN Protocol Essential hypertension 5 Overview: ICD-10 update of inactive term documented as of this encounter (statuses as of 11/23/2022) Immunizations Name Administration Dates Next Due Pneumococcal [...] as of this encounter Miscellaneous Notes * Addendum Note - Antony Jenkins MD - 11/22/2022 3:23 PM EDTAddended by: ANTONY JENKINS on: 11/22/2022 03:23 PM Modules accepted: Orders * Telephone Encounter - Antony Jenkins MD - 11/22/2022 3:23 PM EDT Order placed * Telephone Encounter - DARIUSZ Fung - [...] 03/02/2023 Office Visit Cardiology Kimberlee Rodriguez MD [address] [place] [address] [place] [phone] 05/15/2023 Office Visit Family Medicine Isabel Morales CRNP [address] [place] [address] 09/15/2023 Office Visit Dermatology Liliya Koch PA-C [address] [place] [address] Scheduled Orders Name Type Priority Associated Diagnoses Orde r Schedule US BREAST LIMITED LEFT Medical Imaging Routine Abnormal mammogram Expected: 11/22/2022, Expires: 12/23/2023 Health Maintenance Due Date Last Done Comments [...] unspecified documented in this encounter Care Teams Panama Hat Smearer Relationship Specialty Start Date End Date Isabel Morales CRNP [address] [place] [address] PCP - General Nurse Practitioner 11/11/22 documented as of this encounter
--- OUTSIDE RECORDS SUMMARY | 2023-04-19 06:46 | External Medical Summary | Summary of Care ---
Author Name Unknown Organization [facility] Address [address] [place] [address] Phone [phone] Care Team Providers Care Hospital Admissions Officer Name Role Phone Isabel Morales Primary Care Provider [phone]- [phone] Reason for Visit * Reason Comments Follow Up 6 mo Encounter Details Date Type Department Care Team Description 11/11[facility] [place] [address] Isabel Morales CRNP [address] [place] [address] HTN, goal below 140/90*; Other hyperlipidemia; Urge incontinence of urine; Encounter for screening mammogram for breast cancer; Stage 2 chronic kidney disease Allergies Active Allergy Reactions Severity Noted Date Comments Penicillins 02/07/2014 documented as of this encounter (statuses as of 11/21/2022) Medications Medication Sig Dispensed Refills Start Date End Date Status MULTI-VITAMINS PO TABS one daily 0 Active [place] 3 1000 MG CAPS Take by mouth [...] as of this encounter (statuses as of 11/21/2022) Active Problems Problem Noted Date Advanced directives, counseling/discussi on 08/06/2021 Urge incontinence of urine 08/06/2021 Other hyperlipidemia 08/14/2018 Severe obesity (BMI 35.0-39.9) with sridevi rbidity 08/10/2017 HTN, goal below 140/90 11/16/2015 Overview: Per HTN Protocol documented as of this encounter (statuses as of 11/21/2022) Resolved Problems Problem Noted Date Resolved Date Myelopathy 10/23/2018 01/26/2022 Obesity (BMI 35.0-39.9 without comorbidity) 01/201808/10/2017 Class 2 obesity with body ma ss index (BMI) of 35 to 39.9 without comorbidity 12/12/2016 08/10/2017 HTN, goal below 140/80 05/26/2015 6 Overview: Per HTN Protocol Essential hypertension 5 Overview: ICD-10 update of inactive term documented as of this encounter (statuses as of 11/21/2022) Immunizations Name Administration Dates Next Due Pneumococcal Conjugate Vacc, 13 Valent (Prevnar) 05/26/2015 Pneumococcal Polysaccharide PPV23 (Pneumovax) documented as of this encounter Social History Tobacco Use Types Packs/Day Years Used Date Smoking Tobacco: Never Smokeless Tobacco: Never Tobacco Cessation:Counseling Given: No Alcohol Use Standard Drinks/Week Comments No 0 [...] Sign Reading Time Taken Comments Blood Pressure 138/70 11/11/2022 2:30 PM EDT Pulse 58 11/11/2022 2:30 PM EDT Temperature 36.6 C (97.9 F) 11/11/2022 2:30 PM ED T Respiratory Rate 18 11/11/2022 2:30 PM EDT Oxygen Saturation 98% 11/11/2022 2:30 PM EDT Inhaled Oxygen Concentration - - Weight 93.7 kg (206 lb 8 oz) 11/11/2022 2:30 PM EDT Height - - Body Mass Index 36.58 02/10/2022 12:48 PM EDT documented in this encounter Progress Notes * SWATHI Strong - 11/11/2022 2:45 PM EDT Images from the original note were not included. History of Present Illness Chelsie Robertson is a 77 year old female that presents for Follow Up (6 mo) Presents for routine follow-up. Hyperlipidemia/hypertension/CKD on amlodipine, losartan, metoprolol, HCTZ and atorvastatin. Followswith cardiology and nephrolog. No chest pain, shortness of breath, dizziness, palpitations or edema. Urge incontinence on Vesicare. With some improvement. Diet/exercise: not much exercise. Cooks most meals at home, tries to eat a balanced diet. Mammogram due, will schedule. Physical Exam Vitals: 11/11/22 1430 Temp: 36.6 C (97.9 F) Pulse: 58 Resp: 18 SpO2: 98% BP: 138/70 Physical Exam Vitals and nursing note reviewed. Constitutional: General: She is not in acute distress. Appearance: Normal appearance. She is obese. She is not ill-appearing. HENT: Head: Normocephalic and atraumatic. Right Ear: Tympanic membrane and ear canal normal. Left Ear: Tympanic membrane and ear canal normal. Nose: Nose normal. Eyes: Extraocular Movements: Extraocular movements intact. Cardiovascular: Rate and Rhythm: Normal rate and regular rhythm. Pulses: Normal pulses. Heart sounds: Normal heart sounds. No murmur heard. No friction rub. No gallop. Pulmonary: Effort: Pulmonary effort is normal. No respiratory distress. Breath sounds: Normal breath sounds. No wheezing, rhonchi or rales. Abdominal: General: Bowel sounds are normal. Palpations: Abdomen is soft. Musculoskeletal: Cervical back: Normal range of motion and neck supple. No tenderness. Right lower leg: No edema. Left lower leg: No edema. Lymphadenopathy: Cervical: No cervical adenopathy. Skin: General: Skin is warm and dry. Neurological: Mental Status: She is alert and oriented to person, place, and time. Psychiatric: Behavior: Behavior normal. I have reviewed the following results: CMP, Lipid Panel, TSH and CBC Assessment and Plan HTN, goal below 140/90 Stable. Follow-up with cardiology as scheduled. - COMPREHENSIVE METABOLIC PANEL; Future - CBC; Future Other hyperlipidemia - LIPID PANEL WITH DIRECT LDL IF TG IS HIGH; Future Urge incontinence of urine Continue Vesicare as prescribed. Encounter for screening mammogram for breast cancer - MAMMOGRAM SCREENING MARIBEL BILATERAL; Future Stage 2 chronic kidney disease Stable. Wrap-Up Follow Up: Return in about 6 months (around 05/13/2023), or if symptoms worsen or fail to improve, for routine follow-up. | For: routine follow-up | Check-out note: Lab today please Will order labs for 6 months to have done 2-3 days prior to appointment. Time: I spent a total of 30-39 minutes (exact time 35 mins) on the date of service in preparation, delivery, and documentation of the care provided to Chelsie Robertson excluding any time spent in the performanceof separately billed services. documented in this encounter Nursing Notes * Eliane Savage CMA - 11/11/2022 2:27 PM EDT Chief Complaint Patient presents with Follow Up 6 mo No concerns for today. Last saw Dr. Stoddard. Patient has been verbally educated on the need or importance of Dexa Scan and Immunizations: shingles, tdap documented in this encounter Plan of Treatment Upcoming Encounters Date Type Specialty Care Team Description 03/02/2023 Office Visit Cardiology Kimberlee Rodriguez MD [address] [place] [phone] 05/15/2023 Office Visit Family Medicine Isabel Morales CRNP [address] [place] [phone] 09/15/2023 Office Visit Dermatology Liliya Koch PA-C [address] [place] [address] Pending Results Name Type Priority Associated Diagnoses Date /Time MAMMOGRAM SCREENING MARIBEL BILATERAL Medical Imaging Routine Encounter for screening mammogram for breast cancer 11/18/2022 3:00 PM EDT Scheduled Orders Name Type Priority Associated Diagnoses Orde r Schedule MAMMOGRAM SCREENING MARIBEL BILATERAL Medical Imaging Routine Encounter for screening mammogram for breast cancer Expected: 11/11/2022 (Approximate), Expires: 12/12/2023 Health Maintenance Due Date Last Done Comments [...] filedocumented as of this encounter Results * CBC (11/11/2022 3:10 PM EDT) WBC 5.62 4.00 - 10.80 K/uL 11/11/2022 10:25 PM EDT [facility] RBC 4.66 3.85 - 5.15 M/uL 11/11/2022 10:25 PM EDT [facility] HGB 14.2 12.0 - 15.3 g/dL 11/11/2022 10:25 PM EDT [facility] HCT 43.3 36.0 - 45.2 % 11/11/2022 10:25 PM EDT [facility] MCV 92.9 81.5 - 97.5 fL 11/11/2022 10:25 PM EDT [facility] MCH 30.5 27.0 - 34.0 pg 11/11/2022 10:25 PM EDT [facility] MCHC 32.8 32.0 - 36.0 g/dL 11/11/2022 10:25 PM EDT [facility] RDW 13.7 11.5 - 15.5 % 11/11/2022 10:25 PM EDT [facility] PLT 221 140 - 400 K/uL 11/11/2022 10:25 PM EDT [facility] MPV 10.9 6.6 - 11.1 fL 11/11/2022 10:25 PM EDT [facility] nRBCs 0 <=0 /100 WBCs 11/11/2022 10:25 PM EDT [facility]ORY [facility] Blood Venous blood specimen / Unknown Venipuncture / Unknown 11/11/2022 3:10 PM EDT 11/11/2022 3:10 PM EDT Isabel ECHEVARRIA LAB BLOOD ORDERABL ES [facility] [address] [place] [address] * (ABNORMAL) LIPID PANEL WITH DIRECT LDL IF TG IS HIGH (11/11/2022 3:10 PM EDT) Triglycerides 119 <=174 mg/dL 11/11/2022 10:41 PM EDT [facility]ORY [facility] Comment: Triglyceride Reference Ranges (mg/dL): <150 Acceptable 150-174 Borderline high 175-499 High >=500 Very high Cholesterol 241(H) <200 mg/dL 11/11/2022 10:41 PM EDT LAB[facility]ORY [facility] Comment: Total Cholesterol Reference Ranges (mg/dL): <200 Desirable 200-239 Borderline high >=240 High HDL Cholesterol 66 >49 mg/dL 10:41 PM EDT [facility] Comment: HDL Cholesterol Reference Ranges (mg/dL): >=60 High (Desirable) <50 Low (Undesirable) For Females <40 Low (Undesirable) For Males Non-HDL Cholesterol 175(H) <=159 mg/dL 11/11/2022 10:41 PM EDT [facility] Comment: Non-HDL Cholesterol Reference Range (mg/dL): <100 Target level for high risk ASCVD patient <130 Optimal for general population 130-159 Near optimal for general population 160-189 Borderline High 190-219 High >=220 Very High LDL Cholesterol 151(H) <=129 mg/dL 11/11/2022 10:41 PM EDT LAB[facility] Comment: LDL Cholesterol Reference Ranges (mg/dL): <70 Target level for high risk ASCVD patient <100 Optimal for general population 100-129 Near optimal for general population 130-159 Borderline high 160-189 High >=190 Very high Blood Venous blood specimen / Unknown Venipuncture / Unknown 11/11/2022 3:10 PM EDT 11/11/2022 3:10 PM EDT Isabel Morales SANDAL PARTS ASSEMBLER LAB BLOOD ORDERABL ES [facility] [address] [place] [address] * (ABNORMAL) COMPREHENSIVE METABOLIC PANEL (11/11/2022 3:10 PM EDT) BUN 21(H) 6 - 20 mg/dL 11/11/2022 10:41 PM EDT [facility] Creatinine 0.9 0.5 - 1.0 mg/dL 11/11/2022 10:41 PM EDT [facility] Estimated Glomerular Filtration Rate 67 >=60 mL/min 11/11/2022 10:41 PM EDT [facility] Comment:eGFR is calculated b ased on the CKD-EPI 2020 equation Sodium 137 135 - 146 mmol/L 11/11/2022 10:41 PM EDT [facility] Potassium 4.4 3.5 - 5.1 mmol/L 11/11/2022 10:41 PM EDT [facility] Chloride 101 98 - 107 mmol/L 11/11/2022 10:41 PM EDT [facility] CO2 24 22 - 32 mmol/L 11/11/2022 10:41 PM EDT [facility] Anion Gap 12 7 - 15 mmol/L 11/11/2022 10:41 PM EDT [facility] Glucose 83 70 - 120 mg/dL 11/11/2022 10:41 PM EDT [facility] Albumin 4.2 3.8 - 5.0 g/dL 11/11/2022 10:41 PM EDT [facility] AST 21 10 - 35 U/L 11/11/2022 10:41 PM EDT [facility] Comment:Result may be falsel y elevated due to hemolysis. Alkaline Phosphatase 68 35 - 130 U/L 11/11/2022 10:41 PM EDT [facility] Bilirubin, Total 0.6 <=1.2 mg/dL 11/11/2022 10:41 PM EDT [facility] Calcium 9.7 8.4 - 10.2 mg/dL 11/11/2022 10:41 PM EDT [facility] Protein 6.7 6.0 - 8.3 g/dL 11/11/2022 10:41 PM EDT [facility] ALT 16 10 - 35 U/L 11/11/2022 10:41 PM EDT LAB[facility]ORY [facility] Blood Venous blood specimen / Unknown Venipuncture / Unknown 11/11/2022 3:10 PM EDT 11/11/2022 3:10 PM EDT Isabel ECHEVARRIA LAB BLOOD ORDERABL ES [facility] [address] [place] [address] documented in this encounter Visit Diagnoses Diagnosis HTN, goal below 140/90- Primary Unspecified essential hypertension Other hyperlipidemia Urge incontinence of urine Urge incontinence Encounter for screening mammogram for breast cancer Stage 2 chronic kidney disease documented in this encounter Care Teams Hospital Admissions Officer Relationship Specialty Start Date End Date [facility] [phone] PCP - General Nurse Practitioner 11/11/22 documented as of this encounter"
--- OUTSIDE RECORDS SUMMARY | 2023-04-19 06:46 | External Medical Summary | Summary of Care ---
Author Name Unknown Organization [facility] Address [address] [place] [address] Phone [phone] Care Team Providers Care Creative Consultant Name Role Phone Isabel Morales Primary Care Provider +1- [phone] Reason for Visit * Reason Onset Date Comments Order Request 11/22/2022 Breast Ultrasoun d Encounter Details Date Type Department Care Team Description 11/22/2022 Telephone [facility] [address] [place] [address] Isabel Morales CRNP [address] [place] [address] Order Request (Breast Ultrasound) Allergies Active Allergy Reactions Severity Noted Date Comments Penicillins 02/07/2014 documented as of this encounter (statuses as of 11/22/2022) Medications Medication Sig Dispensed Refills Start Date End Date Status MULTI-VITAMINS PO TABS one daily 0 Active [place] 3 1000 MG CAPS Take by mouth [...] 03/02/2023 Office Visit Cardiology Kimberlee Rodriguez MD [address] [place] [address] [place] [phone] 05/15/2023 Office Visit Family Medicine Isabel Morales CRNP [address] [place] [address] 09/15/2023 Office Visit Dermatology Liliya Koch PA-C [address] [place] [address] Scheduled Orders Name Type Priority Associated Diagnoses [...] unspecified documented in this encounter Care Teams Creative Consultant Relationship Specialty Start Date End Date Isabel Morales CRNP [address] [place] [address] PCP - General Nurse Practitioner 11/11/22 documented as of this encounter
--- OUTSIDE RECORDS SUMMARY | 2023-04-19 06:46 | External Medical Summary ---
Author Name Unknown Address Unknown Organization K01:[facility] - [address] [facility] [address] Laboratory Report Ordering Provider Test Date Status JUJU NEVILLE 11/11/2022 15:10:29 Final Observation Date Value Abnormality Reference (Units ) Status Triglyceride 11/11/2022 15:10:29 119 <=174 ( mg/dL) Final Triglyceride Reference Range s (mg/dL):
<150 Acceptable
150-174 Borderline high
175-499 High
>=500 Very high Cholesterol 11/11/2022 15:10:29 241 Above high normal <200 (mg/dL) Final Total Cholesterol Reference Ranges (mg/dL):
<200 Desirable
200-239 Borderline high
>=240 High HDL 11/11/2022 15:10:29 66 >49 (mg/dL ) Final HDL Cholesterol Reference Ra nges (mg/dL):
>=60 High (Desirable)
<50 Low (Undesirable) For Females
<40 Low (Undesirable) For Males NON-HDL CHOLESTEROL 11/11/2022 15:10:29 175 Above high normal <=159 (mg/dL) Final Non-HDL Cholesterol Referenc e Range (mg/dL):
<100 Target level for high risk ASCVD patient
<130 Optimal for general population
130-159 Near optimal for general population
160-189 Borderline High
190-219 High
>=220 Very High LDL, (calculated) 11/11/2022 15:10:29 151 Above high n ormal <=129 (mg/dL) Final LDL Cholesterol Reference Ra nges (mg/dL):
<70 Target level for high risk ASCVD patient
<100 Optimal for general population
100-129 Near optimal for general population
130-159 Borderline high
160-189 High
>=190 Very high Performing Location LABORATORY [facility] - [address] [facility] [address]
--- OUTSIDE RECORDS SUMMARY | 2023-04-19 06:46 | External Medical Summary | Summary of Care ---
Author Name Unknown Organization [facility] Address [address] [place] [address] Phone [phone] Care Team Providers Care Terrazzo Journeyman Name Role Phone Unavailable Primary Care Provider Unavailabl e Reason for Visit * Reason Onset Date Comments Medication Refill 11/07/2022 Encounter Details Date Type Department Care Team Description 11/07/2022 [facility] [place] [address] Jamin Morales CRNP [address] [place], [place] [phone] Physical exam, annual Allergies Active Allergy Reactions Severity Noted Date Comments Penicillins 02/07/2014 documented as of this encounter (statuses as of 11/07/2022) Medications Medication Sig Dispensed Refills Start Date End Date Status MULTI-VITAMINS PO TABS one daily 0 Active [place] 3 1000 MG CAPS Take by mouth 1 Tablet daily . 0 Active Atorvastatin Calcium 20 MG Oral Tablet (Lipitor) Take by mouth 1 Tablet in the morning. 34 Tablet 11 02/10/2022 Active Solifenacin Succinate 5 MG Oral Tablet (VESIcare) Take 1 Tablet by mouth in the morning. 90 Tablet 3 06/16/2022 Active Metoprolol Tartrate 50 MG Oral Tablet (Lopressor)Indic ations:Physical exam, annual Take 1 Tablet by mouth in the morning and 1 Tablet before bedtime. 180 Tablet 1 06/15/2022 Active Losartan Potassium 50 MG Oral Tablet (Cozaar)Indicati ons:Essential hypertension, benign Take 1 Tablet by mouth in the morning. 90 Tablet 1 06/15/2022 Active amLODIPine Besylate 10 MG Oral Tablet (Norvasc)Indicat ions:Physical exam, annual Take 1 Tablet by mouth in the morning. 90 Tablet 1 06/15/2022 Active Estradiol 0.1 MG/GM Vaginal Cream (Estrace) Administer 0.5 g into the vagina once a day Monday and only. At bedtime 42.5 g 3 09/29/2022 Active hydroCHLOROthiaz lisa 12.5 MG Oral Capsule (Hydrodiuril)Ind ications:Physica l exam, annual Take 1 Capsule by mouth in the morning. 90 Capsule 1 11/07/2022 Active hydroCHLOROthiaz lisa 12.5 MG Oral Capsule (Hydrodiuril)Ind ications:Physica l exam, annual Take 1 Capsule by mouth in the morning. 90 Capsule 1 06/15/2022 11/07/2022 Discontinue d(Refill) documented as of this encounter (statuses as of 11/07/2022) Active Problems Problem Noted Date Advanced directives, counseling/discussi on 08/06/2021 Urge incontinence of urine 08/06/2021 Other hyperlipidemia 08/14/2018 Severe obesity (BMI 35.0-39.9) with sridevi rbidity 08/10/2017 HTN, goal below 140/90 11/16/2015 Overview: Per HTN Protocol documented as of this encounter (statuses as of 11/07/2022) Resolved Problems Problem Noted Date Resolved Date Myelopathy 10/23/2018 01/26/2022 Obesity (BMI 35.0-39.9 without comorbidity) 01/201808/10/2017 Class 2 obesity with body ma ss index (BMI) of 35 to 39.9 without comorbidity 12/12/2016 08/10/2017 HTN, goal below 140/80 05/26/2015 6 Overview: Per HTN Protocol Essential hypertension 5 Overview: ICD-10 update of inactive term documented as of this encounter (statuses as of 11/07/2022) Immunizations Name Administration Dates Next Due Pneumococcal [...] * Telephone Encounter - SWATHI Strong - 11/07/2022 2:54 PM EDTSigned Prescriptions: Disp Refills hydroCHLOROthiazide 12.5 MG Oral Capsule (*90 Cap*1 Sig: Take 1 Capsule by mouth in the morning. Authorizing Provider: JAMIN MORALES * Telephone Encounter - Sisi Quiros LPN - 11/07/2022 11:25 AM EDT Pending Prescriptions: Disp Refills hydroCHLOROthiazide 12.5 MG Oral Capsule *90 Cap*1 Sig: Take 1 Capsule by mouth in the morning. Last Visit: 01/26/2022 (in office), 12/03/2019 (telemedicine) Next Visit: 11/11/2022 Last date the medication was ordered: 06/15/22 Patient Active Problem List Diagnosis Code HTN, goal below 140/90 I10 Severe obesity (BMI 35.0-39.9) with comorbidity (HCC) E66.01 Other hyperlipidemia E78.49 Advanced directives, counseling/discussion Z71.89 Urge incontinence of urine N39.41 Labs: Lab Results Component Value Date/Time CREAT GFR 0.89 06/23/2016 07:58 AM CREATININE - [facility] 1.2 (H) 01/26/2022 03:45 PM CREATININE - [facility] 0.8 08/10/2017 09:36 AM CREATININE, RANDOM URINE - [facility] 333 01/26/2022 03:50 PM CREATININE, RANDOM URINE - [facility] 162 06/23/2016 08:03 AM Lab Results Component Value Date/Time POTASSIUM - [facility] 4.2 01/26/2022 03:45 PM POTASSIUM - [facility] 4.4 08/10/2017 09:36 AM Lab Results Component Value Date/Time TSH - [facility] 1.89 01/26/2022 03:45 PM Lab Results Component Value Date/Time LDL CHOLESTEROL (CALCULATED) - [facility] 167 (H) 01/26/2022 03:45 PM LDL CHOLESTEROL (CALCULATED) - [facility] 141 (H) 12/03/2020 10:01 AM LDL CHOLESTEROL (CALCULATED) - [facility] 134 (H) 06/23/2016 07:58 AM LDL CHOLESTEROL (CALCULATED) - [facility] 153 (H) 05/26/2015 10:50 AM Lab Results Component Value Date/Time ALT - [facility] 21 01/26/2022 03:45 PM ALT - [facility] 16 08/10/2017 09:36 AM Hemoglobin AIC Results: Lab Results Component Value Date/Time HEMOGLOBIN A1C - [facility] 5.5 01/26/2022 03:45 PM documented in this encounter Plan of Treatment Upcoming Encounters Date Type Specialty Care Team Description 11/11/2022 Office Visit Family Medicine Jamin Morales CRNP [address] [place] [phone] 11/14/2022 Office Visit Nephrology Cain William MD [address] [place], [place] [address] [address] 03/02/2023 Office Visit Cardiology Kimberlee Rodriguez MD [address] [place] [address] [place] [phone] 09/15/2023 Office Visit Dermatology Liliya Koch PA-C [address] [place] [address] Health Maintenance Due Date Last Done Comments [...] Years Completed 05/26/2015, 04/04/2014 Cologuard Discontinued 01/02/2020, 12/26/2019 Colorectal Cancer Screening Discontinued Fecal Occult [...] as of this encounter Visit Diagnoses Diagnosis Physical exam, annual Routine general medical examination at a health care facility documented in this encounter
--- OUTSIDE RECORDS SUMMARY | 2023-04-19 06:46 | External Medical Summary ---
Author Name Unknown Address Unknown Organization K01:LABORATORY [facility] [place] - [address] [facility] [id number] Laboratory Report Ordering Provider Test Date Status JUJU NEVILLE 11/11/2022 15:10:29 Final Observation Date Value Abnormality Reference (Units ) Status BUN 11/11/2022 15:10:29 21 Above high normal 6-20 (mg/dL) Final Creatinine 11/11/2022 15:10:29 0.9 0.5-1.0 (mg/dL) Final Glomerular filtration rate/1.73 sq M.predicted [Volume Rate/Area] in Serum, Plasma or Blood by Creatinine-based formula (CKD-EPI) 11/11/2022 15:10:29 67 >=60 (mL/min) Final eGFR is calculated based on the CKD-EPI 2020 equation SODIUM 11/11/2022 15:10:29 137 135-146 (m mol/L) Final Potassium 11/11/2022 15:10:29 4.4 3.5-5.1 (m mol/L) Final Cl 11/11/2022 15:10:29 101 98-107 (mm ol/L) Final CO2 11/11/2022 15:10:29 24 22-32 (mmo l/L) Final Anion gap 11/11/2022 15:10:29 12 7-15 (mmol /L) Final Glucose 11/11/2022 15:10:29 83 70-120 (mg /dL) Final Albumin 11/11/2022 15:10:29 4.2 3.8-5.0 (g /dL) Final AST (Aspartate aminotransferase) 11/11/2022 15:10:29 21 10-35 (U/L) Final Result may be falsely elevat ed due to hemolysis. Alk Phos 11/11/2022 15:10:29 68 35-130 (U/ L) Final Bilirubin, Total 11/11/2022 15:10:29 0.6 <=1 .2 (mg/dL) Final Calcium 11/11/2022 15:10:29 9.7 8.4-10.2 ( mg/dL) Final Protein 11/11/2022 15:10:29 6.7 6.0-8.3 (g /dL) Final ALT (Alanine aminotransferase) 11/11/2022 15:10:29 16 10-35 (U/L) Final Performing Location LABORATORY [facility] [place] - [address] [facility] [id number]
--- NOTE | 2023-04-20 10:20 | Discharge Summary ---
Date of Service April 20, 2023 Admission HPI Per Admitting Provider Chelsie is a 78 year-old female with metastatic cancer to left axillary lymph node consistent with breast primary presented to [facility] for elective left breast mastectomy and left sentinel lymph node biopsy by Dr. Jayro Merrill. Principal Diagnosis Left breast cancer metastatic to left axillary lymph node Discharge Data Allergies Allergy/AdvReac Type Severity Reaction Status Date / Time Penicillins Allergy Intermediate HIVES Verified 04/17/23 10:02 Consultations 04/17/23 16:08 Consult Hospitalist Routine Procedures Performed Operation Date: 04/17/23 10:30 Actual Procedures p Left Mastectomy, Left Axillary [place] Lymph Node Biopsy and Axillary [employer] Localized Lymph Node Excision(Left) - Jayro Merrill MD Ordered Studies 04/17/23 05:00 US - OR guided needle placemen Routine Hospital Course (1) Breast cancer: Patient was taken to operating room for left breast mastectomy and left axillary sentinel lymph node biopsy by Dr. Jayro Merrill. Patient tolerated procedure without difficulty and transferred to recovery room and then to medical/surgical floor for postoperative care. She was kept overnight for observation and pain management. Her diet was advanced as tolerated, pain management as needed, activity as needed. Hospitalist was consulted for comanagement of her comorbidities. Patient was evaluated on POD # 1, avss, postop pain controlled and tolerating diet. She was discharged home on POD # 1 in stable condition with close surgical follow up as scheduled. 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 Activity: Per Instructions section Lifting: No more than 10 pounds Sexual Activity: Wait until after follow-up appointment Exercise/Sports: Wait until after follow-up appointment Non-emergency contact: Surgeon Call non-emergency contact if: you have any medication questions, your symptoms worsen, your pain is not controlled, your pain is worsening, your pain is unusual for you, your temperature is above 101.5, your wound has increased redness, your wound has increased drainage and your wound pain has increased Follow-up/Referrals: Isabel Morales CRNP [Primary Care Provider] - Diet: Regular Addtl Attending Provider Instructions: Post-Surgical ~Discharge Instructions Activity Recommendations: - lifting limitation: (10 pounds for 2 weeks), - exercise/sex/sports limit: (nonstrenuous for 2 weeks), - driving or machine use limit: (none for 1 week), - Shower/bathe limit: (may shower beginning tomorrow) Diet: - Resume previous diet SPECIAL CARE INSTRUCTIONS: - May shower in 24 hours. Let water run over area and pat dry. No soaking in tub - Wear mastectomy bra for 2 weeks - Leave steri strips/dermabond on for one week. - Empty and record drain output as directed - When drain output is less than 25 mL/day for 3 days, call office for drain removal appointment - Call the surgeon's office with any questions or concerns - - (ex. temperature higher than 101 degrees F, excessive bleeding or pain). MEDICATIONS: - Resume previous medications unless instructed otherwise by your surgeon. - Ibuprofen 600 mg every 6 hours with food - Percocet 1 every 4 hours, as needed for pain FOLLOW UP VISIT: - If not already scheduled, please call the office to schedule a follow up appointment at the end of this week. Office number Pending Studies at Discharge: No Stand-Alone Forms: My [facility], Pain - Opioid Pain Management, Smoking Cessation Medications and DC Order Prescriptions: New oxycodone-acetaminophen [Percocet] 5-325 mg tablet 1 tab PO Q6H PRN (Reason: pain) Qty: 10 0RF Continued losartan 50 mg Tablet 50 mg PO QAM ascorbic acid (vitamin C) [Vitamin C] 1,000 mg Tablet 1 g PO TID Patient Comments: morning, noon, evening amlodipine 10 mg Tablet 10 mg PO QAM metoprolol tartrate 50 mg Tablet 50 mg PO BID solifenacin 5 mg Tablet 5 mg PO QAM hydrochlorothiazide 12.5 mg Tablet 12.5 mg PO QAM [id number]-[id number] Forte 50 mcg/drop (2, 000 unit/drop) Drops 200 mcg PO QAM Discharge Orders: Discharge Order (Routine); Ordered 04/18/23 Ordered By: Jayro Flores/Other Patient Handouts: Mastectomy Admission Data Admit Date/Time: 04/17/23 13:02 Attending Provider: Jayro Merrill Admit Provider: Jayro Merrill Primary Care Provider: Isabel Morales Other Providers: Christi Griffin; Olive Hermosillo I.; Vero Terry; Mahad Hogan; Kaitlyn Acevedo; Liana Schroeder; Jo Kulkarni; Felix Qureshi; Dajuan Bee; Andres Farfan; Gina Barnes; Gregory Gooden; Yen Alvarado; Denae Kc; Rosario Leo; Ward Osborn; Susanne Lima; Sunshine Infante; Talia Santana; Sayda Jang I.; Kasi Diana; Eugene Rosas; Octaviano Woodard; Ketty Jones; Jose Lakhani; George Baker; Matt Garcias; Leonor Walker; Ira Mir Other Interventions: Discharge Summary Assessment (RN) Last Done: 04/18/23 12:13
== END 2023-04-18 14:54 | disposition home or self-care (01) ==
LOC: ASU 09:05 → 3W 09:05
DX: Z79.899 Other long term (current) drug therapy; C77.3 Secondary and unspecified malignant neoplasm of axilla and upper limb lymph nodes; R07.9 Chest pain, unspecified; I10 Essential (primary) hypertension; Z80.3 Family history of malignant neoplasm of breast; E78.5 Hyperlipidemia, unspecified; Z88.0 Allergy status to penicillin; M21.371 Foot drop, right foot; Z17.0 Estrogen receptor positive status [ER+]; N32.81 Overactive bladder; C50.112 Malignant neoplasm of central portion of left female breast